=== PATIENT | female | born 1985 | race African-American/Black ===

== ENCOUNTER 2016-12-14 11:49 | Inpatient (IN) | payer MEDICAID ==
[2016-12-14] VITALS (9 sets, daily range): BP systolic 103–122; BP diastolic 55–72; PULSE 87–118; RESP 16–20; TEMP 98.7–102.8; O2SAT 99–100
[~2016-12-14] VITALS: Ht 167.6 cm; Wt 47.9 kg
[~2016-12-14 11:49] MED LIST: HYDR-3533 PO; PANT20 PO
[2016-12-14 13:01] LABS: AUTOMATED NEUTROPHIL # 8.3 TH/MM3 (1.8-7.7); BASOPHIL % 0.1 % (0.0-2.0); EOSINOPHIL % 0.1 % (0.0-4.0); HEMATOCRIT 32.5 % (35.0-46.0); LYMPH % 5.2 % (9.0-44.0); LYMPHOCYTE # 0.5 TH/MM3 (1.0-4.8); MEAN CELL VOLUME 105.2 FL (80.0-100.0); MEAN CORPUSCULAR HEMOGLOBIN 36.3 PG (27.0-34.0); MEAN CORPUSCULAR HGB CONC 34.5 % (32.0-36.0); MONO % 7.9 % (0.0-8.0); NEUT % 86.7 % (16.0-70.0); PLATELET COUNT 166 TH/MM3 (150-450); RED BLOOD COUNT 3.09 MIL/MM3 (4.00-5.30); RED CELL DISTRIBUTION WIDTH 22.7 % (11.6-17.2); WHITE BLOOD COUNT 9.6 TH/MM3 (4.0-11.0)
[2016-12-14 13:02] LABS: HEMO FLAGS AUTO DIFF
[2016-12-14 13:08] LABS: INTERNATIONAL NORMALIZED RATIO 1.1 RATIO; PROTHROMBIN TIME - PATIENT 12.4 SEC (9.8-11.6)
[2016-12-14 13:19] LABS: ALT (GPT) 14 U/L (10-53); ANION GAP 9 MEQ/L (5-15); AST (GOT) 15 U/L (15-37); BICARBONATE 27.3 MEQ/L (21.0-32.0); BLOOD UREA NITROGEN 7 MG/DL (7-18); CHLORIDE 105 MEQ/L (98-107); GLOMERULAR FILTRATION RATE 112 ML/MIN (>89); POTASSIUM 3.6 MEQ/L (3.5-5.1); SODIUM (NA) 141 MEQ/L (136-145)
[2016-12-14 13:21] LABS: ALKALINE PHOSPHATASE 91 U/L (45-117)
[2016-12-14 13:27] LABS: SCAN/DIFF AUTO DIFF CONFIRMED
[2016-12-14] MEDS ORDERED: SODIUM CHLOR 0.9% 1000 ML INJ 1,000 ML IV ONE (15:15)
[2016-12-14] MEDS ORDERED: ACETAMINOPHEN 500 MG CPLT PO ONE (15:30)
--- NOTE | 2016-12-14 15:32 | PD ---
HPI Chief Complaint: GI Complaint Time Seen by Provider: 14:54 Travel History International Travel<30 days: No Contact w/Intl Traveler<30days: No Traveled to known affect area: No History of Present Illness HPI This is a 31-year-old female who has a history of recurrent esophageal strictures and multiple abdominal surgeries in the past who presents to the emergency department with 2 days of lower abdominal pain, constant, cramping, moderate severity associated with blood and blood clots in her urine. She's also had a fever. She feels nauseous but has not vomited. She also reports that over the past week she has had increasing trouble both eating solids and drinking liquids. She has a history of recurrent esophageal strictures and is followed by advanced gastroenterology. [facility] Past Medical History Anemia: Yes Blood Disorders: No Cancer: No Cardiovascular Problems: No Diabetes: No Diminished Hearing: No Endocrine: No Gastrointestinal Disorders: Yes (DIFFICULTY SWALLOWING) GERD: Yes Genitourinary: No Hepatitis: No Hiatal Hernia: No Immune Disorder: No Musculoskeletal: No Neurologic: No Psychiatric: No Reproductive: No Respiratory: No Seizures: Yes Sickle Cell Disease: Yes (TRAIT) Thyroid Disease: No Tetanus Vaccination: > 5 Years ?: Not : 1 Para: 1 Miscarriage: 0 : 0 Past Surgical History Abdominal Surgery: No Body Medical Devices: NONE Section: Yes (2006) Genitourinary Surgery: Yes Gynecologic Surgery: Yes (C SECTION; TOTAL HYSTERECTOMY ) Hysterectomy: Yes Joint Replacement: No Pacemaker: No Other Surgery: Yes (HYSTERECTOMY) Social History Alcohol Use: No Tobacco Use: No Substance Use: No Allergies-Medications (Allergen,Severity, Reaction): Coded Allergies: Amoxicillin (Verified Allergy, Severe, Swelling, 12/14/16) Imitrex (Verified Allergy, Severe, DIZZY, 12/14/16) MIGRAINES Penicillin (Verified Allergy, Severe, HOT FLASHES, H/A, 12/14/16) ALL "CILLINS" Uncoded Allergies: ALL CILLINS (Allergy, Severe, 12/14/12) Reported Meds & Prescriptions Reported Meds & Active Scripts Active No Active Prescriptions or Reported Medications Review of Systems Except as stated in HPI: all other systems reviewed are Neg Physical Exam Narrative GENERAL: Cachectic, chronically ill-appearing SKIN: Focused skin assessment warm and dry. HEAD: Atraumatic. Normocephalic. EYES: Pupils equal and round. No injection or drainage. ENT: Moist mucous membranes NECK: Trachea midline. CARDIOVASCULAR: Regular rate and rhythm. No murmur appreciated. RESPIRATORY: Clear to auscultation. Breath sounds equal bilaterally. GASTROINTESTINAL: Abdomen soft, diffusely tender to palpation with no rebound or guarding. Urine is grossly bloody. Multiple old abdominal surgical scars MUSCULOSKELETAL: No obvious deformities. NEUROLOGICAL: Awake and alert. No obvious cranial nerve deficits. Moving all extremities. PSYCHIATRIC: Appropriate mood and affect; insight and judgment normal. Data Data Last Documented VS Vital Signs Date Time Temp Pulse Resp B/P Pulse Ox O2 Delivery O2 Flow Rate FiO2 12/14/16 16:28 98 17 115/60 99 Room Air 12/14/16 16:27 101.9 Orders Complete Blood Count With Diff (12/14/16 12:30) Comprehensive Metabolic Panel (12/14/16 12:30) Lipase (12/14/16 12:30) Prothrombin Time / Inr (Pt) (12/14/16 12:30) Act Partial Throm Time (Ptt) (12/14/16 12:30) Type And Screen (12/14/16 12:30) Lactic Acid Sepsis Protocol (12/14/16 12:30) Red Blood Cells (Rbc) (12/14/16 12:45) Urinalysis - C+S If Indicated (12/14/16 15:03) Barium Swallow (12/14/16 ) Sodium Chlor 0.9% 1000 Ml Inj (Ns 1000 M (12/14/16 15:15) Acetaminophen (Tylenol) (12/14/16 15:30) Urine Culture (12/14/16 15:14) Ciprofloxacin 400 Mg Premix (Cipro 400 M (12/14/16 16:30) Admit Order (Ed Use Only) (12/14/16 ) Labs Laboratory Tests Test 12/14/16 12/14/16 12:45 15:14 White Blood Count 9.6 TH/MM3 Red Blood Count 3.09 MIL/MM3 Hemoglobin 11.2 GM/DL Hematocrit 32.5 % Mean Corpuscular Volume 105.2 FL Mean Corpuscular Hemoglobin 36.3 PG Mean Corpuscular Hemoglobin 34.5 % Concent Red Cell Distribution Width 22.7 % Platelet Count 166 TH/MM3 Mean Platelet Volume 7.3 FL Neutrophils (%) (Auto) 86.7 % Lymphocytes (%) (Auto) 5.2 % Monocytes (%) (Auto) 7.9 % Eosinophils (%) (Auto) 0.1 % Basophils (%) (Auto) 0.1 % Neutrophils # (Auto) 8.3 TH/MM3 Lymphocytes # (Auto) 0.5 TH/MM3 Monocytes # (Auto) 0.8 TH/MM3 Eosinophils # (Auto) 0.0 TH/MM3 Basophils # (Auto) 0.0 TH/MM3 CBC Comment AUTO DIFF Differential Comment AUTO DIFF CONFIRMED Prothrombin Time 12.4 SEC Prothromb Time International 1.1 RATIO Ratio Activated Partial 28.0 SEC Thromboplast Time Sodium Level 141 MEQ/L Potassium Level 3.6 MEQ/L Chloride Level 105 MEQ/L Carbon Dioxide Level 27.3 MEQ/L Anion Gap 9 MEQ/L Blood Urea Nitrogen 7 MG/DL Creatinine 0.74 MG/DL Estimat Glomerular Filtration 112 ML/MIN Rate Random Glucose 120 MG/DL Lactic Acid Level 1.2 mmol/L Calcium Level 9.1 MG/DL Total Bilirubin 1.0 MG/DL Aspartate Amino Transf 15 U/L (AST/SGOT) Alanine Aminotransferase 14 U/L (ALT/SGPT) Alkaline Phosphatase 91 U/L Total Protein 7.4 GM/DL Albumin 3.5 GM/DL Lipase 89 U/L Blood Type B POSITIVE Antibody Screen POSITIVE Antibody Identification Non-Specific Agglutinin Crossmatch Leukocyte-Reduced Red Blood Cells Blood Bank Comment Urine Color DARK-RED Urine Turbidity CLOUDY Urine pH 6.0 Urine Specific [place] 1.013 Urine Protein 100 mg/dL Urine Glucose (UA) NEG mg/dL Urine Ketones 10 mg/dL Urine Occult Blood LARGE Urine Nitrite POS Urine Bilirubin NEG Urine Urobilinogen 2.0 MG/DL Urine Leukocyte Esterase MOD Urine RBC /hpf Urine WBC /hpf Urine Bacteria MANY /hpf Microscopic Urinalysis Comment CULTURE INDICATED MDM Medical Decision Making Medical Screen Exam Complete: Yes Emergency Medical Condition: Yes Medical Record Reviewed: Yes (patient has a history of recurrent esophageal strictures with dilation performed by GI, last in December 2015) Interpretation(s) Fever, tachycardia, normotensive Macrocytic anemia 86% neutrophils Electrolytes are reassuring Lactic acid is 1.2 Lipase is normal Urinalysis: Large amount of bacteria, blood, with positive nitrites and moderate leukocyte esterase consistent with infection Last 24 hours Impressions Barium Swallow X-Ray 12/14/16 0000 Signed Impressions: Service Date/Time: Wednesday, December 14, 2016 15:31 - CONCLUSION: There is diffuse narrowing of the hypopharynx extending down to the upper esophageal sphincter possibly due to submucosal edema in the exact etiology is not certain not present on the study from 2012. There is also mild narrowing of the upper esophagus at the level of the aortic arch without a definite stricture at this site. Luciano Choi MD Differential Diagnosis Cystitis, pyelonephritis, sepsis, esophageal stricture, dehydration Narrative Course This is a 31-year-old female who presents to the emergency department with fever , abdominal pain and hematuria. She was placed in a monitor and an IV was established. Labs are obtained which were reassuring. Urinalysis is consistent with an infection. I suspect the patient has pyelonephritis. She was given a dose of IV ciprofloxacin and IV hydration. She is also reporting dysphasia. She has a history of recurrent esophageal strictures. A barium swallow was performed which demonstrates narrowing of the hypopharynx above the upper esophageal stricture. I discussed this with Dr. Ann. She says they' re willing to see the patient while she is admitted however it would be reasonable to get ENT to evaluate the patient. The patient has no hoarseness, a normal-appearing posterior pharynx, and no signs of upper airway obstruction on exam. Physician Communication Physician Communication Discussed with Dr. Ann and Dr. Early Diagnosis Primary Impression: Pyelonephritis Additional Impression: Dysphagia Qualified Code: R13.10 - Dysphagia, unspecified type Admitting Information Admitting Physician Requests: Admit Scripts No Active Prescriptions or Reported Meds Estefania Mcleod MD Dec 14, 2016 15:32
[2016-12-14 15:42] LABS: BACTERIA, URINE MANY /hpf; BLOOD, URINE LARGE (NEG); COMMENT (UR) CULTURE INDICATED; CULTURE IF INDICATED CULTURE INDICATED; GLUCOSE,URINE NEG (NEG); KETONE, URINE 10 mg/dL (NEG)
[2016-12-14 15:43] LABS: NITRITE,URINE POS (NEG); URINE COLOR DARK-RED (YELLW/STRAW)
--- NOTE | 2016-12-14 16:02 | RADRPT ---
EXAM DATE/TIME: 12/14/2016 15:31 [facility] COMPARISON: BARIUM SWALLOW, April 10, 2013, 14:58. INDICATIONS : Dysphagia. FLUORO TIME: 0.5 minutes IMAGE COUNT: 40 CONTRAST: 1. Liquid E-Z Paque Barium Sulfate (60% w/v, 41% w.w) MEDICAL HISTORY : None. SURGICAL HISTORY : Hysterectomy. Esophageal dilation. ENCOUNTER: Initial ACUITY: 2 days PAIN SCORE: 10/10 LOCATION: Bilateral espophagus FINDINGS: Single contrast examination was performed. The patient has an anastomosis from distal esophagus to sm all bowel which appears patent and previously seen diverticulum is no longer seen. There appears to b e slight narrowing at the level of the aortic arch involving the upper esophagus by almost 50% not pr esent on the prior study from 2012 in addition to narrowing of the hypopharynx extending down to the level of the upper esophageal sphincter not present previously almost 50-60% diffusely. This could be due to submucosal edema and the exact etiology is not certain. CONCLUSION: There is diffuse narrowing of the hypopharynx extending down to the upper esophageal sphincter possib ly due to submucosal edema in the exact etiology is not certain not present on the study from 2012. T here is also mild narrowing of the upper esophagus at the level of the aortic arch without a definite stricture at this site. Luciano Choi MD on December 14, 2016 at 15:56 Board Certified Radiologist. This report was verified electronically.
[2016-12-14] MEDS ORDERED: CIPROFLOXACIN 400 MG PREMIX 200 ML IV ONE (16:30)
--- NOTE | 2016-12-14 17:23 | HHI.HP ---
[facility] Primary Care Physician No Primary Care Physician Admission Diagnosis pyelonephritis, dysphagia Diagnoses: Chief Complaint: lower abdominal pain Travel History International Travel<30 Days: No Contact w/Intl Traveler <30 Da: No Traveled to Known Affected Are: No Sepsis Criteria SIRS Criteria (2 or more): Temp > 100.9 or < 96.8, Heart rate over 90 Sepsis Criteria (SIRS+source): Infect source susp/known History of Present Illness 31 y/o female with a of esophageal strictures and multiple abdominal surgeries as a baby (unsure what kind). Over the last week she has had trouble swallowing food and liquids. Cold water she can tolerate cause it feels good. Two days ago she began to have abdominal pain across her lower abdomen. She describes it as throbbing and constant, 10/10. She did use a heating pad with some relief. Complains of frequent urination, hematuria,nausea but no vomiting. She does have a fever upon arrival, but unsure if she had one at home. She has tolerated food but nothing heavy the last 2 days. Denies any diarrhea or constipation. Review of Systems Constitutional: COMPLAINS OF: Fever, DENIES: Chills Respiratory: DENIES: Shortness of breath Cardiovascular: DENIES: Chest pain, Lower Extremity Edema Gastrointestinal: COMPLAINS OF: Abdominal pain, Nausea, DENIES: Constipation, Diarrhea, Vomiting Genitourinary: COMPLAINS OF: Urinary frequency, Hematuria Musculoskeletal: DENIES: Back pain, Neck pain Integumentary: DENIES: Rash Neurologic: DENIES: Headache Past Family Social History Past Medical History Esophageal strictures Past Surgical History C Section Hysterectomy esophageal dilation Reported Medications Reported Meds & Active Scripts Active No Active Prescriptions or Reported Medications Allergies: Coded Allergies: Amoxicillin (Verified Allergy, Severe, Swelling, 12/14/16) Imitrex (Verified Allergy, Severe, DIZZY, 12/14/16) MIGRAINES Penicillin (Verified Allergy, Severe, HOT FLASHES, H/A, 12/14/16) ALL "CILLINS" Uncoded Allergies: ALL CILLINS (Allergy, Severe, 12/14/12) Active Ordered Medications Current Medications Medications (Trade) Dose Ordered Sig/Cara Route Start Time Stop Time Status Last Admin (Cipro 400 Mg Premix) 200 ml @ 200 mls/hr ONCE ONCE IV 12/14/16 16:30 12/14/16 17:29 12/14/16 16:29 Family History Grandfather: DM Mom: DM, breast cancer Social History Tobacco use: Denies Alcohol use: Denies Illicit drug use: Marijuana daily in AM Physical Exam Vital Signs Vital Signs Date Time Temp Pulse Resp B/P Pulse Ox O2 Delivery O2 Flow Rate FiO2 12/14/16 16:28 98 17 115/60 99 Room Air 12/14/16 16:27 101.9 12/14/16 15:19 102.8 12/14/16 14:57 16 12/14/16 14:57 108 16 122/55 99 Room Air 12/14/16 11:51 100.9 118 20 109/64 99 Room Air Physical Exam GENERAL: This is a well-nourished, well-developed patient, in no apparent distress. SKIN: No rashes, ecchymoses or lesions. Cool and dry. HEAD: Atraumatic. Normocephalic. No temporal or scalp tenderness. EYES: Pupils equal round and reactive. No injection or drainage. ENT: Nose without bleeding, purulent drainage or septal hematoma. Throat without erythema, tonsillar hypertrophy or exudate. Uvula midline. Airway patent. NECK: Trachea midline. No JVD with mild lymphadenopathy. Supple, nontender, no meningeal signs. CARDIOVASCULAR: Regular rate and rhythm without murmurs, gallops, or rubs. RESPIRATORY: Clear to auscultation. Breath sounds equal bilaterally. No wheezes , rales, or rhonchi. GASTROINTESTINAL: Abdomen soft, Lower bilateral quadrant tenderness and bilateral flank pain, nondistended. Old mid abdominal scar noted. No guarding. MUSCULOSKELETAL: Extremities without clubbing, cyanosis, or edema. No joint tenderness, effusion, or edema noted. No calf tenderness. NEUROLOGICAL: Awake and alert. Motor and sensory grossly within normal limits. Five out of 5 muscle strength in all muscle groups. Normal speech. Laboratory Laboratory Tests Test 12/14/16 12/14/16 12:45 15:14 White Blood Count 9.6 Red Blood Count 3.09 Hemoglobin 11.2 Hematocrit 32.5 Mean Corpuscular Volume 105.2 Mean Corpuscular Hemoglobin 36.3 Mean Corpuscular Hemoglobin 34.5 Concent Red Cell Distribution Width 22.7 Platelet Count 166 Mean Platelet Volume 7.3 Neutrophils (%) (Auto) 86.7 Lymphocytes (%) (Auto) 5.2 Monocytes (%) (Auto) 7.9 Eosinophils (%) (Auto) 0.1 Basophils (%) (Auto) 0.1 Neutrophils # (Auto) 8.3 Lymphocytes # (Auto) 0.5 Monocytes # (Auto) 0.8 Eosinophils # (Auto) 0.0 Basophils # (Auto) 0.0 CBC Comment AUTO DIFF Differential Comment AUTO DIFF CONFIRMED Prothrombin Time 12.4 Prothromb Time International 1.1 Ratio Activated Partial 28.0 Thromboplast Time Sodium Level 141 Potassium Level 3.6 Chloride Level 105 Carbon Dioxide Level 27.3 Anion Gap 9 Blood Urea Nitrogen 7 Creatinine 0.74 Estimat Glomerular Filtration 112 Rate Random Glucose 120 Lactic Acid Level 1.2 Calcium Level 9.1 Total Bilirubin 1.0 Aspartate Amino Transf 15 (AST/SGOT) Alanine Aminotransferase 14 (ALT/SGPT) Alkaline Phosphatase 91 Total Protein 7.4 Albumin 3.5 Lipase 89 Blood Type B POSITIVE Antibody Screen POSITIVE Antibody Identification Non-Specific Agglutinin Crossmatch Leukocyte-Reduced Red Blood Cells Blood Bank Comment Urine Color DARK-RED Urine Turbidity CLOUDY Urine pH 6.0 Urine Specific [place] 1.013 Urine Protein 100 Urine Glucose (UA) NEG Urine Ketones 10 Urine Occult Blood LARGE Urine Nitrite POS Urine Bilirubin NEG Urine Urobilinogen 2.0 Urine Leukocyte Esterase MOD Urine RBC Urine WBC Urine Bacteria MANY Microscopic Urinalysis Comment CULTURE INDICATED Date/Time Procedure Status Source Growth 12/14/16 15:14 Urine Culture Received Urine Clean Catch Pending Result Diagram: 12/14/16 1245 12/14/16 1245 Imaging Last Impressions Barium Swallow X-Ray 12/14/16 0000 Signed Impressions: Service Date/Time: Wednesday, December 14, 2016 15:31 - CONCLUSION: There is diffuse narrowing of the hypopharynx extending down to the upper esophageal sphincter possibly due to submucosal edema in the exact etiology is not certain not present on the study from 2012. There is also mild narrowing of the upper esophagus at the level of the aortic arch without a definite stricture at this site. Luciano Choi MD Assessment and Plan Problem List: (1) Severe sepsis ICD Code: A41.9 Status: Acute (2) Pyelonephritis ICD Code: N12 Status: Acute (3) Dysphagia ICD Code: R13.10 Status: Acute Assessment and Plan 31 y/o female with a hx of esophageal strictures and multiple abdominal surgeries as a baby (unsure what kind). Over the last week she has had trouble swallowing food and liquids. Cold water she can tolerate cause it feels good. Two days ago she began to have abdominal pain across her lower abdomen. Sepsis: Temp 102.8, HR 108, related to UTI -UA shows Large occult blood, mod leukocyte esterase, culture pending -Cipro given in ED, will switch to Rocephin -CBC in AM. will obtained blood cultures. lactic acid WNL. -US abdomen ordered r/o other etiology -Supportive IVF Ns@125ml/hr -[place] for pain management Dysphagia, chronic, but worse the last week -Barium Swallow shows diffuse narrowing of the hypopharynx extending down to the upper esophageal sphincter possibly due to submucosal edema in the exact etiology is not certain not present on the study from 2012. There is also mild narrowing of the upper esophagus at the level of the aortic arch without a definite stricture at this site. -Consult GI and ENT for recommendations -Full liquid diet DVT prophylaxis: SCDs Discussed Condition With Patient, and nursing staff Physician Certification 2 Midnight Certification Type: Admission for Inpatient Services Order for Inpatient Services The services are ordered in accordance with Medicare regulations or non- Medicare payer requirements, as applicable. In the case of services not specified as inpatient-only, they are appropriately provided as inpatient services in accordance with the 2-midnight benchmark. Estimated LOS (days): 3 days is the estimated time the patient will need to remain in the hospital, assuming treatment plan goals are met and no additional complications. Post-Hospital Plan: Home Medical Decision Making Impression and Plan The exam, history, and the medical decision-making described in the above note were completed with the assistance of the mid-level provider. I reviewed and agree with the findings presented. I attest that I had a [id number] encounter with the patient on the same day, and personally performed and documented my assessment and findings in the medical record. patient c/o abdominal pain. No N/V or constipation or diarrhea. Denied any vaginal discharge. no new partners. Gen NAD Abd: soft TTP diffuse in lower abdomen and back. no peritoneal signs. A/P Sepsis due to UTI treat with rocephin pending cultures. will get abdominal us. Total Minutes: 45 Problem Qualifiers (1) Dysphagia: Qualified Code: R13.10 - Dysphagia, unspecified type Sully Sharma Dec 14, 2016 17:23 Kimberley Early MD Dec 14, 2016 17:59
[2016-12-14] MEDS ORDERED: SODIUM CHLORIDE 0.9% FLUSH 10 ML FLUSH IV FLUSH PRN (17:45)
[2016-12-14] MEDS ORDERED: NALOXONE HCL 0.4 MG/ML AMP IV PRN (17:45)
[2016-12-14] MEDS ORDERED: BISACODYL 10 MG SUPP RECTAL PRN (17:45)
[2016-12-14] MEDS ORDERED: ONDANSETRON HCL 4 MG/2 ML VIAL IVP PRN (17:45)
[2016-12-14] MEDS ORDERED: cefTRIAXone INJ 1,000 MG in SODIUM CHLORIDE 0.9% INJ 100 ML IV SCH (18:00)
[2016-12-14] MEDS: SODIUM CHLOR 0.9% 1000 ML INJ 1,000 ML IV SCH (18:18)
[2016-12-14] MEDS: MORPHINE SULFATE 4 MG/ML INJ IV PRN ×2 (19:04→22:49)
--- NOTE | 2016-12-14 19:50 | RADRPT ---
EXAM DATE/TIME: 12/14/2016 18:04 [facility] COMPARISON: No previous studies available for comparison. INDICATIONS : Abdominal pain. MEDICAL HISTORY : Gastroesophageal reflux disease. Seizures. . SURGICAL HISTORY : Hysterectomy. section. Sickle cell trait. Anemia. Blood transfusion. ENCOUNTER: Initial ACUITY: 1 day PAIN SCORE: 4/10 LOCATION: Abdomen. MEASUREMENTS: LIVER: 17.5 cm length COMMON DUCT: 3 mm RIGHT KIDNEY: 11.7 x 6.2 x 4.2 cm LEFT KIDNEY: 12.7 x 6.3 x 5.2 cm SPLEEN: 10.4 cm length AORTA: 2.2cm maximal FINDINGS: LIVER: Normal echotexture without focal lesion or ductal dilatation. Normal flow velocity and direction in t he main portal vein. COMMON DUCT: No intraluminal mass or stone visualized. GALLBLADDER: Contains no stones, demonstrates no wall thickening or pericholecystic fluid. PANCREAS: The visualized portions are within normal limits. RIGHT KIDNEY: No hydronephrosis, stone or mass. LEFT KIDNEY: No hydronephrosis, stone or solid mass.14 mm simple mid zone cyst. SPLEEN: No focal lesion. AORTA: Non aneurysmal. IVC: Within normal limits. CONCLUSION: No acute abnormality demonstrated. Simple, benign appearing cyst of the left kidney incidentally note sandy Campbell MD on December 14, 2016 at 19:47 Board Certified Radiologist. This report was verified electronically.
[2016-12-14] MEDS: SODIUM CHLORIDE 0.9% FLUSH 10 ML FLUSH IV FLUSH SCH (21:00)
[2016-12-14] MEDS: ACETAMINOPHEN 325 MG TAB PO PRN (21:13)
[2016-12-14] MEDS: ACETAMINOPHEN 325MG/HYDROcodone 7.5MG/15ML UDC PO PRN (21:29)
[2016-12-15] VITALS (7 sets, daily range): BP systolic 96–115; BP diastolic 54–73; PULSE 82–90; RESP 16–20; TEMP 96.8–101.4; O2SAT 97–100
[2016-12-15] MEDS: SODIUM CHLOR 0.9% 1000 ML INJ 1,000 ML IV SCH ×3 (01:09→21:30)
[2016-12-15] MEDS: ACETAMINOPHEN 325MG/HYDROcodone 7.5MG/15ML UDC PO PRN ×3 (03:46→21:28)
[2016-12-15 05:36] LABS: AUTOMATED NEUTROPHIL # 6.8 TH/MM3 (1.8-7.7); BASOPHIL % 0.2 % (0.0-2.0); EOSINOPHIL % 0.1 % (0.0-4.0); HEMATOCRIT 26.5 % (35.0-46.0); LYMPH % 13.4 % (9.0-44.0); LYMPHOCYTE # 1.2 TH/MM3 (1.0-4.8); MEAN CELL VOLUME 106.6 FL (80.0-100.0); MEAN CORPUSCULAR HEMOGLOBIN 35.7 PG (27.0-34.0); MEAN CORPUSCULAR HGB CONC 33.5 % (32.0-36.0); MONO % 9.2 % (0.0-8.0); NEUT % 77.1 % (16.0-70.0); PLATELET COUNT 123 TH/MM3 (150-450); RED BLOOD COUNT 2.48 MIL/MM3 (4.00-5.30); RED CELL DISTRIBUTION WIDTH 22.7 % (11.6-17.2); WHITE BLOOD COUNT 8.9 TH/MM3 (4.0-11.0)
[2016-12-15 05:42] LABS: HEMO FLAGS AUTO DIFF
[2016-12-15 05:48] LABS: BICARBONATE 26.3 MEQ/L (21.0-32.0); POTASSIUM 3.9 MEQ/L (3.5-5.1)
[2016-12-15] MEDS: MORPHINE SULFATE 4 MG/ML INJ IV PRN ×4 (06:08→15:44)
--- NOTE | 2016-12-15 06:52 | PD.CONS ---
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 Has a assisted history of dysphagia and esophageal stricture. has required GI endoscopy multiple times in the past. Admitted now with lower GI complaints. Had fever and white count on admission, but these are better now. Barium swallow shows upper esophageal stricure with slowing of barium to hypopharynx. No hoarseness, no throat pain. Review of Systems Ears, nose, mouth, throat: DENIES: Oral lesions, Hoarseness Past Family Social History Allergies: Coded Allergies: Amoxicillin (Verified Allergy, Severe, Swelling, 12/14/16) Imitrex (Verified Allergy, Severe, DIZZY, 12/14/16) MIGRAINES Penicillin (Verified Allergy, Severe, HOT FLASHES, H/A, 12/14/16) ALL "CILLINS" Uncoded Allergies: ALL CILLINS (Allergy, Severe, 12/14/12) Past Medical History Esophageal strictures Physical Exam Vital Signs Vital Signs Date Time Temp Pulse Resp B/P Pulse Ox O2 Delivery O2 Flow Rate FiO2 12/15/16 04:00 97.2 83 16 98/55 100 12/15/16 00:00 98.8 90 16 96/54 97 12/14/16 21:30 101.7 101 18 120/65 100 12/14/16 21:09 100.9 12/14/16 19:05 98.7 87 18 103/64 99 Room Air 12/14/16 18:16 99.7 92 17 115/72 100 Room Air 12/14/16 16:28 98 17 115/60 99 Room Air 12/14/16 16:27 101.9 12/14/16 15:19 102.8 12/14/16 14:57 16 12/14/16 14:57 108 16 122/55 99 Room Air 12/14/16 11:51 100.9 118 20 109/64 99 Room Air Physical Exam GENERAL: This is a well-nourished, well-developed patient, in no apparent distress. SKIN: No rashes, ecchymoses or lesions. Cool and dry. HEAD: Atraumatic. Normocephalic. No temporal or scalp tenderness. EYES: Pupils equal round and reactive. Extraocular motions intact. No scleral icterus. No injection or drainage. ENT: Nose without bleeding, purulent drainage or septal hematoma. Throat without erythema, tonsillar hypertrophy or exudate. Uvula midline. Airway patent. NECK: Trachea midline. No JVD or lymphadenopathy. Supple, nontender, no meningeal signs. Laboratory Laboratory Tests Test 12/14/16 12/14/16 12/15/16 12:45 15:14 03:46 White Blood Count 9.6 8.9 Red Blood Count 3.09 2.48 Hemoglobin 11.2 8.9 Hematocrit 32.5 26.5 Mean Corpuscular Volume 105.2 106.6 Mean Corpuscular Hemoglobin 36.3 35.7 Mean Corpuscular Hemoglobin 34.5 33.5 Concent Red Cell Distribution Width 22.7 22.7 Platelet Count 166 123 Mean Platelet Volume 7.3 7.9 Neutrophils (%) (Auto) 86.7 77.1 Lymphocytes (%) (Auto) 5.2 13.4 Monocytes (%) (Auto) 7.9 9.2 Eosinophils (%) (Auto) 0.1 0.1 Basophils (%) (Auto) 0.1 0.2 Neutrophils # (Auto) 8.3 6.8 Lymphocytes # (Auto) 0.5 1.2 Monocytes # (Auto) 0.8 0.8 Eosinophils # (Auto) 0.0 0.0 Basophils # (Auto) 0.0 0.0 CBC Comment AUTO DIFF AUTO DIFF Differential Comment AUTO DIFF CONFIRMED Prothrombin Time 12.4 Prothromb Time International 1.1 Ratio Activated Partial 28.0 Thromboplast Time Sodium Level 141 143 Potassium Level 3.6 3.9 Chloride Level 105 110 Carbon Dioxide Level 27.3 26.3 Anion Gap 9 7 Blood Urea Nitrogen 7 5 Creatinine 0.74 0.67 Estimat Glomerular Filtration 112 126 Rate Random Glucose 120 106 Lactic Acid Level 1.2 Calcium Level 9.1 8.1 Total Bilirubin 1.0 Aspartate Amino Transf 15 (AST/SGOT) Alanine Aminotransferase 14 (ALT/SGPT) Alkaline Phosphatase 91 Total Protein 7.4 Albumin 3.5 Lipase 89 Blood Type B POSITIVE Antibody Screen POSITIVE Antibody Identification Non-Specific Agglutinin Crossmatch Leukocyte-Reduced Red Blood Cells Blood Bank Comment Urine Color DARK-RED Urine Turbidity CLOUDY Urine pH 6.0 Urine Specific Laura 1.013 Urine Protein 100 Urine Glucose (UA) NEG Urine Ketones 10 Urine Occult Blood LARGE Urine Nitrite POS Urine Bilirubin NEG Urine Urobilinogen 2.0 Urine Leukocyte Esterase MOD Urine RBC Urine WBC Urine Bacteria MANY Microscopic Urinalysis Comment CULTURE INDICATED Date/Time Procedure Status Source Growth 12/14/16 19:10 Aerobic Blood Culture Received Blood Peripheral Pending 12/14/16 19:10 Anaerobic Blood Culture Received Blood Peripheral Pending 12/14/16 15:14 Urine Culture Received Urine Clean Catch Pending Result Diagram: 12/15/16 0346 12/15/16 0346 Assessment and Plan 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 No fever or elevated white count now. No hoarseness or ENT complaints. Well known to GI, defer to them. ENT prn. Michael Rivers MD Dec 15, 2016 06:52
[2016-12-15 09:00] LABS: BANDS 7 % (0-6); NEUTROPHIL # MANUAL DIFF 7.8 TH/MM3 (1.8-7.7); POLYS (SEG NEUTROPHILS) 81 % (16-70); SCAN/DIFF FINAL DIFF MANUAL; WBC DIFF SAMPLE 100
[2016-12-15] MEDS: SODIUM CHLORIDE 0.9% FLUSH 10 ML FLUSH IV FLUSH SCH ×2 (09:00→21:29)
[2016-12-15 09:01] LABS: PLATELET ESTIMATE SMEAR LOW (NORMAL); PLATELET MORPHOLOGY NORMAL (NORMAL)
[2016-12-15] MEDS: DOCUSATE SODIUM 100 MG CAP PO SCH ×2 (12:14→21:28)
--- NOTE | 2016-12-15 13:47 | PD.CONS ---
HPI History of Present Illness This is a 31 year old with a hx of gastric bypass surgery due to an injury to the stomach when she was little and known esophageal strictures who is currently hospitalized for pyelonephritis and dysphagia. She reports that the injury happened when she was an infant and that her mother does not like to talk about it so she is not really sure what happened, but that she required a couple of surgeries to correct this. She is known to our service and has had EGD with dilatations and foreign body removal related to her esophageal strictures in the past. Her last EGD with dilatation was (12/30/2015) with Dr. Pineda and this revealed a long stricture in the lower third of the esophagus, s/ p dilation using a 14 mm savary dilator over guidewire, slightly irregular Z line, s/p biopsy to r/o zavala's esophagus, S/P gastrectomy and esophago- jejunostomy with normal small bowel, retroflexed views revealed no abnormalities. It was recommended that she have a repeat EGD with balloon dilatation in 3 months. Pathology revealed squamocolumnar mucosa with intestinal metaplasia consistent with Zavala's esophagus and moderate chronic inflammation including numerous eosinophils consistent with reflux. Negative for dysplasia or malignancy. She was evaluated with Barium Swallow (12/14/16)---- > There is diffuse narrowing of the hypopharynx extending down to the upper esophageal sphincter possibly due to submucosal edema in the exact etiology is not certain not present on the study from 2012. There is also mild narrowing of the upper esophagus at the level of the aortic arch without a definite stricture at this site. GI and ENT was consulted. She was evaluated by Dr. Rivers with ENT and he has deferred further evaluation and treatment to the GI service, given her long history of known strictures and the fact that she is well established with our service. She reports for a while that she was getting dilatations about every 3-6 months. She had a lapse in her insurance and therefore she was not able to have this done as recommended. She reports that she just recently had back on insurance and was in the process of trying to schedule an appointment, when she started having more issues. She reports that she's been having problems swallowing for the past 2-3 days. She feels that solid foods are getting stuck in her upper esophagus and she has difficulty passing this down. She has associated odynophagia described as a pressure in her esophagus She is able to get liquids down without any difficulty. She reports she has GERD and does have daily symptoms with heartburn and reflux, but is not currently taking any medications at home for this. She denies any weight loss. She reports that she has had fevers, chills , flank pain, and hematuria for about 4 days now. (Argenis Brar) PFSH Past Medical History Esophageal strictures Zavala's Esophagus. Stomach injury requiring bypass surgery as child Hx foreign body in esophagus Hx Ileitis/Jejunitis Hx pancytopenia GERD Past Surgical History C Section Hysterectomy Multiple EGD's with dilatation Gastric bypass surgery secondary to stomach injury as child (Argenis Brar) Coded Allergies: Amoxicillin (Verified Allergy, Severe, Swelling, 12/14/16) Imitrex (Verified Allergy, Severe, DIZZY, 12/14/16) MIGRAINES Penicillin (Verified Allergy, Severe, HOT FLASHES, H/A, 12/14/16) ALL "CILLINS" Uncoded Allergies: ALL CILLINS (Allergy, Severe, 12/14/12) Medications Allergies Coded Allergies Type Severity Reaction Last Updated Verified Amoxicillin Allergy Severe Swelling 12/14/16 Yes Imitrex Allergy Severe DIZZY 12/14/16 Yes Penicillin Allergy Severe HOT FLASHES, H/A 12/14/16 Yes Uncoded Allergies Type Severity Reaction Last Updated Verified ALL CILLINS Allergy Severe 12/14/12 Active Scripts Medications Dose Route/Sig Days Date Category No Active Prescriptions or Reported Medications Rx Family History Grandfather had DM Mom with DM, breast cancer Social History Denies the use of tobacco/etoh. Does use Marijuana daily in am. (Argenis Brar) Review of Systems Constitutional: COMPLAINS OF: Fever, Chills, DENIES: Weight loss, Change in appetite Respiratory: DENIES: Cough Cardiovascular: DENIES: Chest pain Gastrointestinal: COMPLAINS OF: Abdominal pain, Difficulty Swallowing, Odynophagia, Heartburn, DENIES: Black stools, Bloody stools, Nausea, Vomiting Genitourinary: COMPLAINS OF: Hematuria Musculoskeletal: COMPLAINS OF: Back pain Hematologic/lymphatic: DENIES: Bruising Neurologic: DENIES: Headache Psychiatric: DENIES: Confusion (Argenis Brar) GI Exam Vitals I&O Vital Signs Date Time Temp Pulse Resp B/P Pulse Ox O2 Delivery O2 Flow Rate FiO2 12/15/16 12:00 97.1 85 18 98/54 99 12/15/16 08:00 98.4 86 18 106/68 99 12/15/16 04:00 97.2 83 16 98/55 100 12/15/16 00:00 98.8 90 16 96/54 97 12/14/16 21:30 101.7 101 18 120/65 100 12/14/16 21:09 100.9 12/14/16 19:05 98.7 87 18 103/64 99 Room Air 12/14/16 18:16 99.7 92 17 115/72 100 Room Air 12/14/16 16:28 98 17 115/60 99 Room Air 12/14/16 16:27 101.9 12/14/16 15:19 102.8 12/14/16 14:57 16 12/14/16 14:57 108 16 122/55 99 Room Air I/O 12/14/16 12/14/16 12/14/16 12/15/16 12/15/16 12/15/16 07:00 15:00 23:00 07:00 15:00 23:00 Intake Total 1470 ml Output Total 775 ml Balance 695 ml Intake Oral 120 ml IV Total 1350 ml Output Urine Total 775 ml # Voids 1 1 Imaging Last Impressions Barium Swallow X-Ray 12/14/16 0000 Signed Impressions: Service Date/Time: Wednesday, December 14, 2016 15:31 - CONCLUSION: There is diffuse narrowing of the hypopharynx extending down to the upper esophageal sphincter possibly due to submucosal edema in the exact etiology is not certain not present on the study from 2012. There is also mild narrowing of the upper esophagus at the level of the aortic arch without a definite stricture at this site. Luciano Choi MD Abdomen Ultrasound 12/14/16 0000 Signed Impressions: Service Date/Time: Wednesday, December 14, 2016 18:04 - CONCLUSION: No acute abnormality demonstrated. Simple, benign appearing cyst of the left kidney incidentally noted. Marck Campbell MD Laboratory Test 12/14/16 12/15/16 15:14 03:46 Urine Color DARK-RED Urine Turbidity CLOUDY Urine pH 6.0 Urine Specific Adin 1.013 Urine Protein 100 mg/dL Urine Glucose (UA) NEG mg/dL Urine Ketones 10 mg/dL Urine Occult Blood LARGE Urine Nitrite POS Urine Bilirubin NEG Urine Urobilinogen 2.0 MG/DL Urine Leukocyte Esterase MOD Urine RBC /hpf Urine WBC /hpf Urine Bacteria MANY /hpf Microscopic Urinalysis Comment CULTURE INDICATED White Blood Count 8.9 TH/MM3 Red Blood Count 2.48 MIL/MM3 Hemoglobin 8.9 GM/DL Hematocrit 26.5 % Mean Corpuscular Volume 106.6 FL Mean Corpuscular Hemoglobin 35.7 PG Mean Corpuscular Hemoglobin 33.5 % Concent Red Cell Distribution Width 22.7 % Platelet Count 123 TH/MM3 Mean Platelet Volume 7.9 FL Neutrophils (%) (Auto) 77.1 % Lymphocytes (%) (Auto) 13.4 % Monocytes (%) (Auto) 9.2 % Eosinophils (%) (Auto) 0.1 % Basophils (%) (Auto) 0.2 % Neutrophils # (Auto) 6.8 TH/MM3 Lymphocytes # (Auto) 1.2 TH/MM3 Monocytes # (Auto) 0.8 TH/MM3 Eosinophils # (Auto) 0.0 TH/MM3 Basophils # (Auto) 0.0 TH/MM3 CBC Comment AUTO DIFF Differential Total Cells 100 Counted Neutrophils % (Manual) 81 % Band Neutrophils % 7 % Lymphocytes % 9 % Monocytes % 3 % Neutrophils # (Manual) 7.8 TH/MM3 Differential Comment FINAL DIFF MANUAL Platelet Estimate LOW Platelet Morphology Comment NORMAL Sodium Level 143 MEQ/L Potassium Level 3.9 MEQ/L Chloride Level 110 MEQ/L Carbon Dioxide Level 26.3 MEQ/L Anion Gap 7 MEQ/L Blood Urea Nitrogen 5 MG/DL Creatinine 0.67 MG/DL Estimat Glomerular Filtration 126 ML/MIN Rate Random Glucose 106 MG/DL Calcium Level 8.1 MG/DL Date/Time Procedure Status Source Growth 12/14/16 19:10 Aerobic Blood Culture - Preliminary Resulted Blood Peripheral NO GROWTH IN 1 DAY 12/14/16 19:10 Anaerobic Blood Culture - Preliminary Resulted Blood Peripheral NO GROWTH IN 1 DAY 12/14/16 15:14 Urine Culture - Preliminary Resulted Urine Clean Catch Gram Negative [place] Physical Examination HEENT: Normocephalic; atraumatic; no jaundice. CHEST: CTA CARDIAC: RRR ABDOMEN: Soft, nondistended, mild diffuse tenderness; no hepatosplenomegaly; bowel sounds are present in all four quadrants. EXTREMITIES: No clubbing, cyanosis, or edema. SKIN: Normal; no rash; no jaundice. FINANCE OFFICER: No focal deficits; alert and oriented times three. (Argenis Brar) Assessment and Plan Plan ASSESSMENT: - Esophageal stricture, dysphagia. 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 She does not know the specifics to the injury she sustained as a baby, but reports she had multiple surgeries to correct this. She is well known to our service and has required multiple EGD with dilatations. Last EGD with dilatation was (12/30/2015) with Dr. Pineda and this revealed a long stricture in the lower third of the esophagus, s/p dilation using a 14 mm savary dilator over guidewire, slightly irregular Z line, s/p biopsy to r/o zavala' s esophagus, S/P gastrectomy and esophago-jejunostomy with normal small bowel, retroflexed views revealed no abnormalities. It was recommended that she have a repeat EGD with balloon dilatation in 3 months. Pathology revealed squamocolumnar mucosa with intestinal metaplasia consistent with Zavala's esophagus and moderate chronic inflammation including numerous eosinophils consistent with reflux. Negative for dysplasia or malignancy. She had a lapse in insurance and was not able to follow up. She came to the ER for a 2-3 day hx of dysphagia with solids getting caught in her upper esophagus, fever/chills/flank pain/hematuria and was admitted for pyelonephritis and dysphagia. S/P Barium Swallow (12/14/16)----> There is diffuse narrowing of the hypopharynx extending down to the upper esophageal sphincter possibly due to submucosal edema in the exact etiology is not certain not present on the study from 2012. There is also mild narrowing of the upper esophagus at the level of the aortic arch without a definite stricture at this site. GI and ENT was consulted. S/P evaluation by Dr. Rivers, who has deferred further evaluation and treatment to GI. Liquid diet. Will plan for egd with dilatation in am. PPI - GERD/Zavala's Esophagus. Pt reports daily symptoms, but states she has been off of PPIs and does not take any medications for this at home. - Pyelonephritis/UTI. Ceftriaxone. Per primary - Sepsis with Temp/Tachycardia. Ceftriaxone. - Anemia. 8.9/26.5. PLAN: - Plan for egd +/- dilatation - Obtain consents - NPO - Add Protonix - Monitor labs - Abx per primary - Supportive care - Further recommendations to follow based on results of above - Pt seen and examined by Dr. Yang and myself and this note is written on her behalf (Argenis Brar) Physician Comments seen, examined agree with above she will like to wait another day for egd/dil we will advance to soft diet (Eneida Yang MD) Argenis Brar Dec 15, 2016 13:47 Eneida Yang MD Dec 15, 2016 19:57
[2016-12-15 15:33] LABS: MEAN CELL VOLUME 106.4 FL (80.0-100.0); MEAN CORPUSCULAR HEMOGLOBIN 36.8 PG (27.0-34.0); MEAN CORPUSCULAR HGB CONC 34.5 % (32.0-36.0); PLATELET COUNT 110 TH/MM3 (150-450); RED BLOOD COUNT 2.35 MIL/MM3 (4.00-5.30); RED CELL DISTRIBUTION WIDTH 22.5 % (11.6-17.2); REVIEW FLAG FINAL
[2016-12-15] MEDS: PANTOPRAZOLE SODIUM 40 MG VIAL IV PUSH SCH ×2 (15:44→21:29)
[2016-12-15] MEDS: ACETAMINOPHEN 325 MG TAB PO PRN (15:44)
--- NOTE | 2016-12-15 16:30 | HHI.PR ---
Subjective Remarks Follow-up for abdominal pain Patient continues to complain abdominal pain. She feels like she really hasn't gotten better. Continues to have hematuria. Deny nausea vomiting. She stated that she continues to feel constipated. Patient also continues to have fevers. Objective Vitals Vital Signs Date Time Temp Pulse Resp B/P Pulse Ox O2 Delivery O2 Flow Rate FiO2 12/15/16 15:37 101.4 90 20 115/70 99 12/15/16 12:00 97.1 85 18 98/54 99 12/15/16 08:00 98.4 86 18 106/68 99 12/15/16 04:00 97.2 83 16 98/55 100 12/15/16 00:00 98.8 90 16 96/54 97 12/14/16 21:30 101.7 101 18 120/65 100 12/14/16 21:09 100.9 12/14/16 19:05 98.7 87 18 103/64 99 Room Air 12/14/16 18:16 99.7 92 17 115/72 100 Room Air 12/14/16 16:28 98 17 115/60 99 Room Air I/O 12/14/16 12/14/16 12/14/16 12/15/16 12/15/16 12/15/16 07:00 15:00 23:00 07:00 15:00 23:00 Intake Total 1470 ml 1021 ml Output Total 775 ml 600 ml Balance 695 ml 1021 ml -600 ml Intake Oral 120 ml IV Total 1350 ml 1021 ml Output Urine Total 775 ml 600 ml # Voids 1 1 Result Diagram: 12/15/16 1448 12/15/16 0346 Objective Remarks GENERAL: in NAD CARDIOVASCULAR: Regular rate and rhythm without murmurs, gallops, or rubs. RESPIRATORY: Breath sounds equal bilaterally. No accessory muscle use. GASTROINTESTINAL: Abdomen soft, non-tender, nondistended. MUSCULOSKELETAL: No cyanosis, or edema. BACK: Positive for lower abdominal pain and bilateral CVA tenderness. Medications and IVs Current Medications Sodium Chloride (NS 1000 ml Inj) 1,000 ml @ 999 mls/hr BOLUS ONCE IV Last administered on 12/14/16t 15:53; Start 12/14/16 at 15:15; Stop 12/14/16 at 16:15 ; Status DC Acetaminophen 1000 mg 1,000 mg ONCE ONCE PO Last administered on 12/14/16 15: 54; Start 12/14/16 at 15:30; Stop 12/14/16 at 15:31; Status DC Ciprofloxacin/ Dextrose 200 ml @ 200 mls/hr ONCE ONCE IV Last administered on 12/14/16 16:29; Start 12/14/16 at 16:30; Stop 12/14/16 at 17:29; Status DC Sodium Chloride (NS 1000 ml Inj) 1,000 ml @ 125 mls/hr Q8H IV Last administered on 12/15/16 09:12; Start 12/14/16 at 17:36 Sodium Chloride (NS Flush) 2 ml UNSCH PRN IV FLUSH FLUSH AFTER USING IV ACCESS ; Start 12/14/16 at 17:45 Sodium Chloride (NS Flush) 2 ml BID IV FLUSH ; Start 12/14/16 at 21:00 Ondansetron HCl (Zofran Inj) 4 mg Q6H PRN IVP NAUSEA OR VOMITING; Start at 17:45 Bisacodyl (Dulcolax Supp) 10 mg DAILY PRN RECTAL CONSTIPATION Last administered on 12/15/16 10:22; Start 12/14/16 at 17:45 Acetaminophen (Tylenol) 650 mg Q6H PRN PO headache/fever/pain1-2 Last administered on 12/15/16 15:44; Start 12/14/16 at 17:45 Morphine Sulfate (Morphine Inj) 2 mg Q3H PRN IV BREAKTHROUGH PAIN Last administered on 12/15/16 15:44; Start 12/14/16 at 17:45 Naloxone HCl 0.4 mg 0.4 mg UNSCH PRN IV SEE LABEL COMMENTS; Start 12/14/16 at 17:45 Ceftriaxone Sodium/Sodium Chloride (Rocephin Inj/NS Inj) 100 ml @ 200 mls/hr Q24H IV Last administered on 12/14/16 18:18; Start 12/14/16 at 18:00 Acetaminophen/ Hydrocodone Bitart (Hycet 325-7.5 Mg Liq) 15 ml Q6H PRN PO pain scale 3-10 Last administered on 12/15/16 10:22; Start 12/14/16 at 17:45 Docusate Sodium (Colace) 100 mg BID PO Last administered on 12/15/16 12:14; Start 12/15/16 at 09:45 Pantoprazole Sodium (Protonix Inj) 40 mg Q12HR IV PUSH Last administered on 15:44; Start 12/15/16 at 15:00 A/P Problem List: (1) Severe sepsis ICD Code: A41.9 Status: Acute (2) Pyelonephritis ICD Code: N12 Status: Acute (3) Dysphagia ICD Code: R13.10 Status: Acute Assessment and Plan 31 y/o female with a hx of esophageal strictures and multiple abdominal surgeries as a baby (unsure what kind). Over the last week she has had trouble swallowing food and liquids. Cold water she can tolerate cause it feels good. Two days ago she began to have abdominal pain across her lower abdomen. Sepsis: Temp 102.8, HR 108, related to UTI -UA shows Large occult blood, mod leukocyte esterase, culture pending -Blood cultures are negative so far. -Cipro given in ED, will switch to Rocephin -Continue with IVF Ns@125ml/hr Abdominal pain -May be secondary to UTI. -Ultrasound abdomen was negative. Will get a CT scan of her abdomen and pelvis since she continues to be symptomatic. Urinary tract infection -Patient does continue to have fevers questionable pyelonephrosis but patient has no white count. -Will increase Rocephin dosage to 2 g IV daily pending urine cultures. Macro hematuria -May be secondary to cystitis due to UTI. -We'll get a CT scan to rule out kidney stones. Anemia -Most likely secondary to hematuria. -Will monitor hemoglobin closely. -Transfuse if patient becomes symptomatically or if hemoglobin is less than 7. Dysphagia, chronic, but worse the last week -Barium Swallow shows diffuse narrowing of the hypopharynx extending down to the upper esophageal sphincter possibly due to submucosal edema in the exact etiology is not certain not present on the study from 2012. There is also mild narrowing of the upper esophagus at the level of the aortic arch without a definite stricture at this site. -ENT signed off. -GI schedule EGD for tomorrow. DVT prophylaxis: SCDs Problem Qualifiers (1) Dysphagia: Qualified Code: R13.10 - Dysphagia, unspecified type Kimberley Early MD Dec 15, 2016 16:30
[2016-12-15] MEDS ORDERED: SODIUM CHLOR 0.9% 1000 ML INJ 1,000 ML IV ONE (16:45)
[2016-12-15] MEDS ORDERED: IOHEXOL 350 MG/ML 10 ML VIAL (for RAD DIAG) IV ONE (18:25)
[2016-12-15] MEDS: cefTRIAXone INJ 2,000 MG in SODIUM CHLORIDE 0.9% INJ 100 ML IV SCH (18:34)
--- NOTE | 2016-12-15 18:38 | RADRPT ---
EXAM DATE/TIME: 12/15/2016 18:01 [facility] COMPARISON: CT ABDOMEN & PELVIS W/O CONTRAST, March 14, 2011, 11:17. INDICATIONS : Abdomen pain with hematuria for two days. IV CONTRAST: 70 cc Omnipaque 350 (iohexol) IV ORAL CONTRAST: No oral contrast ingested. RADIATION DOSE: 9.96 CTDIvol (mGy) MEDICAL HISTORY : Seizures. SURGICAL HISTORY : Hysterectomy. ENCOUNTER: Initial ACUITY: 2 days PAIN SCALE: 8/10 LOCATION: Abdomen TECHNIQUE: Volumetric scanning of the abdomen and pelvis was performed. Using automated exposure control and ad justment of the mA and/or kV according to patient size, radiation dose was kept as low as reasonably achievable to obtain optimal diagnostic quality images. FINDINGS: Lung bases are clear. The oral contrast administered is entirely within the colon presumably due to a longer than usual delay in scanning. No significant abnormality in the liver, spleen, adrenals, right kidney or pancreas. Small left renal cysts present. There is mild left-sided hydronephrosis and mild dilatation of the left ureter. There is a calcification in both the left and right hemipelvis characteristic of phleboliths. Patient is status post hysterectomy by history. Complex areas are noted in both adnexal regions, prob ably a combination of small bowel loops and some ovarian cysts. Trace free fluid. CONCLUSION: 1. Mild left hydronephrosis and ureteral dilatation most characteristic of a mild obstructive uropath y possibly related to recent stone passage.. Calcification in left hemipelvis is characteristic of ph lebolith, unchanged from 2010. Calcification measures about 3 mm in diameter. 2. Bilateral small ovarian cysts. Ovaries are not easily from adjacent small bowel loops. Michael Umana MD on December 15, 2016 18:26 Board Certified Radiologist. This report was verified electronically.
[2016-12-16] VITALS (10 sets, daily range): BP systolic 100–112; BP diastolic 56–78; PULSE 66–82; RESP 16–20; TEMP 96.1–101.4; O2SAT 98–100
[2016-12-16] MEDS: SODIUM CHLOR 0.9% 1000 ML INJ 1,000 ML IV SCH ×2 (01:36→09:36)
[2016-12-16] MEDS: MORPHINE SULFATE 4 MG/ML INJ IV PRN ×3 (02:09→20:52)
[2016-12-16] MEDS: ACETAMINOPHEN 325 MG TAB PO PRN ×2 (02:10→17:35)
[2016-12-16] MEDS: ACETAMINOPHEN 325MG/HYDROcodone 7.5MG/15ML UDC PO PRN ×3 (05:37→17:36)
[2016-12-16 07:22] LABS: MEAN CELL VOLUME 106.1 FL (80.0-100.0); MEAN CORPUSCULAR HEMOGLOBIN 36.7 PG (27.0-34.0); MEAN CORPUSCULAR HGB CONC 34.6 % (32.0-36.0); PLATELET COUNT 93 TH/MM3 (150-450); RED BLOOD COUNT 1.98 MIL/MM3 (4.00-5.30); RED CELL DISTRIBUTION WIDTH 22.2 % (11.6-17.2); WHITE BLOOD COUNT 4.6 TH/MM3 (4.0-11.0)
[2016-12-16 07:25] LABS: REVIEW FLAG FINAL
[2016-12-16 07:44] LABS: BICARBONATE 24.3 MEQ/L (21.0-32.0); POTASSIUM 3.2 MEQ/L (3.5-5.1)
[2016-12-16] MEDS: PANTOPRAZOLE SODIUM 40 MG VIAL IV PUSH SCH ×2 (09:31→20:44)
[2016-12-16] MEDS: DOCUSATE SODIUM 100 MG CAP PO SCH ×2 (09:31→20:43)
[2016-12-16] MEDS: SODIUM CHLORIDE 0.9% FLUSH 10 ML FLUSH IV FLUSH SCH ×2 (09:32→20:44)
--- NOTE | 2016-12-16 11:11 | HHI.GIFU ---
Subjective Remarks Resting in bed. Still with odynophagia and dysphagia- was able to tolerate the scrambled eggs. States that she had a fever overnight. Epigastric pain today. (Argenis Brar) Objective Vitals I&O Vital Signs Date Time Temp Pulse Resp B/P Pulse Ox O2 Delivery O2 Flow Rate FiO2 12/16/16 07:50 96.1 81 20 111/78 99 12/16/16 05:37 99.2 81 16 107/69 100 12/16/16 02:20 17 12/16/16 02:00 101.4 12/16/16 01:30 100.7 76 16 100/56 98 12/15/16 21:49 101.0 82 16 108/73 100 12/15/16 18:34 96.8 12/15/16 15:37 101.4 90 20 115/70 99 12/15/16 12:00 97.1 85 18 98/54 99 I/O 12/15/16 12/15/16 12/15/16 12/16/16 12/16/16 12/16/16 07:00 15:00 23:00 07:00 15:00 23:00 Intake Total 1470 ml 2341 ml 1360 ml 1280 ml Output Total 775 ml 600 ml 1000 ml Balance 695 ml 2341 ml 760 ml 280 ml Intake Oral 120 ml 1320 ml 460 ml 480 ml IV Total 1350 ml 1021 ml 900 ml 800 ml Output Urine Total 775 ml 600 ml 1000 ml # Voids 5 1 # Bowel Movements 0 0 Laboratory Laboratory Tests Test 12/15/16 12/16/16 14:48 05:55 White Blood Count 7.0 4.6 Red Blood Count 2.35 1.98 Hemoglobin 8.6 7.3 Hematocrit 25.0 21.0 Mean Corpuscular Volume 106.4 106.1 Mean Corpuscular Hemoglobin 36.8 36.7 Mean Corpuscular Hemoglobin 34.5 34.6 Concent Red Cell Distribution Width 22.5 22.2 Platelet Count 110 93 Mean Platelet Volume 7.4 7.2 Sodium Level 143 Potassium Level 3.2 Chloride Level 111 Carbon Dioxide Level 24.3 Anion Gap 8 Blood Urea Nitrogen 2 Creatinine 0.82 Estimat Glomerular Filtration 100 Rate Random Glucose 134 Calcium Level 7.9 Date/Time Procedure Status Source Growth 12/14/16 19:10 Aerobic Blood Culture - Preliminary Resulted Blood Peripheral NO GROWTH IN 1 DAY 12/14/16 19:10 Anaerobic Blood Culture - Preliminary Resulted Blood Peripheral NO GROWTH IN 1 DAY 12/14/16 15:14 Urine Culture - Final Complete Urine Clean Catch Escherichia Coli Imaging Last Impressions Abdomen/Pelvis CT 12/15/16 0000 Signed Impressions: Service Date/Time: Thursday, December 15, 2016 18:01 - CONCLUSION: 1. Mild left hydronephrosis and ureteral dilatation most characteristic of a mild obstructive uropathy possibly related to recent stone passage.. Calcification in left hemipelvis is characteristic of phlebolith, unchanged from 2010. Calcification measures about 3 mm in diameter. 2. Bilateral small ovarian cysts. Ovaries are not easily from adjacent small bowel loops. Michael Umana MD Barium Swallow X-Ray 12/14/16 0000 Signed Impressions: Service Date/Time: Wednesday, December 14, 2016 15:31 - CONCLUSION: There is diffuse narrowing of the hypopharynx extending down to the upper esophageal sphincter possibly due to submucosal edema in the exact etiology is not certain not present on the study from 2012. There is also mild narrowing of the upper esophagus at the level of the aortic arch without a definite stricture at this site. Luciano Choi MD Abdomen Ultrasound 12/14/16 0000 Signed Impressions: Service Date/Time: Wednesday, December 14, 2016 18:04 - CONCLUSION: No acute abnormality demonstrated. Simple, benign appearing cyst of the left kidney incidentally noted. Marck Campbell MD Physical Exam HEENT: Normocephalic; atraumatic; no jaundice. CHEST: CTA CARDIAC: RRR ABDOMEN: Soft, nondistended, nontender; no hepatosplenomegaly; bowel sounds are present in all four quadrants. EXTREMITIES: No clubbing, cyanosis, or edema. SKIN: Normal; no rash; no jaundice. DIRECTOR SOCIAL SERVICE: No focal deficits; alert and oriented times three. (Argenis Brar [facility]) Assessment and Plan Plan ASSESSMENT: - Esophageal stricture, dysphagia. 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 She does not know the specifics to the injury she sustained as a baby, but reports she had multiple surgeries to correct this. She is well known to our service and has required multiple EGD with dilatations. Last EGD with dilatation was (12/30/2015) with Dr. Pineda and this revealed a long stricture in the lower third of the esophagus, s/p dilation using a 14 mm savary dilator over guidewire, slightly irregular Z line, s/p biopsy to r/o zavala' s esophagus, S/P gastrectomy and esophago-jejunostomy with normal small bowel, retroflexed views revealed no abnormalities. It was recommended that she have a repeat EGD with balloon dilatation in 3 months. Pathology revealed squamocolumnar mucosa with intestinal metaplasia consistent with Zavala's esophagus and moderate chronic inflammation including numerous eosinophils consistent with reflux. Negative for dysplasia or malignancy. She had a lapse in insurance and was not able to follow up. She came to the ER for a 2-3 day hx of dysphagia with solids getting caught in her upper esophagus, fever/chills/flank pain/hematuria and was admitted for pyelonephritis and dysphagia. S/P Barium Swallow (12/14/16)----> There is diffuse narrowing of the hypopharynx extending down to the upper esophageal sphincter possibly due to submucosal edema in the exact etiology is not certain not present on the study from 2012. There is also mild narrowing of the upper esophagus at the level of the aortic arch without a definite stricture at this site. GI and ENT was consulted. S/P evaluation by Dr. Rivers, who has deferred further evaluation and treatment to GI. Plan was for egd with dilatation today, but patient was painful and febrile and wanting to wait another day before proceeding. She is tolerating soft diet, although still with odynophagia/abdominal pain. PPI. EGD +/- Dilatation in am. - GERD/Zavala's Esophagus. Pt reports daily symptoms, but states she has been off of PPIs and does not take any medications for this at home. - Abdominal pain. Abdomen/Pelvis CT (12/15/16)----> 1. Mild left hydronephrosis and ureteral dilatation most characteristic of a mild obstructive uropathy possibly related to recent stone passage.. Calcification in left hemipelvis is characteristic of phlebolith, unchanged from 2010. Calcification measures about 3 mm in diameter. 2. Bilateral small ovarian cysts. Ovaries are not easily from adjacent small bowel loops. - Constipation. No BM since Wednesday. - Pyelonephritis/UTI. Ceftriaxone. Per primary - Sepsis with Temp/Tachycardia. Ceftriaxone. - Anemia. 7.3/21.0. PLAN: - Plan for egd +/- dilatation in am - Obtain consents - Soft diet - NPO after MN - Protonix - Add Miralax - Monitor labs - Abx per primary - Supportive care - Further recommendations to follow based on results of above - Pt seen and examined by Dr. Yang and myself and this note is written on her behalf (Argenis Brar) Argenis Brar Dec 16, 2016 11:11 Eneida Yang MD Dec 16, 2016 18:20
[2016-12-16] MEDS ORDERED: POTASSIUM CHLORIDE 10 MEQ CONTROLLED RELEASE TAB PO ONE (12:00)
[2016-12-16] MEDS: POLYETHYLENE GLYCOL 17 GM PKG PO SCH (12:11)
--- NOTE | 2016-12-16 13:46 | HHI.PR ---
Subjective Remarks Follow-up for abdominal pain, CVA tenderness, fevers and hematuria. Patient continued to spike fevers. She states she continues to have abdominal pain and left flank pain. Patient also continues her hematuria described as dark red. She stated there is no clots. Denied any nausea vomiting. Objective Vitals Vital Signs Date Time Temp Pulse Resp B/P Pulse Ox O2 Delivery O2 Flow Rate FiO2 12/16/16 11:50 97.9 74 20 111/67 100 12/16/16 07:50 96.1 81 20 111/78 99 12/16/16 05:37 99.2 81 16 107/69 100 12/16/16 02:20 17 12/16/16 02:00 101.4 12/16/16 01:30 100.7 76 16 100/56 98 12/15/16 21:49 101.0 82 16 108/73 100 12/15/16 18:34 96.8 12/15/16 15:37 101.4 90 20 115/70 99 I/O 12/15/16 12/15/16 12/15/16 12/16/16 12/16/16 12/16/16 07:00 15:00 23:00 07:00 15:00 23:00 Intake Total 1470 ml 2341 ml 1360 ml 1280 ml Output Total 775 ml 600 ml 1000 ml Balance 695 ml 2341 ml 760 ml 280 ml Intake Oral 120 ml 1320 ml 460 ml 480 ml IV Total 1350 ml 1021 ml 900 ml 800 ml Output Urine Total 775 ml 600 ml 1000 ml # Voids 5 1 # Bowel Movements 0 0 Result Diagram: 12/16/16 0555 12/16/16 0555 Objective Remarks GENERAL: in NAD who was drenched in sweat CARDIOVASCULAR: Regular rate and rhythm without murmurs, gallops, or rubs. RESPIRATORY: Breath sounds equal bilaterally. No accessory muscle use. GASTROINTESTINAL: Abdomen soft, tenderness to palpation in the lower abdominal area and left CVA tenderness. Negative for any peritoneal signs. Normoactive bowel sounds. MUSCULOSKELETAL: No cyanosis, or edema. Medications and IVs Current Medications Sodium Chloride (NS 1000 ml Inj) 1,000 ml @ 999 mls/hr BOLUS ONCE IV Last administered on 12/14/16t 15:53; Start 12/14/16 at 15:15; Stop 12/14/16 at 16:15 ; Status DC Acetaminophen 1000 mg 1,000 mg ONCE ONCE PO Last administered on 12/14/16 15: 54; Start 12/14/16 at 15:30; Stop 12/14/16 at 15:31; Status DC Ciprofloxacin/ Dextrose 200 ml @ 200 mls/hr ONCE ONCE IV Last administered on 12/14/16 16:29; Start 12/14/16 at 16:30; Stop 12/14/16 at 17:29; Status DC Sodium Chloride (NS 1000 ml Inj) 1,000 ml @ 125 mls/hr Q8H IV Last administered on 12/16/16 09:36; Start 12/14/16 at 17:36 Sodium Chloride (NS Flush) 2 ml UNSCH PRN IV FLUSH FLUSH AFTER USING IV ACCESS ; Start 12/14/16 at 17:45 Sodium Chloride (NS Flush) 2 ml BID IV FLUSH Last administered on 12/16/16 09: 32; Start 12/14/16 at 21:00 Ondansetron HCl (Zofran Inj) 4 mg Q6H PRN IVP NAUSEA OR VOMITING; Start at 17:45 Bisacodyl (Dulcolax Supp) 10 mg DAILY PRN RECTAL CONSTIPATION Last administered on 12/15/16 10:22; Start 12/14/16 at 17:45 Acetaminophen (Tylenol) 650 mg Q6H PRN PO headache/fever/pain1-2 Last administered on 12/16/16 02:10; Start 12/14/16 at 17:45 Morphine Sulfate (Morphine Inj) 2 mg Q3H PRN IV BREAKTHROUGH PAIN Last administered on 12/16/16 09:35; Start 12/14/16 at 17:45 Naloxone HCl 0.4 mg 0.4 mg UNSCH PRN IV SEE LABEL COMMENTS; Start 12/14/16 at 17:45 Ceftriaxone Sodium/Sodium Chloride (Rocephin Inj/NS Inj) 100 ml @ 200 mls/hr Q24H IV Last administered on 12/14/16 18:18; Start 12/14/16 at 18:00; Stop at 16:28; Status DC Acetaminophen/ Hydrocodone Bitart (Hycet 325-7.5 Mg Liq) 15 ml Q6H PRN PO pain scale 3-10 Last administered on 12/16/16 12:11; Start 12/14/16 at 17:45 Docusate Sodium (Colace) 100 mg BID PO Last administered on 12/16/16 09:31; Start 12/15/16 at 09:45 Pantoprazole Sodium 40 mg 40 mg Q12HR IV PUSH Last administered on 12/16/16 09 :31; Start 12/15/16 at 15:00 Ceftriaxone Sodium 2000 mg/ Sodium Chloride 100 ml @ 200 mls/hr Q24H IV Last administered on 12/15/16 18:34; Start 12/15/16 at 18:00 Sodium Chloride (NS 1000 ml Inj) 1,000 ml @ 999 mls/hr BOLUS ONCE IV ; Start 12/15/16 at 16:45; Stop 12/15/16 at 17:45; Status DC Iohexol (Omnipaque 350 Inj) 70 ml STK-MED ONCE IV Last administered on 18:25; Start 12/15/16 at 18:25; Stop 12/15/16 at 18:26; Status DC Polyethylene Glycol (Miralax) 17 gm DAILY PO Last administered on 12/16/16 12: 11; Start 12/16/16 at 11:15 Potassium Chloride (KCl) 30 meq ONCE ONCE PO Last administered on 12/16/16 12 :11; Start 12/16/16 at 12:00; Stop 12/16/16 at 12:01; Status DC A/P Problem List: (1) Severe sepsis ICD Code: A41.9 Status: Acute (2) Pyelonephritis ICD Code: N12 Status: Acute (3) Dysphagia ICD Code: R13.10 Status: Acute Assessment and Plan 31 y/o female with a hx of esophageal strictures and multiple abdominal surgeries as a baby (unsure what kind). Over the last week she has had trouble swallowing food and liquids. Cold water she can tolerate cause it feels good. Two days ago she began to have abdominal pain across her lower abdomen. Sepsis: Temp 102.8, HR 108, related to UTI -UA shows Large occult blood, mod leukocyte esterase. Urine culture shows Escherichia coli sensitive to Rocephin. -Blood cultures are negative so far X2 days. -Cipro given in ED, but was switched to Rocephin. -Continue with IVF Ns@125ml/hr. -Patient continues to have fever. So CT scan of the abdomen/pelvis was done which showed mild left hydronephrosis with urethral dilatation with mild obstructive uropathy. -Concerns that the obstructive uropathy due to a possible stone is causing patient to have persistent fevers and pain so will consult Urologist. Abdominal pain/Left flank pain. -Ultrasound abdomen was negative. CT of abdomen and pelvis showed mild left hydronephrosis with urethral dilatation with mild obstructive uropathy. -See treatment as above. Urinary tract infection, E Coli -Patient does continue to have fevers questionable pyelonephrosis. -continue Rocephin 2 g IV. Sensitivity showed that Escherichia coli is sensitive to Rocephin. Macrohematuria -Most likely secondary to kidney stones. -Patient continues to have hematuria. See treatment as above. Urologist consulted. Anemia -Most likely secondary to hematuria. -Hemoglobin continues to decrease in right now is at 7.3. -Since patient continues to have active hematuria with decrease in hemoglobin will transfuse with packed red blood cells. We will get a post transfusion hemoglobin. Dysphagia, chronic, but worse the last week -Barium Swallow shows diffuse narrowing of the hypopharynx extending down to the upper esophageal sphincter possibly due to submucosal edema in the exact etiology is not certain not present on the study from 2012. There is also mild narrowing of the upper esophagus at the level of the aortic arch without a definite stricture at this site. -ENT signed off. -GI schedule EGD +/- for tomorrow. Will hold off on procedure until patient clinically does better. DVT prophylaxis: SCDs Discharge Planning Patient continues to spike fevers and have pain. She will continue to require hospitalization until fever resolves and pain improves. Problem Qualifiers (1) Dysphagia: Qualified Code: R13.10 - Dysphagia, unspecified type Kimberley Early MD Dec 16, 2016 13:46
--- NOTE | 2016-12-16 19:17 | PD.CONS ---
HPI Service Urology Consult Requested By Reason for Consult Ab pain, UTI, Hematuria Primary Care Physician No Primary Care Physician Diagnosis: (1) Severe sepsis ICD Code: A41.9 (2) Pyelonephritis ICD Code: N12 (3) Dysphagia ICD Code: R13.10 History of Present Illness 31yo female admitted for concern for pyelonephritis and abdominal pain seen in consultation for the persistent UTI with hematuria and abdominal/left flank pain. Patient reports her pain began several days ago, severe and located in the left abdomen radiating to the right upper quadrant, with fevers, no N/V. She also reports blood in her urine. She has never had blood in her urine previously. No history of kidney stones. No issues voiding, no lower urinary tract symptoms. Of note she has had multiple abdominal surgeries in the past. Review of Systems ROS Limitations: Clinical Condition Constitutional: COMPLAINS OF: Fever Endocrine: DENIES: Polyuria Eyes: DENIES: Diplopia Ears, nose, mouth, throat: DENIES: Hearing loss Respiratory: DENIES: Cough Cardiovascular: DENIES: Chest pain Gastrointestinal: COMPLAINS OF: Abdominal pain, DENIES: Nausea, Vomiting Genitourinary: COMPLAINS OF: Hematuria Musculoskeletal: COMPLAINS OF: Back pain Integumentary: DENIES: Rash Hematologic/lymphatic: DENIES: Bruising Immunologic/allergic: DENIES: Eczema Neurologic: DENIES: Abnormal gait, Headache Psychiatric: DENIES: Anxiety Except as stated in HPI: all other systems reviewed are Neg Past Family Social History Past Medical History Esophageal strictures Oneal's Esophagus. Stomach injury requiring bypass surgery as child Hx foreign body in esophagus Hx Ileitis/Jejunitis Hx pancytopenia GERD Past Surgical History C Section Hysterectomy Multiple EGD's with dilatation Gastric bypass surgery secondary to stomach injury as child Reported Medications Reported Meds & Active Scripts Active No Active Prescriptions or Reported Medications Allergies: Coded Allergies: Amoxicillin (Verified Allergy, Severe, Swelling, 12/14/16) Imitrex (Verified Allergy, Severe, DIZZY, 12/14/16) MIGRAINES Penicillin (Verified Allergy, Severe, HOT FLASHES, H/A, 12/14/16) ALL "CILLINS" Uncoded Allergies: ALL CILLINS (Allergy, Severe, 12/14/12) Active Ordered Medications Current Medications Medications (Trade) Dose Ordered Sig/Cara Route Start Time Stop Time Status Last Admin (NS 1000 ml Inj) 1,000 ml @ 125 mls/hr Q8H IV 12/14/16 17:36 12/16/16 09:36 (NS Flush) 2 ml UNSCH PRN IV FLUSH 12/14/16 17:45 (NS Flush) 2 ml BID IV FLUSH 12/14/16 21:00 12/16/16 09:32 (Zofran Inj) 4 mg Q6H PRN IVP 12/14/16 17:45 (Dulcolax Supp) 10 mg DAILY PRN RECTAL 12/14/16 17:45 12/15/16 10:22 (Tylenol) 650 mg Q6H PRN PO 12/14/16 17:45 12/16/16 17:35 (Morphine Inj) 2 mg Q3H PRN IV 12/14/16 17:45 12/16/16 09:35 (Narcan Inj) 0.4 mg UNSCH PRN IV 12/14/16 17:45 (Hycet 325-7.5 Mg Liq) 15 ml Q6H PRN PO 12/14/16 17:45 12/16/16 17:36 (Colace) 100 mg BID PO 12/15/16 09:45 12/16/16 09:31 Pantoprazole Sodium 40 mg 40 mg Q12HR IV PUSH 12/15/16 15:00 12/16/16 09:31 (Rocephin Inj/NS Inj) 100 ml @ 200 mls/hr Q24H IV 12/15/16 18:00 12/15/16 18:34 (Miralax) 17 gm DAILY PO 12/16/16 11:15 12/16/16 12:11 Family History Family history reviewed and noncontributory to present illness Social History Tobacco use: Denies Alcohol use: Denies Marijuana daily in AM Physical Exam Vital Signs Date Time Temp Pulse Resp B/P Pulse Ox O2 Delivery O2 Flow Rate FiO2 12/16/16 17:10 99.5 67 20 102/64 100 12/16/16 15:50 98.3 82 20 111/69 100 12/16/16 11:50 97.9 74 20 111/67 100 12/16/16 07:50 96.1 81 20 111/78 99 12/16/16 05:37 99.2 81 16 107/69 100 12/16/16 02:20 17 12/16/16 02:00 101.4 12/16/16 01:30 100.7 76 16 100/56 98 12/15/16 21:49 101.0 82 16 108/73 100 Physical Exam GENERAL: This is a well-nourished, well-developed patient, in no apparent distress. SKIN: No rashes, ecchymoses or lesions. Cool and dry. HEAD: Atraumatic. Normocephalic. EYES: Extraocular motions intact. No scleral icterus. No injection or drainage. ENT: Nose without bleeding, purulent drainage. Airway patent. NECK: Trachea midline. No JVD or lymphadenopathy. CARDIOVASCULAR: Normal pulses RESPIRATORY: nonlabored, equal chest rise GASTROINTESTINAL: Abdomen soft, nondistended. Left abdominal tenderness upper and lower quadrant MUSCULOSKELETAL: Extremities without clubbing, cyanosis, or edema. No joint tenderness, effusion, or edema noted. NEUROLOGICAL: Awake and alertt. Motor and sensory grossly within normal limits. Normal speech. Lab results reviewed: Yes Laboratory Tests Test 12/16/16 12/16/16 05:55 14:44 White Blood Count 4.6 Red Blood Count 1.98 Hemoglobin 7.3 Hematocrit 21.0 Mean Corpuscular Volume 106.1 Mean Corpuscular Hemoglobin 36.7 Mean Corpuscular Hemoglobin 34.6 Concent Red Cell Distribution Width 22.2 Platelet Count 93 Mean Platelet Volume 7.2 Sodium Level 143 Potassium Level 3.2 Chloride Level 111 Carbon Dioxide Level 24.3 Anion Gap 8 Blood Urea Nitrogen 2 Creatinine 0.82 Estimat Glomerular Filtration 100 Rate Random Glucose 134 Calcium Level 7.9 Blood Type B POSITIVE Crossmatch Leukocyte-Reduced Red Blood Cells Blood Bank Comment Date/Time Procedure Status Source Growth 12/14/16 19:10 Aerobic Blood Culture - Preliminary Resulted Blood Peripheral NO GROWTH IN 2 DAYS 12/14/16 19:10 Anaerobic Blood Culture - Preliminary Resulted Blood Peripheral NO GROWTH IN 2 DAYS 12/14/16 15:14 Urine Culture - Final Complete Urine Clean Catch Escherichia Coli Result Diagram: 12/16/16 0555 12/16/16 0555 Personally reviewed images: Yes Imaging Last Impressions Abdomen/Pelvis CT 12/15/16 0000 Signed Impressions: Service Date/Time: Thursday, December 15, 2016 18:01 - CONCLUSION: 1. Mild left hydronephrosis and ureteral dilatation most characteristic of a mild obstructive uropathy possibly related to recent stone passage.. Calcification in left hemipelvis is characteristic of phlebolith, unchanged from 2011. Calcification measures about 3 mm in diameter. 2. Bilateral small ovarian cysts. Ovaries are not easily from adjacent small bowel loops. Michael Umana MD Barium Swallow X-Ray 12/14/16 0000 Signed Impressions: Service Date/Time: Wednesday, December 14, 2016 15:31 - CONCLUSION: There is diffuse narrowing of the hypopharynx extending down to the upper esophageal sphincter possibly due to submucosal edema in the exact etiology is not certain not present on the study from 2012. There is also mild narrowing of the upper esophagus at the level of the aortic arch without a definite stricture at this site. Luciano Choi MD Abdomen Ultrasound 12/14/16 0000 Signed Impressions: Service Date/Time: Wednesday, December 14, 2016 18:04 - CONCLUSION: No acute abnormality demonstrated. Simple, benign appearing cyst of the left kidney incidentally noted. Marck Campbell MD Assessment and Plan Problem List: (1) Pyelonephritis ICD Code: N12 Status: Acute Assessment and Plan -CT scan images reviewed, no evidence of stones noted on current CT scan. Mild left sided hydronephrosis but no obvious obstructive process evident. -Cr within normal limits. Normal WBC -Recommend Nuclear medicine renal scan to identify/rule out any evidence of obstruction in the left collecting system -Hematuria may be secondary to her infection, no obvious abnormalities or tumors noted on prior CT scan. -Continue IV abx for Ecoli in her urine with suspected pyelonephritis -Will follow-up renal scan results. Problem Qualifiers (1) Dysphagia: Qualified Code: R13.10 - Dysphagia, unspecified type Florentin Blount MD Dec 16, 2016 19:16
[2016-12-17] VITALS (7 sets, daily range): BP systolic 102–120; BP diastolic 61–72; PULSE 51–77; RESP 16–20; TEMP 98.4–100.2; O2SAT 96–100
[2016-12-17] MEDS: ACETAMINOPHEN 325MG/HYDROcodone 7.5MG/15ML UDC PO PRN ×3 (02:25→21:48)
[2016-12-17] MEDS: cefTRIAXone INJ 2,000 MG in SODIUM CHLORIDE 0.9% INJ 100 ML IV SCH ×2 (02:45→17:10)
[2016-12-17] MEDS: SODIUM CHLOR 0.9% 1000 ML INJ 1,000 ML IV SCH ×3 (02:50→09:36)
[2016-12-17] MEDS: PANTOPRAZOLE SODIUM 40 MG VIAL IV PUSH SCH ×2 (07:43→21:38)
[2016-12-17] MEDS: MORPHINE SULFATE 4 MG/ML INJ IV PRN ×2 (07:43→16:15)
[2016-12-17] MEDS: SODIUM CHLORIDE 0.9% FLUSH 10 ML FLUSH IV FLUSH SCH ×2 (07:49→21:38)
[2016-12-17 08:55] LABS: HEMATOCRIT 29.8 % (35.0-46.0); MEAN CELL VOLUME 97.6 FL (80.0-100.0); MEAN CORPUSCULAR HEMOGLOBIN 33.9 PG (27.0-34.0); MEAN CORPUSCULAR HGB CONC 34.7 % (32.0-36.0); PLATELET COUNT 102 TH/MM3 (150-450); RED BLOOD COUNT 3.06 MIL/MM3 (4.00-5.30); RED CELL DISTRIBUTION WIDTH 26.4 % (11.6-17.2); WHITE BLOOD COUNT 4.9 TH/MM3 (4.0-11.0)
[2016-12-17 09:00] LABS: REVIEW FLAG FINAL
--- NOTE | 2016-12-17 09:01 | GIPROC ---
[facility] [address] [facility]. [facility], [id number] EGD WITH DILATION PROCEDURE REPORT EXAM DATE: 12/17/2016 PATIENT NAME: Octavia Muir MR#: [id number] BIRTHDATE: 1985 ATTENDING: Enedia Yang MD ORDER #: [id number] MANUFACTURER REPRESENTATIVE: Mónica Easley and Sara Izquierdo STATUS: inpatient INDICATIONS: The patient is a 31 yr old female here for an EGD with dilation due to dysphagia history of esophageal stricture s/p gastrectomy -jejunal esophageal anastomosis PROCEDURE PERFORMED: EGD w/ biopsy EGD w/ dilation of esophagus via guidewire MEDICATIONS: None and Per Anesthesia. TOPICAL ANESTHETIC: none CONSENT: The patient understands the risks and benefits of the procedure and understands that these risks include, but are not limited to: sedation, allergic reaction, infection, perforation and/or bleeding. Alternative means of evaluation and treatment include, among others: physical exam, x-rays, and/or surgical intervention. The patient elects to proceed with this endoscopic procedure. medical equipment was checked for proper function. Hand hygiene and appropriate measures for infection prevention was taken. After the risks, benefits and alternatives of the procedure were thoroughly explained, Informed consent was verified, confirmed and timeout was successfully executed by the treatment team. The patient was anesthetized with topical anesthesia and the Pentax [id number] endoscope was introduced through the mouth and advanced to the proximal jejunum. The instrument was slowly withdrawn as the mucosa was fully examined. Esophagitis distal esophagus-biopsy s/p total gastrectomy stricture distal esophagus jejuno/esophageal anastomosis. Dilation was performed at distal esophagus. DILATOR: SIZE(S): RESISTANCE: HEME: APPEARANCE: Dilator: Savary over guidewire Size(s): 16 COMMENT: Retroflexion was not performed ADVERSE EVENTS: There were no complications. IMPRESSIONS: 1. Esophagitis distal esophagus-biopsy s/p total gastrectomy stricture distal esophagus jejuno/esophageal anastomosis 2. Retroflexion was not performed RECOMMENDATIONS: 1. Await biopsy results. Biopsy results will not be ready for 7-10 days. If you don't hear from us in two weeks, call our office for biopsy results. 2. Anti-reflux regimen 3. Continue PPI 4. Dilatations PRN 5. Gi will sign off call us as neariaed fu office if still issues REPEAT EXAM: EGD pending biopsy results Eneida Yang MD eSigned: Eneida Yang MD 12/17/2016 9:01 AM cc: PATIENT NAME: Octavia Muir Priti MR#: [id number]
[2016-12-17 09:16] LABS: BICARBONATE 25.1 MEQ/L (21.0-32.0); POTASSIUM 3.5 MEQ/L (3.5-5.1)
[2016-12-17] MEDS ORDERED: FUROSEMIDE 40 MG/4 ML VIAL ONE (09:42)
[2016-12-17] MEDS ORDERED: PROPOFOL 200 MG/20 ML AMP IV ONE (09:48)
--- NOTE | 2016-12-17 10:27 | RADRPT ---
EXAM DATE/TIME: 12/17/2016 08:25 [place] COMPARISON: CT ABDOMEN & PELVIS W CONTRAST, December 15, 2016, 18:01. INDICATIONS : Left flank pain and hematuria. DOSE: 21.3 mCi Tc99m DTPA IV MEDICATION: 40 mg Lasix IV MEDICAL HISTORY : Oneal's esophagus. SURGICAL HISTORY : section. Gastric bypass. Hysterectomy. ENCOUNTER: Initial ACUITY: 1 day PAIN SCALE: 3/10 LOCATION: Left flank TECHNIQUE: Dynamic images were performed in the posterior projection for a total of 28 minutes. FINDINGS: FLOW: There is symmetric arrival of bolus to both kidneys. There is homogeneous perfusion to both kidneys. EXCRETION: There is normal renal cortical transit time and normal rate of washout from the parenchyma of the rig ht kidney with approximate 75% emptying occurring post Lasix. The left kidney demonstrates sluggish d rainage prior to administration of Lasix, however post-Lasix approximately 60 to 70% emptying occurs. CONCLUSION: The right kidney is intact and there is sluggish drainage on the left without any significant obstruc tion. Luciano Choi MD on December 17, 2016 at 10:22 Board Certified Radiologist. This report was verified electronically.
[2016-12-17] MEDS: DOCUSATE SODIUM 100 MG CAP PO SCH ×2 (11:23→21:37)
[2016-12-17] MEDS ORDERED: LACTULOSE SYRUP 20 GM/30 ML CUP PO ONE (13:30)
--- NOTE | 2016-12-17 13:45 | HHI.PR ---
Subjective Remarks Patient is status post EGD with esophageal dilation. Patient reports left lower quadrant abdominal discomfort. She is very concerned about not having a bowel movement yet. She reports that nothing has worked so far. She denies any nausea or vomiting. Objective Vitals Vital Signs Date Time Temp Pulse Resp B/P Pulse Ox O2 Delivery O2 Flow Rate FiO2 12/17/16 11:50 99.3 52 20 120/66 100 12/17/16 09:08 54 18 114/66 100 12/17/16 09:04 53 18 109/67 99 12/17/16 08:56 98.3 50 18 106/59 99 12/17/16 08:25 98.4 77 16 113/71 97 12/17/16 07:50 98.5 57 20 108/68 100 12/17/16 05:01 98.4 57 16 106/70 98 12/17/16 02:20 100.2 57 17 118/68 99 12/16/16 23:30 99.9 66 17 112/63 100 12/16/16 23:12 99.2 77 16 108/58 99 12/16/16 20:14 99.8 80 16 106/66 100 12/16/16 17:10 99.5 67 20 102/64 100 12/16/16 15:50 98.3 82 20 111/69 100 I/O 12/16/16 12/16/16 12/16/16 12/17/16 12/17/16 12/17/16 07:00 15:00 23:00 07:00 15:00 23:00 Intake Total 1280 ml 3154 ml 500 ml 900 ml 100 ml Output Total 1000 ml 1900 ml 1000 ml 450 ml Balance 280 ml 1254 ml -500 ml 450 ml 100 ml Intake Oral 480 ml 780 ml 500 ml 0 ml IV Total 800 ml 2374 ml 600 ml 100 ml Packed Cells 300 ml Output Urine Total 1000 ml 1900 ml 1000 ml 450 ml # Bowel Movements 0 0 0 Result Diagram: 12/17/1670412/17/16704 Imaging Last Impressions Renal Scan w/Medication NM 12/17/16 0000 Signed Impressions: Service Date/Time: November 08:25 - CONCLUSION: The right kidney is intact and there is sluggish drainage on the left without any significant obstruction. Luciano Choi MD Abdomen/Pelvis CT 12/15/16 0000 Signed Impressions: Service Date/Time: Thursday, December 15, 2016 18:01 - CONCLUSION: 1. Mild left hydronephrosis and ureteral dilatation most characteristic of a mild obstructive uropathy possibly related to recent stone passage.. Calcification in left hemipelvis is characteristic of phlebolith, unchanged from 2011. Calcification measures about 3 mm in diameter. 2. Bilateral small ovarian cysts. Ovaries are not easily from adjacent small bowel loops. Michael Umana MD Barium Swallow X-Ray 12/14/16 0000 Signed Impressions: Service Date/Time: Wednesday, December 14, 2016 15:31 - CONCLUSION: There is diffuse narrowing of the hypopharynx extending down to the upper esophageal sphincter possibly due to submucosal edema in the exact etiology is not certain not present on the study from 2012. There is also mild narrowing of the upper esophagus at the level of the aortic arch without a definite stricture at this site. Luciano Choi MD Abdomen Ultrasound 12/14/16 0000 Signed Impressions: Service Date/Time: Wednesday, December 14, 2016 18:04 - CONCLUSION: No acute abnormality demonstrated. Simple, benign appearing cyst of the left kidney incidentally noted. Marck Campbell MD Objective Remarks GENERAL: Patient is in no acute distress. CARDIOVASCULAR: Normal rate and regular rhythm without murmurs, gallops, or rubs. RESPIRATORY: Good respiratory efforts. Breath sounds equal and clear to auscultation bilaterally. GASTROINTESTINAL: Abdomen soft, non-distended. She is tender to palpation mostly on the left lower quadrant. No palpable mass. Normal active bowel sounds MUSCULOSKELETAL: Extremities without cyanosis, or edema. NEURO: Alert & Oriented x4 to person, place, time, situation. Moves all ext x4 PSYCH: Appropriate mood and affect. A/P Problem List: (1) Severe sepsis ICD Code: A41.9 Status: Acute (2) Pyelonephritis ICD Code: N12 Status: Acute (3) Dysphagia ICD Code: R13.10 Status: Acute Assessment and Plan 31 y/o female with: Sepsis: Temp 102.8, HR 108, related to UTI. Sepsis resolving. -UA shows Large occult blood, mod leukocyte esterase. Urine culture shows Escherichia coli sensitive to Rocephin. -Blood cultures are negative x3 days. -Cipro given in ED, but was switched to Rocephin. -Discontinue IV fluid Abdominal pain/Left flank pain. -Ultrasound abdomen was negative. CT of abdomen and pelvis showed mild left hydronephrosis with urethral dilatation with mild obstructive uropathy. -See treatment as above. Urinary tract infection, E Coli -continue Rocephin 2 g IV. Sensitivity showed that Escherichia coli is sensitive to Rocephin. - Can transition to oral antibiotics on discharge tomorrow per the sensitivity profile. Macrohematuria -Most likely secondary to kidney stones versus UTI. Resolving. -Urology was consulted, a renal scan shows sluggish drainage on the left but no obstruction. Anemia -Most likely secondary to hematuria. -Status post transfusion. H&H stable. Continue to monitor Dysphagia, chronic, but worse the last week -Barium Swallow shows diffuse narrowing of the hypopharynx extending down to the upper esophageal sphincter possibly due to submucosal edema in the exact etiology is not certain not present on the study from 2012. There is also mild narrowing of the upper esophagus at the level of the aortic arch without a definite stricture at this site. -ENT signed off. -Patient underwent EGD and esophageal dilation by GI who advised continuing PPI. GI signed off. Constipation: We will try lactulose. She refused Miralax today. Continue Colace DVT prophylaxis: SCDs Discharge Planning If patient remains afebrile tomorrow and stable tomorrow, she can be discharged home. Problem Qualifiers (1) Dysphagia: Qualified Code: R13.10 - Dysphagia, unspecified type Cr Lucas MD Dec 17, 2016 13:45
[2016-12-17] MEDS: POLYETHYLENE GLYCOL 17 GM PKG PO SCH (17:19)
--- NOTE | 2016-12-17 17:43 | HHI.PR ---
Subjective Patient symptoms today Renal scan with no evidence of obstruction. No indication for ureteral stent or decompression of the left collecting system. Mild hydro may be physiologic or related to recent infection. No intervention indicated at this time Objective Vital Signs Vital Signs Date Time Temp Pulse Resp B/P Pulse Ox O2 Delivery O2 Flow Rate FiO2 12/17/16 11:50 99.3 52 20 120/66 100 12/17/16 09:08 54 18 114/66 100 12/17/16 09:04 53 18 109/67 99 12/17/16 08:56 98.3 50 18 106/59 99 12/17/16 08:25 98.4 77 16 113/71 97 12/17/16 07:50 98.5 57 20 108/68 100 12/17/16 05:01 98.4 57 16 106/70 98 12/17/16 02:20 100.2 57 17 118/68 99 12/16/16 23:30 99.9 66 17 112/63 100 12/16/16 23:12 99.2 77 16 108/58 99 12/16/16 20:14 99.8 80 16 106/66 100 Intake & Output 12/17/16 12/17/16 07:00 19:00 Intake Total 1400 ml 100 ml Output Total 1450 ml Balance -50 ml 100 ml Intake Oral 500 ml IV Total 600 ml 100 ml Packed Cells 300 ml Output Urine Total 1450 ml # Bowel Movements 0 Result Diagram: 12/17/16 0705 12/17/16 0705 Imaging Last 24 hours Impressions Renal Scan w/Medication NM 12/17/16 0000 Signed Impressions: Service Date/Time: November 08:25 - CONCLUSION: The right kidney is intact and there is sluggish drainage on the left without any significant obstruction. Luciano Choi MD Medications and IVs Current Medications Medications (Trade) Dose Ordered Sig/Cara Route Start Time Stop Time Status Last Admin (NS Flush) 2 ml UNSCH PRN IV FLUSH 12/14/16 17:45 (NS Flush) 2 ml BID IV FLUSH 12/14/16 21:00 12/16/16 20:44 (Zofran Inj) 4 mg Q6H PRN IVP 12/14/16 17:45 (Dulcolax Supp) 10 mg DAILY PRN RECTAL 12/14/16 17:45 12/15/16 10:22 (Tylenol) 650 mg Q6H PRN PO 12/14/16 17:45 12/16/16 17:35 (Morphine Inj) 2 mg Q3H PRN IV 12/14/16 17:45 12/17/16 16:15 (Narcan Inj) 0.4 mg UNSCH PRN IV 12/14/16 17:45 (Hycet 325-7.5 Mg Liq) 15 ml Q6H PRN PO 12/14/16 17:45 12/17/16 11:20 (Colace) 100 mg BID PO 12/15/16 09:45 12/17/16 11:23 Pantoprazole Sodium 40 mg 40 mg Q12HR IV PUSH 12/15/16 15:00 12/17/16 07:43 (Rocephin Inj/NS Inj) 100 ml @ 200 mls/hr Q24H IV 12/15/16 18:00 12/17/16 17:10 (Miralax) 17 gm DAILY PO 12/16/16 11:15 12/17/16 17:19 Assessment and Plan Problem List: (1) Pyelonephritis ICD Code: N12 Status: Acute Assessment and Plan -No intervention indicated at this time -Patient may follow-up with [facility] after discharge as needed Florentin Blount MD Dec 17, 2016 17:43
[2016-12-18 00:27] VITALS: BP 121/69; PULSE 51; RESP 16; TEMP 97.5; O2SAT 100
[2016-12-18] MEDS: ACETAMINOPHEN 325MG/HYDROcodone 7.5MG/15ML UDC PO PRN ×2 (05:28→12:55)
[2016-12-18 06:08] VITALS: BP 105/63; PULSE 54; RESP 16; TEMP 97.9; O2SAT 100
[2016-12-18 07:50] LABS: HEMATOCRIT 28.2 % (35.0-46.0); MEAN CORPUSCULAR HEMOGLOBIN 33.3 PG (27.0-34.0); MEAN CORPUSCULAR HGB CONC 34.3 % (32.0-36.0); PLATELET COUNT 140 TH/MM3 (150-450); RED BLOOD COUNT 2.91 MIL/MM3 (4.00-5.30); RED CELL DISTRIBUTION WIDTH 25.8 % (11.6-17.2); WHITE BLOOD COUNT 4.9 TH/MM3 (4.0-11.0)
[2016-12-18 07:56] LABS: REVIEW FLAG FINAL
[2016-12-18 08:09] LABS: BICARBONATE 27.6 MEQ/L (21.0-32.0)
[2016-12-18 09:00] VITALS: BP 107/62; PULSE 66; RESP 16; TEMP 97.6; O2SAT 100
--- NOTE | 2016-12-18 09:41 | HHI.GIFU ---
Subjective Remarks Resting in bed. Swallowing has improved, but she reports that she still has to eat slowly and chew carefully. She c/o that she is still having hematuria and is hesitant to go home while she is still having this. Objective Vitals I&O Vital Signs Date Time Temp Pulse Resp B/P Pulse Ox O2 Delivery O2 Flow Rate FiO2 12/18/16 09:00 97.6 66 16 107/62 100 12/18/16 06:08 97.9 54 16 105/63 100 12/18/16 00:27 97.5 51 16 121/69 100 12/17/16 21:52 99.2 74 16 109/72 96 12/17/16 15:50 99.6 51 20 102/61 100 12/17/16 11:50 99.3 52 20 120/66 100 I/O 12/17/16 12/17/16 12/17/16 12/18/16 12/18/16 12/18/16 07:00 15:00 23:00 07:00 15:00 23:00 Intake Total 900 ml 100 ml 360 ml 450 ml Output Total 450 ml 1100 ml 500 ml 600 ml Balance 450 ml -1000 ml -140 ml -150 ml Intake Oral 0 ml 0 ml 360 ml 450 ml IV Total 600 ml 100 ml Packed Cells 300 ml Output Urine Total 450 ml 1100 ml 500 ml 600 ml # Bowel Movements 0 0 0 Laboratory Laboratory Tests Test 12/18/16 06:10 White Blood Count 4.9 Red Blood Count 2.91 Hemoglobin 9.7 Hematocrit 28.2 Mean Corpuscular Volume 97.0 Mean Corpuscular Hemoglobin 33.3 Mean Corpuscular Hemoglobin 34.3 Concent Red Cell Distribution Width 25.8 Platelet Count 140 Mean Platelet Volume 7.9 Sodium Level 144 Potassium Level 3.0 Chloride Level 109 Carbon Dioxide Level 27.6 Anion Gap 7 Blood Urea Nitrogen 4 Creatinine 0.78 Estimat Glomerular Filtration 106 Rate Random Glucose 105 Calcium Level 8.5 Date/Time Procedure Status Source Growth 12/14/16 19:10 Aerobic Blood Culture - Preliminary Resulted Blood Peripheral NO GROWTH IN 3 DAYS 12/14/16 19:10 Anaerobic Blood Culture - Preliminary Resulted Blood Peripheral NO GROWTH IN 3 DAYS 12/14/16 15:14 Urine Culture - Final Complete Urine Clean Catch Escherichia Coli Imaging Last Impressions Renal Scan w/Medication NM 12/17/16 0000 Signed Impressions: Service Date/Time: November 08:25 - CONCLUSION: The right kidney is intact and there is sluggish drainage on the left without any significant obstruction. Luciano Choi MD Abdomen/Pelvis CT 12/15/16 0000 Signed Impressions: Service Date/Time: Thursday, December 15, 2016 18:01 - CONCLUSION: 1. Mild left hydronephrosis and ureteral dilatation most characteristic of a mild obstructive uropathy possibly related to recent stone passage.. Calcification in left hemipelvis is characteristic of phlebolith, unchanged from 2010. Calcification measures about 3 mm in diameter. 2. Bilateral small ovarian cysts. Ovaries are not easily from adjacent small bowel loops. Michael Umana MD Barium Swallow X-Ray 12/14/16 0000 Signed Impressions: Service Date/Time: Wednesday, December 14, 2016 15:31 - CONCLUSION: There is diffuse narrowing of the hypopharynx extending down to the upper esophageal sphincter possibly due to submucosal edema in the exact etiology is not certain not present on the study from 2012. There is also mild narrowing of the upper esophagus at the level of the aortic arch without a definite stricture at this site. Luciano Choi MD Abdomen Ultrasound 12/14/16 0000 Signed Impressions: Service Date/Time: Wednesday, December 14, 2016 18:04 - CONCLUSION: No acute abnormality demonstrated. Simple, benign appearing cyst of the left kidney incidentally noted. Marck Campbell MD Physical Exam HEENT: Normocephalic; atraumatic; no jaundice. CHEST: CTA CARDIAC: RRR ABDOMEN: Soft, nondistended, nontender; no hepatosplenomegaly; bowel sounds are present in all four quadrants. EXTREMITIES: No clubbing, cyanosis, or edema. SKIN: Normal; no rash; no jaundice. [employer]: No focal deficits; alert and oriented times three. Assessment and Plan Plan ASSESSMENT: - Esophageal stricture, dysphagia. 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 She does not know the specifics to the injury she sustained as a baby, but reports she had multiple surgeries to correct this. She is well known to our service and has required multiple EGD with dilatations. Last EGD with dilatation was (12/30/2015) with Dr. Pineda and this revealed a long stricture in the lower third of the esophagus, s/p dilation using a 14 mm savary dilator over guidewire, slightly irregular Z line, s/p biopsy to r/o zavala' s esophagus, S/P gastrectomy and esophago-jejunostomy with normal small bowel, retroflexed views revealed no abnormalities. It was recommended that she have a repeat EGD with balloon dilatation in 3 months. Pathology revealed squamocolumnar mucosa with intestinal metaplasia consistent with Zavala's esophagus and moderate chronic inflammation including numerous eosinophils consistent with reflux. Negative for dysplasia or malignancy. She had a lapse in insurance and was not able to follow up. She came to the ER for a 2-3 day hx of dysphagia with solids getting caught in her upper esophagus, fever/chills/flank pain/hematuria and was admitted for pyelonephritis and dysphagia. S/P Barium Swallow (12/14/16)----> There is diffuse narrowing of the hypopharynx extending down to the upper esophageal sphincter possibly due to submucosal edema in the exact etiology is not certain not present on the study from 2012. There is also mild narrowing of the upper esophagus at the level of the aortic arch without a definite stricture at this site. GI and ENT was consulted. S/P evaluation by Dr. Rivers, who has deferred further evaluation and treatment to GI. S/P EGD with dilatation (12/17/16)---> 1. Esophagitis distal esophagus-biopsy, s/p total gastrectomy, stricture distal esophagus, jejuno/esophageal anastomosis 2. Retroflexion was not performed. Swallowing has improved. Still has to be careful, but is able to tolerate diet. - GERD/Zavala's Esophagus. Pt reports daily symptoms, but states she has been off of PPIs and does not take any medications for this at home. - Abdominal pain. Abdomen/Pelvis CT (12/15/16)----> 1. Mild left hydronephrosis and ureteral dilatation most characteristic of a mild obstructive uropathy possibly related to recent stone passage.. Calcification in left hemipelvis is characteristic of phlebolith, unchanged from 2011. Calcification measures about 3 mm in diameter. 2. Bilateral small ovarian cysts. Ovaries are not easily from adjacent small bowel loops. - Constipation. Miralax + BM - Pyelonephritis/UTI. Ceftriaxone. Per primary - Sepsis with Temp/Tachycardia. Ceftriaxone. - Anemia. S/P 2 units PRBC. 9.7/28.2. PLAN: - Soft diet - Await pathology - Cont. PPI - Cont. Miralax - Okay to d/c home from GI standpoint - FU LYUDMILA 2 weeks - - Pt seen and examined by Dr. Yang and myself and this note is written on her behalf Argenis Brar Dec 18, 2016 09:41
[2016-12-18] MEDS: PANTOPRAZOLE SODIUM 40 MG VIAL IV PUSH SCH (10:00)
[2016-12-18] MEDS: DOCUSATE SODIUM 100 MG CAP PO SCH (10:00)
[2016-12-18] MEDS: SODIUM CHLORIDE 0.9% FLUSH 10 ML FLUSH IV FLUSH SCH (10:02)
[2016-12-18] MEDS: POLYETHYLENE GLYCOL 17 GM PKG PO SCH (10:08)
--- NOTE | 2016-12-18 11:15 | HHI.PR ---
Objective Vitals Vital Signs Date Time Temp Pulse Resp B/P Pulse Ox O2 Delivery O2 Flow Rate FiO2 12/18/16 09:00 97.6 66 16 107/62 100 12/18/16 06:08 97.9 54 16 105/63 100 12/18/16 00:27 97.5 51 16 121/69 100 12/17/16 21:52 99.2 74 16 109/72 96 12/17/16 15:50 99.6 51 20 102/61 100 12/17/16 11:50 99.3 52 20 120/66 100 I/O 12/17/16 12/17/16 12/17/16 12/18/16 12/18/16 12/18/16 07:00 15:00 23:00 07:00 15:00 23:00 Intake Total 900 ml 100 ml 360 ml 450 ml Output Total 450 ml 1100 ml 500 ml 600 ml Balance 450 ml -1000 ml -140 ml -150 ml Intake Oral 0 ml 0 ml 360 ml 450 ml IV Total 600 ml 100 ml Packed Cells 300 ml Output Urine Total 450 ml 1100 ml 500 ml 600 ml # Bowel Movements 0 0 0 Result Diagram: 12/18/16 0610 12/18/16 0610 Guy Hameed MD Dec 18, 2016 11:15 (1) Severe sepsis ICD Code: A41.9 Status: Acute (2) Pyelonephritis ICD Code: N12 Status: Acute (3) Dysphagia ICD Code: R13.10 Status: Acute Assessment and Plan 31 y/o female with: Sepsis: Temp 102.8, HR 108, related to UTI. Sepsis resolving. -UA shows Large occult blood, mod leukocyte esterase. Urine culture shows Escherichia coli sensitive to Rocephin. -Blood cultures are negative x3 days. -Cipro given in ED, but was switched to Rocephin. -Discontinue IV fluid Abdominal pain/Left flank pain. -Ultrasound abdomen was negative. CT of abdomen and pelvis showed mild left hydronephrosis with urethral dilatation with mild obstructive uropathy. -See treatment as above. Urinary tract infection, E Coli -continue Rocephin 2 g IV. Sensitivity showed that Escherichia coli is sensitive to Rocephin. - Can transition to oral antibiotics on discharge tomorrow per the sensitivity profile. Macrohematuria -Most likely secondary to kidney stones versus UTI. Resolving. -Urology was consulted, a renal scan shows sluggish drainage on the left but no obstruction. Anemia -Most likely secondary to hematuria. -Status post transfusion. H&H stable. Continue to monitor Dysphagia, chronic, but worse the last week -Barium Swallow shows diffuse narrowing of the hypopharynx extending down to the upper esophageal sphincter possibly due to submucosal edema in the exact etiology is not certain not present on the study from 2012. There is also mild narrowing of the upper esophagus at the level of the aortic arch without a definite stricture at this site. -ENT signed off. -Patient underwent EGD and esophageal dilation by GI who advised continuing PPI. GI signed off. Constipation: We will try lactulose. She refused Miralax today. Continue Colace DVT prophylaxis: SCDs Problem Qualifiers (1) Dysphagia: Qualified Code: R13.10 - Dysphagia, unspecified type Guy Hameed MD Dec 18, 2016 11:15
--- NOTE | 2016-12-18 11:45 | HHI.PR ---
Objective Vitals Vital Signs Date Time Temp Pulse Resp B/P Pulse Ox O2 Delivery O2 Flow Rate FiO2 12/18/16 09:00 97.6 66 16 107/62 100 12/18/16 06:08 97.9 54 16 105/63 100 12/18/16 00:27 97.5 51 16 121/69 100 12/17/16 21:52 99.2 74 16 109/72 96 12/17/16 15:50 99.6 51 20 102/61 100 12/17/16 11:50 99.3 52 20 120/66 100 I/O 12/17/16 12/17/16 12/17/16 12/18/16 12/18/16 12/18/16 07:00 15:00 23:00 07:00 15:00 23:00 Intake Total 900 ml 100 ml 360 ml 450 ml Output Total 450 ml 1100 ml 500 ml 600 ml Balance 450 ml -1000 ml -140 ml -150 ml Intake Oral 0 ml 0 ml 360 ml 450 ml IV Total 600 ml 100 ml Packed Cells 300 ml Output Urine Total 450 ml 1100 ml 500 ml 600 ml # Bowel Movements 0 0 0 Result Diagram: 12/18/16 0610 12/18/16 0610 Imaging Guy Hameed MD Dec 18, 2016 11:44 Last Impressions Renal Scan w/Medication NM 12/17/16 0000 Signed Impressions: Service Date/Time: November 08:25 - CONCLUSION: The right kidney is intact and there is sluggish drainage on the left without any significant obstruction. Luciano Choi MD Abdomen/Pelvis CT 12/15/16 0000 Signed Impressions: Service Date/Time: Thursday, December 15, 2016 18:01 - CONCLUSION: 1. Mild left hydronephrosis and ureteral dilatation most characteristic of a mild obstructive uropathy possibly related to recent stone passage.. Calcification in left hemipelvis is characteristic of phlebolith, unchanged from 2010. Calcification measures about 3 mm in diameter. 2. Bilateral small ovarian cysts. Ovaries are not easily from adjacent small bowel loops. Michael Umana MD Barium Swallow X-Ray 12/14/16 0000 Signed Impressions: Service Date/Time: Wednesday, December 14, 2016 15:31 - CONCLUSION: There is diffuse narrowing of the hypopharynx extending down to the upper esophageal sphincter possibly due to submucosal edema in the exact etiology is not certain not present on the study from 2012. There is also mild narrowing of the upper esophagus at the level of the aortic arch without a definite stricture at this site. Luciano Choi MD Abdomen Ultrasound 12/14/16 0000 Signed Impressions: Service Date/Time: Wednesday, December 14, 2016 18:04 - CONCLUSION: No acute abnormality demonstrated. Simple, benign appearing cyst of the left kidney incidentally noted. Marck Campbell MD Objective Remarks anicteric lungs clear regular rhtyhm right mild CVA tenderness extremities no edema A/P Problem List: (1) Severe sepsis ICD Code: A41.9 Status: Acute (2) Pyelonephritis ICD Code: N12 Status: Acute (3) Dysphagia ICD Code: R13.10 Status: Acute Assessment and Plan 31 y/o female with: Sepsis: Temp 102.8, HR 108, related to UTI. Sepsis resolving. -UA shows Large occult blood, mod leukocyte esterase. Urine culture shows Escherichia coli sensitive to Rocephin. Urinary tract infection, E Coli -continue Rocephin 2 g IV. Sensitivity showed that Escherichia coli is sensitive to Rocephin. - Can transition to oral antibiotics on discharge tomorrow per the sensitivity profile. -Blood cultures are negative x3 days. -Cipro given in ED, but was switched to Rocephin. -Discontinue IV fluid Abdominal pain/Left flank pain. Persistent hematuria -Ultrasound abdomen was negative. CT of abdomen and pelvis showed mild left hydronephrosis with urethral dilatation with mild obstructive uropathy. -See treatment as above. REconsult Urology- ? need for cystoscopy check H and H now Acute Anemia -Most likely secondary to hematuria. -Status post transfusion. H&H drop. recheck now Dysphagia, chronic, but worse the last week -Barium Swallow shows diffuse narrowing of the hypopharynx extending down to the upper esophageal sphincter possibly due to submucosal edema in the exact etiology is not certain not present on the study from 2012. There is also mild narrowing of the upper esophagus at the level of the aortic arch without a definite stricture at this site. -ENT signed off. -Patient underwent EGD and esophageal dilation - advise on patient to up and ambulate and eat upright Constipation: on Lactulose -colace 100 mg bid DVT prophylaxis: SCDs- encourage to up and ambulate Problem Qualifiers (1) Dysphagia: Qualified Code: R13.10 - Dysphagia, unspecified type Guy Hameed MD Dec 18, 2016 11:44
[2016-12-18 12:00] VITALS: BP 112/79; PULSE 53; RESP 20; TEMP 98.6; O2SAT 100
[2016-12-18] MEDS ORDERED: BISACODYL EC 5 MG TABEC PO ONE (12:00)
[2016-12-18] MEDS ORDERED: MORPHINE SULFATE 4 MG/ML INJ IV PRN (12:00)
[2016-12-18 13:26] LABS: HEMATOCRIT 29.2 % (35.0-46.0)
[2016-12-18] MEDS ORDERED: POTASSIUM CHLORIDE 10 MEQ CONTROLLED RELEASE TAB PO ONE (15:30)
[2016-12-18] MEDS ORDERED: CIPR500T2 PO (15:49)
[2016-12-18] MEDS ORDERED: PANT40TA3 PO (15:50)
[2016-12-18] MEDS ORDERED: POTA1TAB4 PO (15:52)
[2016-12-18] MEDS ORDERED: OXYC1TAB63 PO (15:56)
[2016-12-18] MEDS ORDERED: POLY17S PO (15:58)
--- NOTE | 2016-12-18 15:59 | HHI.DS ---
Discharge Summary Admission Date Dec 14, 2016 at 17:07 Discharge Date: Dec 18, 2016 Admitting Diagnosis pyelonephritis, dysphagia (1) Severe sepsis ICD Code: A41.9 Diagnosis: Principal (2) Pyelonephritis ICD Code: N12 Diagnosis: Principal (3) Dysphagia ICD Code: R13.10 Diagnosis: Secondary Procedures 12/17- EGD with esophageal dilatation Brief History - From Admission 31 y/o female with a of esophageal strictures and multiple abdominal surgeries as a baby (unsure what kind). Over the last week she has had trouble swallowing food and liquids. Cold water she can tolerate cause it feels good. Two days ago she began to have abdominal pain across her lower abdomen. She describes it as throbbing and constant, 10/10. She did use a heating pad with some relief. Complains of frequent urination, hematuria,nausea but no vomiting. She does have a fever upon arrival, but unsure if she had one at home. She has tolerated food but nothing heavy the last 2 days. Denies any diarrhea or constipation. CBC/BMP: 12/18/16 1259 12/18/16 0610 Significant Findings Laboratory Tests Test 12/16/16 12/17/16 12/18/16 12/18/16 05:55 07:05 06:10 12:59 Red Blood Count 1.98 MIL/MM3 3.06 MIL/MM3 2.91 MIL/MM3 (4.00-5.30) (4.00-5.30) (4.00-5.30) Hemoglobin 7.3 GM/DL 10.3 GM/DL 9.7 GM/DL 10.4 GM/DL (11.6-15.3) (11.6-15.3) (11.6-15.3) (11.6-15.3) Hematocrit 21.0 % 29.8 % 28.2 % 29.2 % (35.0-46.0) (35.0-46.0) (35.0-46.0) (35.0-46.0) Mean Corpuscular Volume 106.1 FL (80.0-100.0) Mean Corpuscular Hemoglobin 36.7 PG (27.0-34.0) Red Cell Distribution Width 22.2 % 26.4 % 25.8 % (11.6-17.2) (11.6-17.2) (11.6-17.2) Platelet Count 93 TH/MM3 102 TH/MM3 140 TH/MM3 (150-450) (150-450) (150-450) Potassium Level 3.2 MEQ/L 3.0 MEQ/L (3.5-5.1) (3.5-5.1) Chloride Level 111 MEQ/L 111 MEQ/L 109 MEQ/L (98-107) (98-107) (98-107) Blood Urea Nitrogen 2 MG/DL (7-18) 4 MG/DL (7-18) 4 MG/DL (7-18) Random Glucose 134 MG/DL (74-106) Calcium Level 7.9 MG/DL 8.3 MG/DL (8.5-10.1) (8.5-10.1) Imaging Last Impressions Renal Scan w/Medication NM 12/17/16 0000 Signed Impressions: Service Date/Time: November 08:25 - CONCLUSION: The right kidney is intact and there is sluggish drainage on the left without any significant obstruction. Luciano Choi MD Abdomen/Pelvis CT 12/15/16 0000 Signed Impressions: Service Date/Time: Thursday, December 15, 2016 18:01 - CONCLUSION: 1. Mild left hydronephrosis and ureteral dilatation most characteristic of a mild obstructive uropathy possibly related to recent stone passage.. Calcification in left hemipelvis is characteristic of phlebolith, unchanged from 2010. Calcification measures about 3 mm in diameter. 2. Bilateral small ovarian cysts. Ovaries are not easily from adjacent small bowel loops. Michael Umana MD Barium Swallow X-Ray 12/14/16 0000 Signed Impressions: Service Date/Time: Wednesday, December 14, 2016 15:31 - CONCLUSION: There is diffuse narrowing of the hypopharynx extending down to the upper esophageal sphincter possibly due to submucosal edema in the exact etiology is not certain not present on the study from 2012. There is also mild narrowing of the upper esophagus at the level of the aortic arch without a definite stricture at this site. Luciano Choi MD Abdomen Ultrasound 12/14/16 0000 Signed Impressions: Service Date/Time: Wednesday, December 14, 2016 18:04 - CONCLUSION: No acute abnormality demonstrated. Simple, benign appearing cyst of the left kidney incidentally noted. Marck Campbell MD Transfer Summary 31 y/o female with: Sepsis: Temp 102.8, HR 108, related to UTI. Sepsis resolving. -UA shows Large occult blood, mod leukocyte esterase. Urine culture shows Escherichia coli sensitive to Rocephin. -Blood cultures are negative x3 days. -Cipro given in ED, but was switched to Rocephin. -Discontinue IV fluid Abdominal pain/Left flank pain. -Ultrasound abdomen was negative. CT of abdomen and pelvis showed mild left hydronephrosis with urethral dilatation with mild obstructive uropathy. -See treatment as above. Urinary tract infection, E Coli -continue Rocephin 2 g IV. Sensitivity showed that Escherichia coli is sensitive to Rocephin. - Can transition to oral antibiotics on discharge tomorrow per the sensitivity profile. Macrohematuria -Most likely secondary to kidney stones versus UTI. Resolving. -Urology was consulted, a renal scan shows sluggish drainage on the left but no obstruction. Anemia -Most likely secondary to hematuria. -Status post transfusion. H&H stable. Continue to monitor Dysphagia, chronic,improved -Barium Swallow shows diffuse narrowing of the hypopharynx extending down to the upper esophageal sphincter possibly due to submucosal edema in the exact etiology is not certain not present on the study from 2012. There is also mild narrowing of the upper esophagus at the level of the aortic arch without a definite stricture at this site. -ENT signed off. -Patient underwent EGD and esophageal dilation by GI who advised continuing PPI. GI signed off. Constipation: states + BM . Advise on high fibre diet DVT prophylaxis: SCDs Pt update on day of discharge afebrile, lt yellow colored clear urination, no dysuria, swallowing improved no pain complains advise on staying upright while eating Hospital Course 31 y/o female with: Sepsis: Temp 102.8, HR 108, related to UTI. Sepsis resolving. -UA shows Large occult blood, mod leukocyte esterase. Urine culture shows Escherichia coli sensitive to Rocephin. -Blood cultures are negative x3 days. -Cipro given in ED, but was switched to Rocephin. -Discontinue IV fluid Abdominal pain/Left flank pain. -Ultrasound abdomen was negative. CT of abdomen and pelvis showed mild left hydronephrosis with urethral dilatation with mild obstructive uropathy. -See treatment as above. Urinary tract infection, E Coli -continue Rocephin 2 g IV. Sensitivity showed that Escherichia coli is sensitive to Rocephin. - change to po on- quinolone on DC Macrohematuria -Most likely secondary to kidney stones versus UTI. Resolving. -Urology was consulted, a renal scan shows sluggish drainage on the left but no obstruction. Anemia -Most likely secondary to hematuria. -Status post transfusion. H&H stable. Continue to monitor Dysphagia, chronic, but worse the last week -Barium Swallow shows diffuse narrowing of the hypopharynx extending down to the upper esophageal sphincter possibly due to submucosal edema in the exact etiology is not certain not present on the study from 2012. There is also mild narrowing of the upper esophagus at the level of the aortic arch without a definite stricture at this site. -ENT signed off. -Patient underwent EGD and esophageal dilation by GI who advised continuing PPI. OP ff up Constipation: advise on high fibre diet. KRANTHI thomas today- OP ff up with Urology and GI Pt Condition on Discharge: Stable Discharge Disposition: Discharge Home Discharge Time: <= 30 minutes Discharge Instructions DIET: Follow Instructions for: As Tolerated, No Restrictions Speech Therapy-Diet Recommends: Regular Activities you can perform: Weight Bearing as Harpal Follow up Referrals: Gastroenterology - 2 Weeks @ [facility] - 12/21/16 with Phuong New Orders: BASIC METABOLIC PROF - 12/23/16 New Medications: Ciprofloxacin (Ciprofloxacin) 500 Mg Tab 500 MG PO BID Infection Days 10 Ref 0 TAB Oxycodone-Acetaminophen (Oxycodone-Acetaminophen) 5-325 mg Tab 1 TAB PO Q8HR PRN PAIN #20 Ref 0 TAB Potassium Chloride ER (K-Tab) 20 Meq Tab 20 MEQ PO BID Electrolyte Replacement #10 Ref 0 TAB Pantoprazole (Pantoprazole) 40 Mg Tab 40 MG PO DAILY GI Days 30 Ref 2 TAB Polyethylene Glycol 3350 Powder (Polyethylene Glycol 3350 Powder) 17 Gm Pow 17 GM PO DAILY BM Days 14 BOTTLE Guy Hameed MD Dec 18, 2016 15:59
[2016-12-18] MEDS: cefTRIAXone INJ 2,000 MG in SODIUM CHLORIDE 0.9% INJ 100 ML IV SCH (17:31)
[2016-12-19] MEDS ORDERED: PANTOPRAZOLE SOD 40 MG DELAYED RELEASE TAB PO SCH (09:00)
== END 2016-12-18 19:09 | disposition home or self-care (01) | DRG 872 ==
LOC: NEPE 11:49 → NEDA 17:07 → HOCA 21:23
PROVIDERS: ADMIT Family Medicine; ATTEND Family Medicine
PROC: 30233N1 Transfusion of Nonautologous Red Blood Cells into Peripheral Vein, Percutaneous Approach (ICD-10-PCS; 2016-12-16)
PROC: 0D738ZZ Dilation of Lower Esophagus, Via Natural or Artificial Opening Endoscopic (ICD-10-PCS; 2016-12-17)
PROC: 0DB38ZX Excision of Lower Esophagus, Via Natural or Artificial Opening Endoscopic, Diagnostic (ICD-10-PCS; principal; 2016-12-17 08:30)
DX: A41.9 Sepsis, unspecified organism (principal); D57.1 Sickle-cell disease without crisis; N13.6 Pyonephrosis; R65.20 Severe sepsis without septic shock; K22.2 Esophageal obstruction; K22.70 Barrett's esophagus without dysplasia; K21.0 Gastro-esophageal reflux disease with esophagitis; K59.00 Constipation, unspecified; B96.20 Unspecified Escherichia coli [E. coli] as the cause of diseases classified elsewhere; Z90.3 Acquired absence of stomach [part of]
CPT/HCPCS: 36430; 74177; 74230; 76700; 78708; 80048; 80053; 81001; 83605; 83690; 85007; 85014; 85018; 85025; 85027; 85610; 85730; 86077; 86850; 86870; 86900; 86901; 86920; 86922; 87040; 87077; 87086; 87186; 88305; 96361; 96365; A9539; C1769; C9113; J0696; J0744; J1940; J2270; J7030; P9016; Q9967

== ENCOUNTER 2017-03-19 02:29 | Emergency (ER) | payer MEDICAID ==
[~2017-03-19] VITALS: Ht 167.6 cm; Wt 46.0 kg
[~2017-03-19 02:29] MED LIST changes: +CIPR500T2 PO; -HYDR-3533 PO; +OXYC1TAB63 PO; -PANT20 PO; +PANT40TA3 PO; +POLY17S PO; +POTA1TAB4 PO
[2017-03-19 02:31] VITALS: BP 116/73; PULSE 68; RESP 16; TEMP 98.5; O2SAT 100
[2017-03-19] MEDS ORDERED: SODIUM CHLOR 0.9% 1000 ML INJ 1,000 ML IV SCH (05:27)
[2017-03-19] MEDS ORDERED: GLUCAGON 1 MG/ML VIAL IV PUSH ONE ×2 (05:30→06:30)
[2017-03-19] MEDS ORDERED: METOCLOPRAMIDE HCL 10 MG/2 ML VIAL IV PUSH ONE (05:30)
[2017-03-19] MEDS ORDERED: SODIUM CHLORIDE 0.9% FLUSH 10 ML FLUSH IV FLUSH PRN (05:30)
[2017-03-19] MEDS ORDERED: PANTOPRAZOLE SODIUM 40 MG VIAL IVP ONE (05:30)
[2017-03-19 05:34] VITALS: O2SAT 96
--- NOTE | 2017-03-19 05:38 | PD ---
HPI Chief Complaint: ENT Complaint Time Seen by Provider: 05:23 Travel History International Travel<30 days: No Contact w/Intl Traveler<30days: No Traveled to known affect area: No History of Present Illness HPI Patient is a 31-year-old female with history of esophageal strictures and multiple abdominal surgeries as a baby, presents to ER with c/o of possible food bolus. Patient reports that around 6 PM, she was eating chicken and reports that she feels as if it is stuck in her throat. Patient is unsure if she has a chicken bone or a piece of chicken stuck in her throat. Reports that she has tried all night to drink and eat foods to help pass the food bolus, reports that nothing has helped. Patient does follow up with Dr. Yang with GI, reports that she had an esophageal dilation in November 2016. She does take protonix daily. PFSH Past Medical History Anemia: Yes Blood Disorders: No Cancer: No Cardiovascular Problems: No Diabetes: No Diminished Hearing: No Endocrine: No Gastrointestinal Disorders: Yes (DIFFICULTY SWALLOWING) GERD: Yes Genitourinary: No Hepatitis: No Hiatal Hernia: No Immune Disorder: No Musculoskeletal: No Neurologic: No Psychiatric: No Reproductive: No Respiratory: No Migraines: Yes Seizures: Yes (last one 2006) Sickle Cell Disease: Yes (TRAIT) Thyroid Disease: No ?: Not : 1 Para: 1 Miscarriage: 0 : 0 Past Surgical History Abdominal Surgery: No Body Medical Devices: NONE Section: Yes (2006) Genitourinary Surgery: Yes Gynecologic Surgery: Yes (C SECTION; TOTAL HYSTERECTOMY ) Hysterectomy: Yes Joint Replacement: No Pacemaker: No Other Surgery: Yes (HYSTERECTOMY) Social History Alcohol Use: No Tobacco Use: No Substance Use: Yes (marijauna daily ) Allergies-Medications (Allergen,Severity, Reaction): Coded Allergies: Amoxicillin (Verified Allergy, Severe, Swelling, 03/19/17) Imitrex (Verified Allergy, Severe, DIZZY, 03/19/17) MIGRAINES Penicillin (Verified Allergy, Severe, HOT FLASHES, H/A, 03/19/17) ALL "CILLINS" Uncoded Allergies: ALL CILLINS (Allergy, Severe, 12/14/12) Reported Meds & Prescriptions Reported Meds & Active Scripts Active Pantoprazole (Pantoprazole Sodium) 40 Mg Tab 40 Mg PO DAILY 30 Days Review of Systems General / Constitutional: No: Fever Eyes: No: Visual changes HENT: Positive: Other (esophageal food bolus), No: Headaches Cardiovascular: No: Chest Pain or Discomfort Respiratory: No: Shortness of Breath Gastrointestinal: No: Abdominal Pain Genitourinary: No: Dysuria Musculoskeletal: No: Pain Skin: No Rash Neurologic: No: Weakness Psychiatric: No: Depression Endocrine: No: Polydipsia Hematologic/Lymphatic: No: Easy Bruising Physical Exam Narrative GENERAL: NAD, nontoxic SKIN: Focused skin assessment warm/dry. HEAD: Atraumatic. Normocephalic. EYES: Pupils equal and round. No scleral icterus. No injection or drainage. ENT: No nasal bleeding or discharge. Mucous membranes pink and moist. Patient tolerating her own secretions, patient not drooling, no obvious FB in posterior pharynx NECK: Trachea midline. No JVD. CARDIOVASCULAR: Regular rate and rhythm. No murmur appreciated. RESPIRATORY: No accessory muscle use. Clear to auscultation. Breath sounds equal bilaterally. GASTROINTESTINAL: Abdomen soft, non-tender, nondistended. Hepatic and splenic margins not palpable. MUSCULOSKELETAL: No obvious deformities. No clubbing. No cyanosis. No edema. NEUROLOGICAL: Awake and alert. No obvious cranial nerve deficits. Motor grossly within normal limits. Normal speech. PSYCHIATRIC: Appropriate mood and affect; insight and judgment normal. Data Data Last Documented VS Vital Signs Date Time Temp Pulse Resp B/P Pulse Ox O2 Delivery O2 Flow Rate FiO2 03/19/17 05:34 96 Room Air 03/19/17 02:31 98.5 68 16 116/73 Orders Basic Metabolic Panel (Bmp) (03/19/17 05:27) Complete Blood Count With Diff (03/19/17 05:27) Prothrombin Time / Inr (Pt) (03/19/17 05:27) Act Partial Throm Time (Ptt) (03/19/17 05:27) Iv Access Insert/Monitor (03/19/17 05:27) Ecg Monitoring (03/19/17 05:27) Oximetry (03/19/17 05:27) NPO (03/19/17 05:27) Pantoprazole Inj (Protonix Inj) (03/19/17 05:30) Sodium Chlor 0.9% 1000 Ml Inj (Ns 1000 M (03/19/17 05:27) Sodium Chloride 0.9% Flush (Ns Flush) (03/19/17 05:30) Ed Urine Pregnancytest Poc (03/19/17 05:27) Glucagon Inj (Glucagon Inj) (03/19/17 05:30) Metoclopramide Inj (Reglan Inj) (03/19/17 05:30) Soft Tissue Neck (03/19/17 ) Glucagon Inj (Glucagon Inj) (03/19/17 06:30) Consult Gastroenterology (03/19/17 ) Diet Npo (03/19/17 Breakfast) Consent (03/19/17 06:37) Labs Laboratory Tests Test 03/19/17 05:40 White Blood Count 3.7 TH/MM3 Red Blood Count 2.84 MIL/MM3 Hemoglobin 11.4 GM/DL Hematocrit 32.5 % Mean Corpuscular Volume 114.3 FL Mean Corpuscular Hemoglobin 40.0 PG Mean Corpuscular Hemoglobin 35.0 % Concent Red Cell Distribution Width 21.7 % Platelet Count 177 TH/MM3 Mean Platelet Volume 7.2 FL Neutrophils (%) (Auto) 31.7 % Lymphocytes (%) (Auto) 53.9 % Monocytes (%) (Auto) 9.9 % Eosinophils (%) (Auto) 3.9 % Basophils (%) (Auto) 0.6 % Neutrophils # (Auto) 1.2 TH/MM3 Lymphocytes # (Auto) 2.0 TH/MM3 Monocytes # (Auto) 0.4 TH/MM3 Eosinophils # (Auto) 0.1 TH/MM3 Basophils # (Auto) 0.0 TH/MM3 CBC Comment AUTO DIFF Prothrombin Time 12.2 SEC Prothromb Time International 1.1 RATIO Ratio Activated Partial 26.0 SEC Thromboplast Time MDM Medical Decision Making Medical Screen Exam Complete: Yes Emergency Medical Condition: Yes Interpretation(s) Vital Signs Date Time Temp Pulse Resp B/P Pulse Ox O2 Delivery O2 Flow Rate FiO2 03/19/17 02:31 98.5 68 16 116/73 100 Room Air Differential Diagnosis Differential includes esophageal food bolus, esophagitis Narrative Course 31-year-old female with history of esophageal strictures presents the emergency room for evaluation of possible food bolus. Patient has been stable in the ER, has been tolerating her own secretions. Glucagon ordered to help with passage of food bolus. Soft tissue of neck xray ordered to evaluate for possible chicken bone. Patient does follow up with Dr. Yang - if food bolus does not pass on it's own , patient will require EGD for removal of FB Vital Signs Date Time Temp Pulse Resp B/P Pulse Ox O2 Delivery O2 Flow Rate FiO2 03/19/17 05:34 96 Room Air 03/19/17 02:31 98.5 68 16 116/73 100 Room Air Laboratory Tests Test 03/19/17 05:40 White Blood Count 3.7 TH/MM3 (4.0-11.0) Red Blood Count 2.84 MIL/MM3 (4.00-5.30) Hemoglobin 11.4 GM/DL (11.6-15.3) Hematocrit 32.5 % (35.0-46.0) Mean Corpuscular Volume 114.3 FL (80.0-100.0) Mean Corpuscular Hemoglobin 40.0 PG (27.0-34.0) Mean Corpuscular Hemoglobin 35.0 % Concent (32.0-36.0) Red Cell Distribution Width 21.7 % (11.6-17.2) Platelet Count 177 TH/MM3 (150-450) Mean Platelet Volume 7.2 FL (7.0-11.0) Neutrophils (%) (Auto) 31.7 % (16.0-70.0) Lymphocytes (%) (Auto) 53.9 % (9.0-44.0) Monocytes (%) (Auto) 9.9 % (0.0-8.0) Eosinophils (%) (Auto) 3.9 % (0.0-4.0) Basophils (%) (Auto) 0.6 % (0.0-2.0) Neutrophils # (Auto) 1.2 TH/MM3 (1.8-7.7) Lymphocytes # (Auto) 2.0 TH/MM3 (1.0-4.8) Monocytes # (Auto) 0.4 TH/MM3 (0-0.9) Eosinophils # (Auto) 0.1 TH/MM3 (0-0.4) Basophils # (Auto) 0.0 TH/MM3 (0-0.2) CBC Comment AUTO DIFF Prothrombin Time 12.2 SEC (9.8-11.6) Prothromb Time International 1.1 RATIO Ratio Activated Partial 26.0 SEC Thromboplast Time (24.3-30.1) Patient was given glucagon, Reglan, prontonix, reports that she is still unable to pass FB. 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 Yang , will perform EGD patient does have someone to drive her home after procedure and does not require admission to hospital Diagnosis Primary Impression: Esophageal foreign body Qualified Code: T18.108A - Esophageal foreign body, initial encounter Additional Impression: Anemia Qualified Code: D64.9 - Anemia, unspecified type Patient Instructions: General Instructions Additional Instructions: Please follow up with Dr. Yang in office Return to ER as needed Please take your protonix as prescribed Cookie Chen DO Mar 19, 2017 05:38
[2017-03-19 06:00] LABS: AUTOMATED NEUTROPHIL # 1.2 TH/MM3 (1.8-7.7); BASOPHIL % 0.6 % (0.0-2.0); EOSINOPHIL # 0.1 TH/MM3 (0-0.4); EOSINOPHIL % 3.9 % (0.0-4.0); HEMATOCRIT 32.5 % (35.0-46.0); LYMPH % 53.9 % (9.0-44.0); MEAN CELL VOLUME 114.3 FL (80.0-100.0); MONO % 9.9 % (0.0-8.0); NEUT % 31.7 % (16.0-70.0); PLATELET COUNT 177 TH/MM3 (150-450); RED BLOOD COUNT 2.84 MIL/MM3 (4.00-5.30); RED CELL DISTRIBUTION WIDTH 21.7 % (11.6-17.2); WHITE BLOOD COUNT 3.7 TH/MM3 (4.0-11.0)
[2017-03-19 06:08] LABS: HEMO FLAGS AUTO DIFF; INTERNATIONAL NORMALIZED RATIO 1.1 RATIO; PROTHROMBIN TIME - PATIENT 12.2 SEC (9.8-11.6)
--- NOTE | 2017-03-19 06:34 | RADRPT ---
EXAM DATE/TIME: 03/19/2017 06:18 [facility] COMPARISON: SOFT TISSUE NECK, April 08, 2013, 23:10. INDICATIONS : Pt feels as if swallowed a chicken bone and it is lodged in her throat. MEDICAL HISTORY : Sickle Cell disease. Gastroesophageal reflux disease. Seizures SURGICAL HISTORY : Hysterectomy. section. ENCOUNTER: Initial ACUITY: 1 day PAIN SCORE: 6/10 LOCATION: Bilateral neck FINDINGS: Two view examination of the soft tissues of the neck demonstrates the hypopharyngeal airway to have a grossly normal configuration. The trachea is midline. No radiopaque foreign bodies are seen. CONCLUSION: Unremarkable soft tissue examination of the neck. Kodi Grey MD on March 19, 2017 at 6:31 Board Certified Radiologist. This report was verified electronically.
[2017-03-19 06:50] LABS: BICARBONATE 27.7 MEQ/L (21.0-32.0); POTASSIUM 3.5 MEQ/L (3.5-5.1); SCAN/DIFF AUTO DIFF CONFIRMED
[2017-03-19 07:56] VITALS: BP 92/62; PULSE 73; RESP 16; O2SAT 100
--- NOTE | 2017-03-19 08:09 | PD.CONS ---
HPI History of Present Illness This is a 31 year old female patient with a history of a stomach injury requiring total gastrectomy as a child, esophageal strictures, GERD, Oneal's Esophagus, and multiple foreign bodies in the esophagus. She reports that she had an injury as an , requiring multiple surgeries and ultimately a total gastrectomy, but does not really know the details and states her mother does not like to discuss this. She was hospitalized in November for dysphagia and was evaluated with a barium swallow (12/14/16)----> There is diffuse narrowing of the hypopharynx extending down to the upper esophageal sphincter possibly due to submucosal edema in the exact etiology is not certain not present on the study from 2012. There is also mild narrowing of the upper esophagus at the level of the aortic arch without a definite stricture at this site. She underwent further evaluation with EGD with dilatation (12/17/16)---> 1. Esophagitis distal esophagus-biopsy, s/p total gastrectomy, stricture distal esophagus, jejuno/esophageal anastomosis 2. Retroflexion was not performed. Pathology revealed squamocolumnar mucosa with intestinal metaplasia and mildly active chronic inflammation, negative for glandular dysplasia. She reports that she was doing well at home, taking Protonix 40mg po daily and denies any difficulties with dysphagia or odynophagia until last night. Around 6pm last night, she was eating chicken and had a piece of meat get lodged in her upper esophagus. She tried to drink fluids to get the meat to go down, but she reports that she was unable to pass the meat or the fluids. She is able to clear her secretions, but she complains of a pressure like pain in her esophagus and chest when she tries to swallow. No nausea, vomiting, abdominal pain, melena, or hematochezia. Her GERD has been well controlled with the protonix. (Argenis Brar) PFSH Past Medical History Esophageal strictures Oneal's Esophagus. Stomach injury requiring bypass surgery as child Hx foreign body in esophagus Hx Ileitis/Jejunitis Past Surgical History Hx pancytopenia GERD C Section Hysterectomy Multiple EGD's with dilatation Gastric bypass surgery secondary to stomach injury as child (Argenis Brar) Coded Allergies: Amoxicillin (Verified Allergy, Severe, Swelling, 03/19/17) Imitrex (Verified Allergy, Severe, DIZZY, 03/19/17) MIGRAINES Penicillin (Verified Allergy, Severe, HOT FLASHES, H/A, 03/19/17) ALL "CILLINS" Uncoded Allergies: ALL CILLINS (Allergy, Severe, 12/14/12) Medications Allergies Coded Allergies Type Severity Reaction Last Updated Verified Amoxicillin Allergy Severe Swelling 03/19/17 Yes Imitrex Allergy Severe DIZZY 03/19/17 Yes Penicillin Allergy Severe HOT FLASHES, H/A 03/19/17 Yes Uncoded Allergies Type Severity Reaction Last Updated Verified ALL CILLINS Allergy Severe 12/14/12 Active Scripts Medications Dose Route/Sig Days Date Category Pantoprazole (Pantoprazole Sodium) 40 Mg Tab 40 Mg PO DAILY 30 12/18/16 Rx Family History Grandfather had DM Mom with DM, breast cancer Social History Denies the use of tobacco/etoh. Denies illicit drug use (Argenis Brar) Review of Systems Constitutional: DENIES: Fever, Weight loss, Chills Endocrine: DENIES: Polydipsia Respiratory: DENIES: Cough, Shortness of breath Cardiovascular: COMPLAINS OF: Chest pain Gastrointestinal: COMPLAINS OF: Difficulty Swallowing, Odynophagia, Heartburn, DENIES: Abdominal pain, Black stools, Bloody stools, Constipation, Diarrhea, Nausea, Vomiting, Hematemesis Musculoskeletal: DENIES: Joint pain, Back pain Hematologic/lymphatic: DENIES: Bruising Neurologic: DENIES: Headache Psychiatric: DENIES: Confusion (Argenis Brar) GI Exam Vitals I&O Vital Signs Date Time Temp Pulse Resp B/P Pulse Ox O2 Delivery O2 Flow Rate FiO2 03/19/17 07:56 73 16 92/62 100 Room Air 03/19/17 05:34 96 Room Air 03/19/17 02:31 98.5 68 16 116/73 100 Room Air Imaging Last Impressions Soft Tissue Neck X-Ray 03/19/17 0000 Signed Impressions: Service Date/Time: Sunday, March 19, 2017 06:18 - CONCLUSION: Unremarkable soft tissue examination of the neck. Kodi Grey MD Laboratory Test 03/19/17 05:40 White Blood Count 3.7 TH/MM3 Red Blood Count 2.84 MIL/MM3 Hemoglobin 11.4 GM/DL Hematocrit 32.5 % Mean Corpuscular Volume 114.3 FL Mean Corpuscular Hemoglobin 40.0 PG Mean Corpuscular Hemoglobin 35.0 % Concent Red Cell Distribution Width 21.7 % Platelet Count 177 TH/MM3 Mean Platelet Volume 7.2 FL Neutrophils (%) (Auto) 31.7 % Lymphocytes (%) (Auto) 53.9 % Monocytes (%) (Auto) 9.9 % Eosinophils (%) (Auto) 3.9 % Basophils (%) (Auto) 0.6 % Neutrophils # (Auto) 1.2 TH/MM3 Lymphocytes # (Auto) 2.0 TH/MM3 Monocytes # (Auto) 0.4 TH/MM3 Eosinophils # (Auto) 0.1 TH/MM3 Basophils # (Auto) 0.0 TH/MM3 CBC Comment AUTO DIFF Differential Comment AUTO DIFF CONFIRMED Prothrombin Time 12.2 SEC Prothromb Time International 1.1 RATIO Ratio Activated Partial 26.0 SEC Thromboplast Time Sodium Level 138 MEQ/L Potassium Level 3.5 MEQ/L Chloride Level 103 MEQ/L Carbon Dioxide Level 27.7 MEQ/L Anion Gap 7 MEQ/L Blood Urea Nitrogen 6 MG/DL Creatinine 0.78 MG/DL Estimat Glomerular Filtration 106 ML/MIN Rate Random Glucose 93 MG/DL Calcium Level 9.0 MG/DL Physical Examination HEENT: Normocephalic; atraumatic; no jaundice. CHEST: CTA CARDIAC: RRR ABDOMEN: Soft, nondistended, nontender; no hepatosplenomegaly; bowel sounds are present in all four quadrants. EXTREMITIES: No clubbing, cyanosis, or edema. SKIN: Normal; no rash; no jaundice. BOX TENDER: No focal deficits; alert and oriented times three. (Argenis Brar) Assessment and Plan Plan ASSESSMENT: - Foreign body in the esophagus. Pt with known history of esophageal strictures requiring dilatations. EGD with dilatation (12/17/16)---> 1. Esophagitis distal esophagus-biopsy, s/p total gastrectomy, stricture distal esophagus, jejuno/esophageal anastomosis 2. Retroflexion was not performed. Pathology revealed squamocolumnar mucosa with intestinal metaplasia and mildly active chronic inflammation, negative for glandular dysplasia. She reports that she was doing well at home, taking Protonix 40mg po daily and denies any difficulties with dysphagia or odynophagia until last night. Around 6pm last night, she was eating chicken and had a piece of meat get lodged in her upper esophagus- tried to drink to push it down, but the fluids would not go down either. She is able to swallow her secretions. S/P glucagon without any success. Will plan for EGD with foreign body removal this am. - Esophageal strictures, Last dilatation in November 2016 - GERD. On Protonix 40mg po daily. States her reflux is well controlled with this. - S/P Total gastrectomy. States she had an injury as an , requiring multiple surgeries and ultimately a total gastrectomy- does not know the details. - Anemia. 11.432.5 No active bleeding. PLAN: - Plan for egd with foreign body removal - Obtain consents - NPO - S/P Glucagon - S/P Protonix - Further recommendations to follow after results of above - Pt seen and examined by Dr. Yang and myself and this note is written on her behalf (Argenis Brar) Physician Comments seen, examined agree with above (Eneida Yang MD) Argenis Brar Mar 19, 2017 08:09 Eneida Yang MD Mar 19, 2017 20:52
[2017-03-19] MEDS ORDERED: PROPOFOL 200 MG/20 ML AMP IV PUSH ONE (09:18)
--- NOTE | 2017-03-19 09:18 | GIPROC ---
[facility] [address] [facility]. [facility], [address] EGD WITH DILATION PROCEDURE REPORT EXAM DATE: 03/19/2017 PATIENT NAME: Octavia Muir MR#: [id number] BIRTHDATE: 1985 ATTENDING: Eneida Yang MD ORDER #: [id number] BILINGUAL LEGAL ASSISTANT: Lexii Hewitt RN and Nurys Trotter RN STATUS: outpatient INDICATIONS: The patient is a 31 yr old female here for an EGD with dilation due to foreign body in esophagus history of esophageal stricture PROCEDURE PERFORMED: EGD w/ biopsy EGD w/ dilation of esophagus via guidewire MEDICATIONS: Per Anesthesia and None. TOPICAL ANESTHETIC: none CONSENT: The patient understands the risks and benefits of the procedure and understands that these risks include, but are not limited to: sedation, allergic reaction, infection, perforation and/or bleeding. Alternative means of evaluation and treatment include, among others: physical exam, x-rays, and/or surgical intervention. The patient elects to proceed with this endoscopic procedure. medical equipment was checked for proper function. Hand hygiene and appropriate measures for infection prevention was taken. After the risks, benefits and alternatives of the procedure were thoroughly explained, Informed consent was verified, confirmed and timeout was successfully executed by the treatment team. The patient was anesthetized with topical anesthesia and the endoscope was introduced through the mouth and advanced to the proximal jejunum. The instrument was slowly withdrawn as the mucosa was fully examined. Food bolus in esophgaus-removed using a net stricture distal esophagus. S/p total gastrectomy. Dilation was performed at gastroesophageal junction. DILATOR: SIZE(S): RESISTANCE: HEME: APPEARANCE: Dilator: Savary over guidewire Size(s): 16 COMMENT: Retroflexion was not performed ADVERSE EVENTS: There were no complications. IMPRESSIONS: 1. Food bolus in esophgaus-removed using a net stricture distal esophagus 2. Retroflexion was not performed RECOMMENDATIONS: 1. Anti-reflux regimen 2. Continue PPI 3. Dilatations PRN 4. Ok to [place] home when criteria met egd/dilatation 3 month REPEAT EXAM: Return 3 months EGD with dilatation Eneida Yang MD eSigned: Eneida Yang MD 03/19/2017 9:17 AM cc: PATIENT NAME: Octavia Muir MR#: [id number]
[2017-03-19] MEDS ORDERED: DO NOT ADM ANY ANTICOAGULANT DRUGS PRN (09:28)
[2017-03-19 10:39] VITALS: BP 96/66; PULSE 77; RESP 20; TEMP 97.9; O2SAT 100
== END 2017-03-19 10:39 | disposition home or self-care (01) ==
LOC: NEPC 02:29
DX: T18.128A Food in esophagus causing other injury, initial encounter (principal); D64.9 Anemia, unspecified; K21.9 Gastro-esophageal reflux disease without esophagitis; K22.2 Esophageal obstruction; Z98.84 Bariatric surgery status; Z88.0 Allergy status to penicillin
CPT/HCPCS: 00740; 43247; 43248; 70360; 80048; 85025; 85610; 85730; 96374; 96375; 96376; 99284; C1769; C9113; J1610; J2765; J7030

== ENCOUNTER 2018-03-03 16:40 | Inpatient (IN) ==
[2018-03-03] MEDS ORDERED: Sod Chloride 0.9% Inj 1,000 ML IV.SIG ONE (20:49)
[2018-03-03] MEDS ORDERED: Morphine Inj 4 MG/ML Vial IV.PUSH ONE (20:49)
[2018-03-03] MEDS ORDERED: Diatrizoate Meglum/Diatrizoate Sod Liq 9 ML UDC ONE (22:00)
[2018-03-03 22:04] LABS: Amorphous Sediment,Urine Rare /hpf; Bacteria,Urine Many /hpf; Bilirubin,Urine Negative (Negative); Clarity,Urine Cloudy (Clear); Color,Urine Amber (Yellw/Straw); Glucose,Urine (UA) Negative (Negative); Leukocyte Esterase,Urine Large (Negative); Mucus,Urine Few /lpf (Occasional); Nitrite,Urine Positive (Negative); Specific Gravity,Urine 1.014 (1.002-1.035); Squamous Epithelial Cell,Urine 7 /hpf (0-5); Urobilinogen,Urine 4 or Greater mg/dL (Less than 2)
[2018-03-03 22:15] LABS: Alanine Aminotransferase 43 U/L (10-53)
[2018-03-03 22:17] LABS: Alkaline Phosphatase 61 U/L (45-117); Total Protein 7.4 g/dL (6.4-8.2)
[2018-03-03 22:26] LABS: Albumin 3.8 g/dL (3.4-5.0); Anion Gap 11 meq/L (5-15); Aspartate Aminotransferase 117 U/L (15-37); Blood Urea Nitrogen 9 mg/dL (7-18); Calcium 9.1 mg/dL (8.5-10.1); Carbon Dioxide 24.4 meq/L (21.0-32.0); Chloride 104 meq/L (98-107); Glomerular Filtration Rate Greater Than 89 mL/min (>89); Glucose,Random 85 mg/dL (74-106); Lipase 166 U/L (73-393); Sodium 139 meq/L (136-145)
[2018-03-03 22:30] LABS: Potassium 3.4 meq/L (3.5-5.1)
--- NOTE | 2018-03-03 22:41 | ED ---
HPI General Chief Complaint: Abdominal Pain Stated Complaint: GI Complaint Time Seen by Provider: 03/03/18 20:38 Source: patient and old records reviewed History of Present Illness HPI narrative: This is a 32-year-old woman who presents to the emergency department complaining of abdominal pain. She has a history of severe injuries as a very small child to the stomach requiring gastrectomy with esophageal jejunal anastomosis complicated by Oneal's esophagus, esophageal stricture and stenosis, recurrent esophageal foreign body, need for multiple procedures. She also has had hysterectomy and . She came in today because she has been having this worsening abdominal pain. Over the past 3-4 days she has had worsening trouble swallowing. She has been able to tolerate any solid foods. This is similar when she has had trouble with her esophagus in the past. However over the past day or 2 she has had worsening significant abdominal discomfort with tenderness and guarding. She has not had this before. She has also had a little bit of bright red blood per rectum. She has had this in times in the past. She follows with Dr. Taylor 2. Related Data Home Medications Medication Instructions Recorded Confirmed No Known Home Medications 03/03/18 03/03/18 Allergies Allergy/AdvReac Type Severity Reaction Status Date / Time amoxicillin Allergy Severe Swelling Unverified 04/13/17 12:57 penicillin G Allergy Severe HOT Unverified 04/13/17 12:57 FLASHES, H/A sumatriptan Allergy Severe DIZZY Unverified 04/13/17 12:57 ALL CILLINS Allergy Severe Uncoded 12/14/12 08:25 Review of Systems ROS Unobtainable All other systems reviewed negative except as stated in HPI [facility] Medical History Medical History Barretts esophagus (Acute) Anemia (Chronic) delivery delivered (Chronic) Esophageal stricture (Chronic) History of hysterectomy (Chronic) Surgical History Surgical History H/O abdominal surgery (Chronic) Status post gastrectomy (Chronic) Social History Social History Substance History: Active Abuse Second Hand Smoke Exposure: No Smoking Status: Never smoker How Often Do You Have a Drink Containing Alcohol: Never Recent Travel in [facility] within the Last 8 Weeks: No Recent Out of Country Travel within the Last 8 Weeks: No Substance Abuse Detail Marijuana: Last Used: last week Immunization History Tetanus Immunization: >5 Years Hx Influenza Vaccine This Season: No Exam Narrative Exam Narrative: GENERAL: Is a 32-year-old woman, thin, appears older than stated age. Significant muscle wasting. SKIN: Focused skin assessment warm/dry. Slightly decreased skin turgor. HEAD: Atraumatic. Normocephalic. EYES: Pupils equal and round. No scleral icterus. No injection or drainage. ENT: No nasal bleeding or discharge. Mucous membranes pink and moist. Temporal wasting. NECK: Trachea midline. No JVD. CARDIOVASCULAR: Regular rate and rhythm. No murmur appreciated. RESPIRATORY: No accessory muscle use. Clear to auscultation. Breath sounds equal bilaterally. GASTROINTESTINAL: Abdomen scaphoid and flat. Multiple well-healed surgical scars. Moderate diffuse tenderness with voluntary guarding. MUSCULOSKELETAL: No obvious deformities. No clubbing. No cyanosis. No edema. NEUROLOGICAL: Awake and alert. No obvious cranial nerve deficits. Motor grossly within normal limits. Normal speech. PSYCHIATRIC: Appropriate mood and affect; insight and judgment normal. Course Initial Documented Vital Signs Temperature 99.3 F 03/03/18 17:06 Pulse Rate 106 H 03/03/18 17:06 Respiratory Rate 28 H 03/03/18 17:06 Blood Pressure 88/52 L 03/03/18 17:06 Pulse Oximetry 99 03/03/18 17:06 Last Documented Vital Signs Temperature 99.3 F 03/03/18 17:06 Pulse Rate 80 03/03/18 21:10 Respiratory Rate 16 03/03/18 21:10 Blood Pressure 117/68 03/03/18 21:10 Pulse Oximetry 100 03/03/18 21:10 Medical Decision Making MDM Narrative Medical decision making narrative: This 32-year-old woman presents to the emergency department complaining of abdominal pain. She is a little tachycardic and hypotensive on initial arrival. She is a history of urinary tract infections and does have significant pyuria on exam and she also has a history of this esophageal strictures Oneal's esophagus status post gastrectomy and extensive surgical history. She has been losing significant amount of weight recently. Concern for gastric malignancy. She has significant muscle wasting. Will check labs, CT of the abdomen pelvis with IV contrast, reassess. Likely admission for treatment for UTI, and esophagoscopy. POC Test Results POC Urine Results: Negative Lab Data Lab results reviewed: Yes I reviewed the patient's lab results. Result diagrams: 03/03/18 21:19 03/03/18 21:19 Lab Results 03/03/18 03/03/18 03/03/18 Range/Units 21:19 21:19 21:19 Sodium 139 (136-145) meq/L Potassium 3.4 L (3.5-5.1) meq/L Chloride 104 (98-107) meq/L Carbon Dioxide 24.4 (21.0-32.0) meq/L Anion Gap 11 (5-15) meq/L BUN 9 (7-18) mg/dL Creatinine 0.78 (0.50-1.00) mg/dL Estimated GFR Greater than 89 (>89) mL/min Random Glucose 85 (74-106) mg/dL Lactic Acid 0.8 (0.4-2.0) mmol/L Calcium 9.1 (8.5-10.1) mg/dL Total Bilirubin 1.2 H (0.2-1.0) mg/dL AST 117 H (15-37) U/L ALT 43 (10-53) U/L Alkaline Phosphatase 61 (45-117) U/L Total Protein 7.4 (6.4-8.2) g/dL Albumin 3.8 (3.4-5.0) g/dL Lipase 166 (73-393) U/L Urine Color Shira (Yellw/Straw) Urine Clarity Cloudy H (Clear) Urine pH 6.0 (5.0-8.5) Ur Specific [place] 1.014 (1.002-1.035) Urine Protein 100 H (Neg-Trace) mg/dL Urine Glucose (UA) Negative (Negative) mg/dL Urine Ketones Negative (Negative) mg/dL Urine Occult Blood Large H (Negative) Urine Nitrate Positive H (Negative) Urine Bilirubin Negative (Negative) Urine Urobilinogen 4 or greater (Less than 2) mg/dL Ur Leukocyte Esterase Large H (Negative) Urine RBC 22 H (0-3) /hpf Urine WBC (0-5) /hpf Urine WBC Clumps Many H (None) Ur Squamous Epith Cells 7 (0-5) /hpf Amorphous Sediment Rare H (None) /hpf Urine Bacteria Many H (None) /hpf Urine Mucus Few H (Occasional) /lpf Micro UA Comment Culture indicated Urine Culture Comments Culture indicated Discharge Plan Discharge Disposition Patient Disposition: 32 Still Patient Physicians Team ED Provider: James Ramos Primary Care Provider: Primary Care Camille Ko Rxs /Orders / Referrals /Forms Prescriptions: No Action No Known Home Medications RF: 0 Discharge Interventions Interventions: Vital Signs Last Done: 03/03/18 21:10 Status ED Status: Pending Admission
[2018-03-03 22:42] LABS: Baso % (Auto) 0.3 % (0.0-2.0); Eos % (Auto) 0.3 % (0.0-4.0); Hemoglobin 7.2 gm/dL (11.6-15.3); Lymph # (Auto) 1.7 th/mm3 (1.0-4.8); Lymph % (Auto) 60.6 % (9.0-44.0); Mean Corpuscular HGB Conc 34.8 % (32.0-36.0); Mean Corpuscular Hemoglobin 39.2 pg (27.0-34.0); Mean Corpuscular Volume 112.5 fL (80.0-100.0); Mean Platelet Volume 8.2 fL (7.0-11.0); Mono # (Auto) 0.2 th/mm3 (0.0-0.9); Mono % (Auto) 7.9 % (0.0-8.0); Neut # (Auto) 0.9 th/mm3 (1.8-7.7); Neut % (Auto) 30.9 % (16.0-70.0); Platelet Count 79 th/mm3 (150-450); Red Blood Count 1.85 mil/mm3 (4.00-5.30); Red Cell Distribution Width 23.1 % (11.6-17.2); White Blood Count 2.8 th/mm3 (4.0-11.0)
[2018-03-03 22:44] LABS: Hematocrit 20.8 % (35.0-46.0)
[2018-03-03 23:24] LABS: Metamyelocytes 1 % (0-1); Monocytes 6 % (0-8); Myelocytes 2 % (0-0); Tallied Nucleated RBC 1 (0-0)
[2018-03-03 23:25] LABS: Lymphocytes 56 % (9-44)
[2018-03-03 23:27] LABS: Ovalocytes 1+; Platelet Morphology Normal (Normal)
[2018-03-03 23:36] LABS: Acanthocytes Occ
[2018-03-04] MEDS ORDERED: Iohexol 300 MG/ML 100 ML Vial (for Rad CT) IVCONTRAST ONE (00:49)
--- NOTE | 2018-03-04 01:11 | CT ---
EXAM DATE: 03/04/2018 12:51 AM EDT AGE/SEX: 32 years / Female INDICATIONS: Rule out mass. CLINICAL DATA: This is the patient's initial encounter. Patient reports that signs and symptoms have been present for 1 day and indicates a pain score of 0/10. MEDICAL/SURGICAL HISTORY: Anemia. Oneal's esophagus. Hysterectomy. Gastrectomy. ORAL CONTRAST: Partial prescribed oral contrast ingested. RADIATION DOSE: 6.64 CTDI (mGy) [place] [facility] [place]. [facility] [place] CONTRA ST[place] 12/15/[place]. . TECHNIQUE: Multiple contiguous axial images were obtained through the abdomen and pelvis following b olus infusion of 70 ml Omnipaque 350 (iohexol) nonionic water-soluble contrast as a single exam dos e. Partial prescribed oral contrast ingested. Using automated exposure control and adjustment of the mA and/or kV according to patient size, radiation dose was kept as low as reasonably achievable to o btain optimal diagnostic quality images. DICOM format image data is available electronically for rev iew and comparison. FINDINGS: The liver measures 19.4 cm craniocaudal. The pancreas, adrenal glands and right kidney are all within normal limits. Benign 2 cm cyst of the left kidney. Upper limits of normal size spleen with distende d splenic vein and portal vein again noted, not significantly changed. Surgical changes of the stomach again noted. A small hiatal hernia is present. I don't convincingly s ee a gastric remnant mass. No obstruction or acute inflammatory changes are seen of the gastrointesti nal tract. There is a 3.6 cm left ovarian cyst. Reported previous hysterectomy. There is a 4.5 cm cystic and georgina id mass of the uterine remnant and/or vaginal cuff that is long-term stable and probably a fibroid. R ight adnexal region within normal limits. No pelvic free fluid. No acute bony abnormality. Visualized lung bases are clear. CONCLUSION: 1. Surgical changes of the stomach without a perceptible abdominal mass. Small hiatal hernia again n oted. 2. Mild hepatomegaly and splenomegaly unchanged. Nonspecific distention of the portal and splenic ve ins, potentially on the basis of portal hypertension. This is also unchanged. 3. 3.6 cm cyst of the left ovary. Suggest follow-up ultrasound in 8-12 weeks to confirm resolution. 4. Unchanged pelvic mass that is most likely a fibroid of the uterine remnant. Electronically signed by: Marck Campbell MD 03/04/2018 1:10 AM EDT
[2018-03-04] MEDS ORDERED: Bisacodyl 10 MG Supp RECTAL PRN (02:04)
[2018-03-04] MEDS ORDERED: Naloxone Inj 0.4 MG/ML Vial IV.PUSH PRN ×2 (04:33→12:02)
[2018-03-04] MEDS: KCL 20 mEq/D5W/NaCl 0.45% Inj 1,000 ML IV.CONT SCH ×2 (04:44→15:03)
[2018-03-04] MEDS: Morphine Inj 4 MG/ML Vial IV.PUSH PRN ×5 (04:45→21:31)
--- NOTE | 2018-03-04 09:54 | P.CONGI ---
History of Present Illness Consult date: 03/04/18 Consult reason: Abdominal pain, generalized Chief complaint: Abdominal Pain History of Present Illness: This is a slim borderline frail 32-year-old female who presents to the emergency room with generalized abdominal pain and abdominal guarding and nausea. Onset approximately 2 days before admission and also states that she is only been able to tolerate liquids for the past week. Patient has history of Oneal's esophagus and anemia, esophageal strictures and has been a known patient of Dr. Adamson in the past. Patient states last EGD within the past year and no history of colonoscopy or family history of colon cancer. Patient has history of gastrectomy with esophageal jejunal anastomosis, nail complicated by Oneal's esophagus. Patient also notes acute on chronic signs of dysphasia which comes and goes but has seemed worse in the past few months. Patient also notes 15-20 pound weight loss in 2 months due to being unable to eat and decreased appetite. On 03/03/2018 patient's hemoglobin was 7.2, WBC count 2.8, and platelet count 79. Patient states history of iron given to her IV and p.o. Patient denies any bowel movements over the past 2-3 days but denies any usual diarrhea or constipation. CT scan on admission shows surgical changes without abdominal mass small hiatal hernia. Mild hepatomegaly and splenomegaly unchanged nonspecific distention of the portal and splenic veins potentially on the basis of portal hypertension unchanged. 3.6 cm cyst left ovary unchanged pelvic mass which is likely a fibroid or uterine remnant. Review of Systems All other systems reviewed negative except as stated in HPI PMF[facility] - History History Provided By: Patient - Medical History Medical History: Medical History (Last Reviewed 03/04/18 @ 08:50 by Peter Gaviria) Barretts esophagus Anemia delivery delivered Esophageal stricture History of hysterectomy - Surgical History Surgical History: Surgical History (Last Reviewed 03/04/18 @ 08:22 by Shania Oliva) H/O abdominal surgery Status post gastrectomy - Tobacco History Second Hand Smoke Exposure: No Tobacco Use In Past 30 Days: No Smoking Status: Never smoker - Alcohol History How Often Do You Have a Drink Containing Alcohol: Never - Substance Use History Substance History: Active Abuse - Substance Use Type Marijuana Last Used: last week - Travel History Recent Travel in the [place] Within the Last 8 Weeks: No Recent Travel Out of the Country Within the Last 8 Weeks: No - Immunization History Tetanus Immunization: >5 Years Hx Influenza Vaccine This Season: No Medications and Allergies Active Medications: Active Medications Al Hydroxide/Mg Hydroxide (Milk Of Magnesia Liq) 30 ml PO Q12H PRN PRN Reason: Mild Constipation Bisacodyl (Dulcolax Supp) 10 mg RECTAL DAILY PRN PRN Reason: SEVERE CONSITIPATION Ceftriaxone Sodium 1,000 mg/ (Sodium Chloride) 100 mls @ 200 mls/hr IV.SIG Q24H JOSE DANIEL Potassium Chloride/Dextrose/Sod Cl (D5w/1/2ns + Kcl 20 Meq Inj) 1,000 mls @ 100 mls/hr IV.CONT .Q10H JOSE DANIEL Last Admin: 03/04/18 04:44 Dose: 100 mls/hr Lactulose (Lactulose Liq) 30 ml PO DAILY PRN PRN Reason: SEVERE CONSITIPATION Morphine Sulfate (Morphine Inj) 2 mg IV.PUSH Q3H PRN PRN Reason: PAIN 3-5; IF UABLE TO TAKE PO Last Admin: 03/04/18 08:30 Dose: 2 mg Morphine Sulfate (Morphine Inj) 4 mg IV.PUSH Q3H PRN PRN Reason: PAIN 6-10;IF UNABLE TO TAKE PO Last Admin: 03/04/18 04:45 Dose: 4 mg Naloxone HCl (Narcan Inj) 0.4 mg IV.PUSH UNSCH PRN PRN Reason: SEE LABEL COMMENTS Sennosides (Senokot) 17.2 mg PO Q12H PRN PRN Reason: Moderate Constipation Sodium Chloride (Ns Flush) 2 ml IV.FLUSH PRN PRN PRN Reason: FLUSH AFTER USING IV ACCESS Last Admin: 03/03/18 21:55 Dose: 2 ml Temazepam (Restoril) 15 mg PO HS PRN PRN Reason: INSOMNIA Allergies Allergy/AdvReac Type Severity Reaction Status Date / Time amoxicillin Allergy Severe Swelling Verified 03/04/18 02:22 penicillin G Allergy Severe HOT Verified 03/04/18 02:22 FLASHES, H/A sumatriptan Allergy Severe DIZZY Verified 03/04/18 02:22 ALL CILLINS Allergy Severe Abdominal Uncoded 03/04/18 02:22 Pain Home Medications Medication Instructions Recorded Confirmed Type No Known Home Medications 03/03/18 03/03/18 History Exam Vital signs: Vital Signs 03/03/18 17:06 03/03/18 21:10 03/04/18 01:00 Temperature 99.3 F Pulse Rate 106 H 80 84 Respiratory Rate 28 H 16 16 Blood Pressure 88/52 L 117/68 106/64 Pulse Oximetry 99 100 100 03/04/18 04:13 03/04/18 05:10 03/04/18 08:00 Temperature 98.4 F 98.1 F Pulse Rate 80 85 Respiratory Rate 16 16 18 Blood Pressure 99/57 L 105/62 Pulse Oximetry 97 100 Intake & Output 03/03/18 03/04/18 03/04/18 18:59 06:59 18:59 Intake Total 0 / 0 Balance 0 / 0 Weight 45.359 kg 45.359 kg Intake: Oral 0 / 0 Other: Date of Last Bowel Movement 03/01/18 03/02/18 Weight On Admission 45.359 kg - Constitutional mild distress - Routine HEENT Exam Head: Present: normocephalic, atraumatic Eye: Present: EOMI, PERRL ENT: Present: mucous membranes dry, oropharynx clear - Routine Neck Exam Present: supple (Thin) - Routine Respiratory Exam Present: CTA bilaterally - Routine Cardiovascular Exam Present: RRR - Routine Abdominal Exam Present: tenderness, guarding - Routine Extremities Exam Present: full ROM (Thin) - Routine Skin Exam Present: intact (Tattoos noted) - Routine Neurological Exam Present: alert (Fair to good historian), normal speech Results - Labs CBC & Chem 7: 03/03/18 21:19 03/03/18 21:19 Labs: Laboratory Results - last 24 hr 03/03/18 03/03/18 03/03/18 21:19 21:19 21:19 WBC 2.8 L RBC 1.85 L Hgb 7.2 L Hct 20.8 L* MCV 112.5 H MCH 39.2 H MCHC 34.8 RDW 23.1 H Plt Count 79 L MPV 8.2 Prelim Diff (Auto) Slide review pending Neut % (Auto) 30.9 Lymph % (Auto) 60.6 H Placer % (Auto) 7.9 Eos % (Auto) 0.3 Baso % (Auto) 0.3 Neut # (Auto) 0.9 L Lymph # (Auto) 1.7 Placer # (Auto) 0.2 Eos # (Auto) 0.0 Baso # (Auto) 0.0 WBC Differential Manual diff final Seg Neuts % (Manual) 34 Band Neuts % (Manual) 1 Lymphocytes % (Manual) 56 H Monocytes % (Manual) 6 Metamyelocytes % (Man) 1 Myelocytes % (Man) 2 H Abs Neuts (Manual) 1.1 L Nucleated RBCs/100 WBC 1 H Differential Comment . Platelet Estimate Low L Platelet Morphology Normal Basophilic Stippling Faint H Ovalocytes 1+ H Acanthocytes (Spur) Occ H Keratocytes 1+ H Sodium 139 Potassium 3.4 L Chloride 104 Carbon Dioxide 24.4 Anion Gap 11 BUN 9 Creatinine 0.78 Estimated GFR Greater than 89 Random Glucose 85 Lactic Acid 0.8 Calcium 9.1 Total Bilirubin 1.2 H AST 117 H ALT 43 Alkaline Phosphatase 61 Total Protein 7.4 Albumin 3.8 Lipase 166 Urine Color Urine Clarity Urine pH Ur Specific [place] Urine Protein Urine Glucose (UA) Urine Ketones Urine Occult Blood Urine Nitrate Urine Bilirubin Urine Urobilinogen Ur Leukocyte Esterase Urine RBC Urine WBC Urine WBC Clumps Ur Squamous Epith Cells Amorphous Sediment Urine Bacteria Urine Mucus Micro UA Comment Urine Culture Comments 03/03/18 21:19 WBC RBC Hgb Hct MCV MCH MCHC RDW Plt Count MPV Prelim Diff (Auto) Neut % (Auto) Lymph % (Auto) Placer % (Auto) Eos % (Auto) Baso % (Auto) Neut # (Auto) Lymph # (Auto) Placer # (Auto) Eos # (Auto) Baso # (Auto) WBC Differential Seg Neuts % (Manual) Band Neuts % (Manual) Lymphocytes % (Manual) Monocytes % (Manual) Metamyelocytes % (Man) Myelocytes % (Man) Abs Neuts (Manual) Nucleated RBCs/100 WBC Differential Comment Platelet Estimate Platelet Morphology Basophilic Stippling Ovalocytes Acanthocytes (Spur) Keratocytes Sodium Potassium Chloride Carbon Dioxide Anion Gap BUN Creatinine Estimated GFR Random Glucose Lactic Acid Calcium Total Bilirubin AST ALT Alkaline Phosphatase Total Protein Albumin Lipase Urine Color Shira Urine Clarity Cloudy H Urine pH 6.0 Ur Specific [place] 1.014 Urine Protein 100 H Urine Glucose (UA) Negative Urine Ketones Negative Urine Occult Blood Large H Urine Nitrate Positive H Urine Bilirubin Negative Urine Urobilinogen 4 or greater Ur Leukocyte Esterase Large H Urine RBC 22 H Urine WBC Urine WBC Clumps Many H Ur Squamous Epith Cells 7 Amorphous Sediment Rare H Urine Bacteria Many H Urine Mucus Few H Micro UA Comment Culture indicated Urine Culture Comments Culture indicated - Imaging Impressions Abdomen/Pelvis CT 03/04/18 00:00 CONCLUSION: 1. Surgical changes of the stomach without a perceptible abdominal mass. Small hiatal hernia again noted. 2. Mild hepatomegaly and splenomegaly unchanged. Nonspecific distention of the portal and splenic veins, potentially on the basis of portal hypertension. This is also unchanged. 3. 3.6 cm cyst of the left ovary. Suggest follow-up ultrasound in 8-12 weeks to confirm resolution. 4. Unchanged pelvic mass that is most likely a fibroid of the uterine remnant. Assessment and Plan (1) Abdominal pain Status: Acute Code(s): R10.9 - Unspecified abdominal pain - Plan Nausea but no vomiting. Patient states 15-20 pound weight loss in the past 2 months which has continued to make patient a frail individual. She is not tolerating any solid foods and is drinking liquids at least for the past week maybe longer. Dysphasia seems to come and go but also notes a significant history in the past with dilations and esophageal strictures been done last EGD was 1 year ago no previous colonoscopy and no family history of colon cancer. Anorexia, acute on chronic?, Patient is frail and notes 15-20 pounds weight loss in the past 2 months. Consider Megace? Abdominal pain worsened over the past 2-3 days with tenderness and some guarding. CT scan showed some mild splenomegaly and hepatomegaly unchanged nonspecific distention of the portal and splenic veins. Small hiatal hernia 3.6 cm cyst on the left ovary. Abdominal pain questionable GI related. Discussed with patient the possibility for EGD colonoscopy with possible dilation. Patient is okay for EGD but is questioning whether she wants to have colonoscopy or not labs show symptomatic anemia 7.2 on admission, platelet count 79 history of anemia and IV and p.o. iron infusions Oneal's esophagus seen on EGD which was approximately 1 year ago. Patient does note positive for marijuana use but no alcohol or tobacco. Patient denies any obvious bleeding. Plan N.p.o. Anti-emetics Bowel regimen Discussed EGD colonoscopy, patient currently agrees to EGD with dilatation, TBA Further recommendations to follow Patient was seen per myself and Dr. Yang, this note was written on her behalf
[2018-03-04] MEDS ORDERED: Lidocaine PF 1% Inj 5 ML Syringe INFILTRATN ONE (12:00)
--- NOTE | 2018-03-04 12:00 | P.HPIM ---
History of Present Illness Primary Care Physician: No Primary Care Physician Chief Complaint: Abdominal pain History of Present Illness: 32-year-old female with a history of Oneal's esophagitis, esophageal stricture presents to emergency room with 1 week history of worsening generalized abdominal pain along with pain with swallowing. She states that she has not had a bowel movement for the past 3 days and has been constipated. She has seen some blood with her urination. She denies any symptoms of dysuria or urinary frequency or urgency. She has not had any unusual vaginal discharges she denies any associated fever with the symptoms. She has not had any unusual food intake. She states she has been swallowing only clear liquids and swallowing solids causes significant pain has not been eating well. She has a history of gastrectomy and jejunal anastomosis. Inpatient Certification: I certify that the inpatient services were ordered in accordance with Medicare regulations governing the order. This includes certification that hospital inpatient services are reasonable and necessary and in the case of services not specified as inpatient-only under 42 CFR 419.22(n), that they are appropriately provided as inpatient services in accordance to with the 2-midnight benchmark under 43 CFR 412.3(e) Estimated Total Length of Stay (Days): 2 Plans for Post Hospital Care: Home Review of Systems All other systems reviewed negative except as stated in HPI PMFSH - History History Provided By: Patient - Medical History Medical History: Medical History (Last Updated 03/04/18 @ 11:55 by Nicki Kaminski MD) Barretts esophagus History of hysterectomy Anemia Esophageal stricture - Surgical History Surgical History: Surgical History (Last Updated 03/04/18 @ 11:55 by Nicki Kaminski MD) History of Status post gastrectomy - Family History Family History: Family History (Last Updated 03/04/18 @ 11:56 by Nicki Kaminski MD) Mother Family history of breast cancer - Tobacco History Second Hand Smoke Exposure: No Tobacco Use In Past 30 Days: No Smoking Status: Never smoker - Alcohol History How Often Do You Have a Drink Containing Alcohol: Never - Substance Use History Substance History: Active Abuse - Substance Use Type Marijuana Last Used: last week - Travel History Recent Travel in the [place] Within the Last 8 Weeks: No Recent Travel Out of the Country Within the Last 8 Weeks: No - Immunization History Tetanus Immunization: >5 Years Hx Influenza Vaccine This Season: No Medications and Allergies Active Medications: Active Medications Al Hydroxide/Mg Hydroxide (Milk Of Magnesia Liq) 30 ml PO Q12H PRN PRN Reason: Mild Constipation Bisacodyl (Dulcolax Supp) 10 mg RECTAL DAILY PRN PRN Reason: SEVERE CONSITIPATION Ceftriaxone Sodium 1,000 mg/ (Sodium Chloride) 100 mls @ 200 mls/hr IV.SIG Q24H JOSE DANIEL Potassium Chloride/Dextrose/Sod Cl (D5w/1/2ns + Kcl 20 Meq Inj) 1,000 mls @ 100 mls/hr IV.CONT .Q10H JOSE DANIEL Last Admin: 03/04/18 04:44 Dose: 100 mls/hr Lactulose (Lactulose Liq) 30 ml PO DAILY PRN PRN Reason: SEVERE CONSITIPATION Morphine Sulfate (Morphine Inj) 2 mg IV.PUSH Q3H PRN PRN Reason: PAIN 3-5; IF UABLE TO TAKE PO Last Admin: 03/04/18 08:30 Dose: 2 mg Morphine Sulfate (Morphine Inj) 4 mg IV.PUSH Q3H PRN PRN Reason: PAIN 6-10;IF UNABLE TO TAKE PO Last Admin: 03/04/18 04:45 Dose: 4 mg Naloxone HCl (Narcan Inj) 0.4 mg IV.PUSH UNSCH PRN PRN Reason: SEE LABEL COMMENTS Sennosides (Senokot) 17.2 mg PO Q12H PRN PRN Reason: Moderate Constipation Sodium Chloride (Ns Flush) 2 ml IV.FLUSH PRN PRN PRN Reason: FLUSH AFTER USING IV ACCESS Last Admin: 03/03/18 21:55 Dose: 2 ml Temazepam (Restoril) 15 mg PO HS PRN PRN Reason: INSOMNIA Allergies Allergy/AdvReac Type Severity Reaction Status Date / Time amoxicillin Allergy Severe Swelling Verified 03/04/18 02:22 penicillin G Allergy Severe HOT Verified 03/04/18 02:22 FLASHES, H/A sumatriptan Allergy Severe DIZZY Verified 03/04/18 02:22 ALL CILLINS Allergy Severe Abdominal Uncoded 03/04/18 02:22 Pain Home Medications Medication Instructions Recorded Confirmed Type No Known Home Medications 03/03/18 03/03/18 History Exam Vital signs: Vital Signs 03/03/18 17:06 03/03/18 21:10 03/04/18 01:00 Temperature 99.3 F Pulse Rate 106 H 80 84 Respiratory Rate 28 H 16 16 Blood Pressure 88/52 L 117/68 106/64 Pulse Oximetry 99 100 100 03/04/18 04:13 03/04/18 05:10 03/04/18 08:00 Temperature 98.4 F 98.1 F Pulse Rate 80 85 Respiratory Rate 16 16 18 Blood Pressure 99/57 L 105/62 Pulse Oximetry 97 100 Intake & Output 03/03/18 03/04/18 03/04/18 18:59 06:59 18:59 Intake Total 0 / 0 Balance 0 / 0 Weight 45.359 kg 45.359 kg Intake: Oral 0 / 0 Other: Date of Last Bowel Movement 03/01/18 03/02/18 Weight On Admission 45.359 kg Narrative: GENERAL: Thin -[place] female in no acute distress SKIN: Warm and dry. HEAD: Atraumatic. Normocephalic. EYES: Pupils equal and round. No scleral icterus. No injection or drainage. ENT: No nasal bleeding or discharge. Mucous membranes pink and moist. NECK: Trachea midline. No JVD. CARDIOVASCULAR: Regular rate and rhythm. RESPIRATORY: No accessory muscle use. Clear to auscultation. Breath sounds equal bilaterally. GASTROINTESTINAL: Abdomen soft, non-tender, nondistended. Hepatic and splenic margins not palpable. Midline surgical scar with few bowel sounds MUSCULOSKELETAL: Extremities without clubbing, cyanosis, or edema. No obvious deformities. NEUROLOGICAL: Awake and alert to person place time and situation. No obvious cranial nerve deficits. Motor grossly within normal limits. Five out of 5 muscle strength in the arms and legs. Normal speech. PSYCHIATRIC: Appropriate mood and affect; insight and judgment normal. Results - Labs CBC & Chem 7: 03/03/18 21:19 03/03/18 21:19 Labs: Short CBC 03/03/18 Range/Units 21:19 WBC 2.8 L (4.0-11.0) th/mm3 Hgb 7.2 L (11.6-15.3) gm/dL Hct 20.8 L* (35.0-46.0) % Plt Count 79 L (150-450) th/mm3 BMP 03/03/18 21:19 Sodium 139 Potassium 3.4 L Chloride 104 Carbon Dioxide 24.4 BUN 9 Creatinine 0.78 Calcium 9.1 Liver Function 03/03/18 Range/Units 21:19 Total Bilirubin 1.2 H (0.2-1.0) mg/dL AST 117 H (15-37) U/L ALT 43 (10-53) U/L Alkaline Phosphatase 61 (45-117) U/L Albumin 3.8 (3.4-5.0) g/dL Urine 03/03/18 Range/Units 21:19 Urine Color Shira (Yellw/Straw) Urine Clarity Cloudy H (Clear) Urine pH 6.0 (5.0-8.5) Ur Specific [place] 1.014 (1.002-1.035) Urine Protein 100 H (Neg-Trace) mg/dL Urine Glucose (UA) Negative (Negative) mg/dL - Imaging Impressions Abdomen/Pelvis CT 03/04/18 00:00 CONCLUSION: 1. Surgical changes of the stomach without a perceptible abdominal mass. Small hiatal hernia again noted. 2. Mild hepatomegaly and splenomegaly unchanged. Nonspecific distention of the portal and splenic veins, potentially on the basis of portal hypertension. This is also unchanged. 3. 3.6 cm cyst of the left ovary. Suggest follow-up ultrasound in 8-12 weeks to confirm resolution. 4. Unchanged pelvic mass that is most likely a fibroid of the uterine remnant. Caprini VTE Risk Assessment Caprini VTE Risk Assessment: No/Low Risk (score <= 1) Caprini Risk Assessment Model: Point Value = 1 Point Value = 2 Point Value = 3 Point Value = 5 Age 41-60 Minor surgery BMI > 25 kg/m2 Swollen legs Varicose veins or History of unexplained or recurrent spontaneous Oral contraceptives or hormone replacement Sepsis (< 1 month) Serious lung disease, including pneumonia (< 1 month) Abnormal pulmonary function Acute myocardial infarction Congestive heart failure (< 1 month) History of inflammatory bowel disease Medical patient at bed rest Age 61-74 Arthroscopic surgery Major open surgery (> 45 min) Laparoscopic surgery (> 45 min) Malignancy Confined to bed (> 72 hours) Immobilizing plaster cast Central venous access Age >= 75 History of VTE Family history of VTE Factor V Leiden Prothrombin [id number] Lupus anticoagulant Anticardiolipin antibodies Elevated serum homocysteine Heparin-induced thrombocytopenia Other congenital or acquired thrombophilia Stroke (< 1 month) Elective arthroplasty Hip, pelvis, or leg fracture Acute spinal cord injury (< 1 month) Prophylaxis Regimen: Total Risk Factor Score Risk Level Prophylaxis Regimen 0-1 Low Early ambulation 2 Moderate Order ONE of the following: *Sequential Compression Device (SCD) *Heparin 5000 units SQ BID 3-4 Higher Order ONE of the following medications: *Heparin 5000 units SQ TID *Enoxaparin/Lovenox 40 mg SQ daily (WT < 150 kg, CrCl > 30 mL/min) *Enoxaparin/Lovenox 30 mg SQ daily (WT < 150 kg, CrCl > 10-29 mL/min) *Enoxaparin/Lovenox 30 mg SQ BID (WT < 150 kg, CrCl > 30 mL/min) AND/OR *Sequential Compression Device (SCD) 5 or more Highest Order ONE of the following medications: *Heparin 5000 units SQ TID (Preferred with Epidurals) *Enoxaparin/Lovenox 40 mg SQ daily (WT < 150 kg, CrCl > 30 mL/min) *Enoxaparin/Lovenox 30 mg SQ daily (WT < 150 kg, CrCl > 10-29 mL/min) *Enoxaparin/Lovenox 30 mg SQ BID (WT < 150 kg, CrCl > 30 mL/min) AND *Sequential Compression Device (SCD) Assessment and Plan - Plan 1. Dysphagia with associated abdominal pain and acute on chronic anemiaGI service has been consulted. Plan for EGD today. Patient has declined a colonoscopy today. Continue with pain medication PPI further recommendation as per GI. 2. History of Oneal's esophagitis-PPI 3. Anorexia with weight loss associated with #1EGD today encourage p.o. intake , supplement with meals. 4. Acute on chronic anemiairon IV and monitor. For EGD with GI today. Patient seems currently asymptomatic at this time. 5. DVT prophylaxisbilateral SCDs No anticoagulation due to acute anemia until acute bleeding has been ruled out H&P: Quality - VTE Deep Vein Thrombosis/Pulmonary Embolism Present on Admission: No
[2018-03-04] MEDS ORDERED: Acetaminophen 325 MG Tablet PO PRN (12:02)
--- NOTE | 2018-03-04 13:50 | GIPROC ---
[facility] [address] [facility]. [facility], [address] EGD WITH DILATION PROCEDURE REPORT EXAM DATE: 03/04/2018 PATIENT NAME: Octavia Muir MR#: [id number] BIRTHDATE: 1985 ATTENDING: Eneida Yang MD ORDER #: [id number] CUSHION COVER INSPECTOR: Daniel Reynolds and Mónica Easley STATUS: inpatient INDICATIONS: The patient is a 32 yr old female here for an EGD with dilation due to nausea, vomiting weight loss PROCEDURE PERFORMED: EGD w/ biopsy MEDICATIONS: None and Per Anesthesia. TOPICAL ANESTHETIC: none CONSENT: The patient understands the risks and benefits of the procedure and understands that these risks include, but are not limited to: sedation, allergic reaction, infection, perforation and/or bleeding. Alternative means of evaluation and treatment include, among others: physical exam, x-rays, and/or surgical intervention. The patient elects to proceed with this endoscopic procedure. medical equipment was checked for proper function. Hand hygiene and appropriate measures for infection prevention was taken. After the risks, benefits and alternatives of the procedure were thoroughly explained, Informed consent was verified, confirmed and timeout was successfully executed by the treatment team. The patient was anesthetized with topical anesthesia and the Pentax EG-[id number] endoscope was introduced through the mouth and advanced to the proximal jejunum. The instrument was slowly withdrawn as the mucosa was fully examined. S/p total gastrectomy s/p gastrojejunal anastomosis stricture distal esophagus. Dilation was performed at gastroesophageal junction. DILATOR: SIZE(S): RESISTANCE: HEME: APPEARANCE: Dilator: Irving[place] over guidewire Size(s): 14,15 COMMENT: Retroflexion was not performed ADVERSE EVENTS: There were no complications. IMPRESSIONS: 1. S/p total gastrectomy s/p gastrojejunal anastomosis stricture distal esophagus 2. 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
[2018-03-04] MEDS: Pantoprazole Inj 40 MG Vial IV.PUSH SCH (15:02)
--- NOTE | 2018-03-04 20:13 | P.PN ---
Subjective Interval history: not seen Physical Exam Vital signs: Vital Signs 03/03/18 21:10 03/04/18 01:00 03/04/18 04:13 Temperature Pulse Rate 80 84 Respiratory Rate 16 16 16 Blood Pressure 117/68 106/64 Pulse Oximetry 100 100 03/04/18 05:10 03/04/18 08:00 03/04/18 12:00 Temperature 98.4 F 98.1 F 98.0 F Pulse Rate 80 85 74 Respiratory Rate 16 18 17 Blood Pressure 99/57 L 105/62 93/50 L Pulse Oximetry 97 100 100 03/04/18 13:58 03/04/18 16:00 Temperature 97.7 F 98.2 F Pulse Rate 74 76 Respiratory Rate 16 18 Blood Pressure 91/57 L 101/53 L Pulse Oximetry 100 98 Intake & Output 03/04/18 03/04/18 03/05/18 06:59 18:59 06:59 Intake Total 0 / 0 1900 / 1900 Balance 0 / 0 1900 / 1900 Weight 45.359 kg Intake: IV 1000 / 1000 D5W/1/2NS + KCL 20 mEq Inj 1, 1000 / 1000 000 ML @ 100 mls/hr IV.CONT . Q10H JOSE DANIEL Rx#:[id number] Oral 0 / 0 900 / 900 Other: # Voids 4 Date of Last Bowel Movement 03/01/18 03/02/18 Weight On Admission 45.359 kg Results - Labs CBC & Chem 7: 03/03/18 21:19 03/03/18 21:19 Laboratory Results - last 24 hr 03/03/18 03/03/18 03/03/18 21:19 21:19 21:19 WBC 2.8 L RBC 1.85 L Hgb 7.2 L Hct 20.8 L* MCV 112.5 H MCH 39.2 H MCHC 34.8 RDW 23.1 H Plt Count 79 L MPV 8.2 Prelim Diff (Auto) Slide review pending Neut % (Auto) 30.9 Lymph % (Auto) 60.6 H [place] % (Auto) 7.9 Eos % (Auto) 0.3 Baso % (Auto) 0.3 Neut # (Auto) 0.9 L Lymph # (Auto) 1.7 Kimball # (Auto) 0.2 Eos # (Auto) 0.0 Baso # (Auto) 0.0 WBC Differential Manual diff final Seg Neuts % (Manual) 34 Band Neuts % (Manual) 1 Lymphocytes % (Manual) 56 H Monocytes % (Manual) 6 Metamyelocytes % (Man) 1 Myelocytes % (Man) 2 H Abs Neuts (Manual) 1.1 L Nucleated RBCs/100 WBC 1 H Differential Comment . Platelet Estimate Low L Platelet Morphology Normal Basophilic Stippling Faint H Ovalocytes 1+ H Acanthocytes (Spur) Occ H Keratocytes 1+ H Sodium 139 Potassium 3.4 L Chloride 104 Carbon Dioxide 24.4 Anion Gap 11 BUN 9 Creatinine 0.78 Estimated GFR Greater than 89 Random Glucose 85 Lactic Acid 0.8 Calcium 9.1 Total Bilirubin 1.2 H AST 117 H ALT 43 Alkaline Phosphatase 61 Total Protein 7.4 Albumin 3.8 Lipase 166 Urine Color Urine Clarity Urine pH Ur Specific [place] Urine Protein Urine Glucose (UA) Urine Ketones Urine Occult Blood Urine Nitrate Urine Bilirubin Urine Urobilinogen Ur Leukocyte Esterase Urine RBC Urine WBC Urine WBC Clumps Ur Squamous Epith Cells Amorphous Sediment Urine Bacteria Urine Mucus Micro UA Comment Urine Culture Comments 03/03/18 21:19 WBC RBC Hgb Hct MCV MCH MCHC RDW Plt Count MPV Prelim Diff (Auto) Neut % (Auto) Lymph % (Auto) Kimball % (Auto) Eos % (Auto) Baso % (Auto) Neut # (Auto) Lymph # (Auto) [place] # (Auto) Eos # (Auto) Baso # (Auto) WBC Differential Seg Neuts % (Manual) Band Neuts % (Manual) Lymphocytes % (Manual) Monocytes % (Manual) Metamyelocytes % (Man) Myelocytes % (Man) Abs Neuts (Manual) Nucleated RBCs/100 WBC Differential Comment Platelet Estimate Platelet Morphology Basophilic Stippling Ovalocytes Acanthocytes (Spur) Keratocytes Sodium Potassium Chloride Carbon Dioxide Anion Gap BUN Creatinine Estimated GFR Random Glucose Lactic Acid Calcium Total Bilirubin AST ALT Alkaline Phosphatase Total Protein Albumin Lipase Urine Color Shira Urine Clarity Cloudy H Urine pH 6.0 Ur Specific [place] 1.014 Urine Protein 100 H Urine Glucose (UA) Negative Urine Ketones Negative Urine Occult Blood Large H Urine Nitrate Positive H Urine Bilirubin Negative Urine Urobilinogen 4 or greater Ur Leukocyte Esterase Large H Urine RBC 22 H Urine WBC Urine WBC Clumps Many H Ur Squamous Epith Cells 7 Amorphous Sediment Rare H Urine Bacteria Many H Urine Mucus Few H Micro UA Comment Culture indicated Urine Culture Comments Culture indicated Microbiology 03/03/18 21:19 Clean Catch Urine Urine Culture - Preliminary gram negative rods - Imaging Impressions Abdomen/Pelvis CT 03/04/18 00:00 CONCLUSION: 1. Surgical changes of the stomach without a perceptible abdominal mass. Small hiatal hernia again noted. 2. Mild hepatomegaly and splenomegaly unchanged. Nonspecific distention of the portal and splenic veins, potentially on the basis of portal hypertension. This is also unchanged. 3. 3.6 cm cyst of the left ovary. Suggest follow-up ultrasound in 8-12 weeks to confirm resolution. 4. Unchanged pelvic mass that is most likely a fibroid of the uterine remnant. Assessment and Plan - Plan 1. Dysphagia with associated abdominal pain and acute on chronic anemiaGI service has been consulted. Plan for EGD Patient has declined a colonoscopy. Continue with pain medication PPI further recommendation as per GI. 2. History of Oneal's esophagitis-PPI 3. Anorexia with weight loss associated with #1EGD today encourage p.o. intake , supplement with meals. 4. Acute on chronic anemiairon IV and monitor. For EGD with GI today. Patient seems currently asymptomatic at this time. 5. DVT prophylaxisbilateral SCDs No anticoagulation due to acute anemia until acute bleeding has been ruled out
[2018-03-04] MEDS: Temazepam 15 MG Capsule PO PRN (21:33)
[2018-03-05] MEDS: Morphine Inj 4 MG/ML Vial IV.PUSH PRN ×3 (02:59→21:46)
[2018-03-05] MEDS: KCL 20 mEq/D5W/NaCl 0.45% Inj 1,000 ML IV.CONT SCH ×3 (03:08→21:50)
[2018-03-05 07:31] LABS: Baso % (Auto) 0.2 % (0.0-2.0); Eos % (Auto) 0.6 % (0.0-4.0); Lymph # (Auto) 1.9 th/mm3 (1.0-4.8); Lymph % (Auto) 57.5 % (9.0-44.0); Mean Corpuscular HGB Conc 34.8 % (32.0-36.0); Mean Corpuscular Hemoglobin 39.6 pg (27.0-34.0); Mean Corpuscular Volume 113.8 fL (80.0-100.0); Mean Platelet Volume 8.2 fL (7.0-11.0); Mono # (Auto) 0.2 th/mm3 (0.0-0.9); Mono % (Auto) 7.2 % (0.0-8.0); Neut # (Auto) 1.1 th/mm3 (1.8-7.7); Neut % (Auto) 34.5 % (16.0-70.0); Platelet Count 71 th/mm3 (150-450); Red Blood Count 1.68 mil/mm3 (4.00-5.30); Red Cell Distribution Width 25.3 % (11.6-17.2); White Blood Count 3.3 th/mm3 (4.0-11.0)
[2018-03-05 07:38] LABS: INR 1.2 Ratio; Prothrombin Time 11.9 sec (9.8-11.6)
[2018-03-05 07:44] LABS: Hemoglobin 6.6 gm/dL (11.6-15.3)
[2018-03-05 07:45] LABS: Hematocrit 19.1 % (35.0-46.0)
[2018-03-05 07:57] LABS: Alanine Aminotransferase 33 U/L (10-53)
[2018-03-05 07:59] LABS: Albumin 3.3 g/dL (3.4-5.0); Alkaline Phosphatase 51 U/L (45-117); Anion Gap 7 meq/L (5-15); Aspartate Aminotransferase 96 U/L (15-37); Blood Urea Nitrogen 5 mg/dL (7-18); Calcium 8.8 mg/dL (8.5-10.1); Carbon Dioxide 25.7 meq/L (21.0-32.0); Chloride 110 meq/L (98-107); Glomerular Filtration Rate Greater Than 89 mL/min (>89); Glucose,Random 87 mg/dL (74-106); Potassium 3.9 meq/L (3.5-5.1); Sodium 143 meq/L (136-145); Total Protein 6.5 g/dL (6.4-8.2)
[2018-03-05] MEDS ORDERED: Sodium Chlor 0.9% Inj 250 ML IV.SIG SCH (09:00)
[2018-03-05 09:02] LABS: Eosinophils 1 % (0-4); Lymphocytes 57 % (9-44); Monocytes 10 % (0-8); Myelocytes 1 % (0-0); Ovalocytes 1+; Platelet Morphology Normal (Normal); Tallied Nucleated RBC 1 (0-0); Tear Drop Cells 1+
--- NOTE | 2018-03-05 11:28 | P.PN ---
Subjective Interval history: f/u abd pain. Usual abd pain wants better food . Wants cscope and agrees with BT Physical Exam Vital signs: Vital Signs 03/04/18 12:00 03/04/18 13:58 03/04/18 16:00 Temperature 98.0 F 97.7 F 98.2 F Pulse Rate 74 74 76 Respiratory Rate 17 16 18 Blood Pressure 93/50 L 91/57 L 101/53 L Pulse Oximetry 100 100 98 03/04/18 20:00 03/04/18 21:33 03/05/18 00:00 Temperature 98.8 F 98.4 F Pulse Rate 74 79 Respiratory Rate 18 18 18 Blood Pressure 90/53 L 96/60 L Pulse Oximetry 100 96 03/05/18 03:01 03/05/18 04:00 03/05/18 08:00 Temperature 98.6 F 98.9 F Pulse Rate 72 76 Respiratory Rate 20 18 12 Blood Pressure 105/60 94/59 L Pulse Oximetry 100 100 Intake & Output 03/04/18 03/05/18 03/05/18 18:59 06:59 18:59 Intake Total 1900 / 1900 1720 / 1720 Balance 1900 / 1900 1720 / 1720 Intake: IV 1000 / 1000 1100 / 1100 D5W/1/2NS + KCL 20 mEq Inj 1, 1000 / 1000 1000 / 1000 000 ML @ 100 mls/hr IV.CONT . Q10H JOSE DANIEL Rx#:[id number] Rocephin Inj 1,000 MG In NS Inj 100 / 100 100 ML @ 200 mls/hr IV.SIG Q24H JOSE DANIEL Rx#:[id number] Oral 900 / 900 620 / 620 Other: # Voids 4 5 Date of Last Bowel Movement 03/02/18 03/02/18 Narrative: GENERAL: Well-developed in no distress SKIN: Warm and dry. CARDIOVASCULAR: Regular rate and rhythm without murmurs, gallops, or rubs. RESPIRATORY: Breath sounds equal bilaterally. No accessory muscle use. GASTROINTESTINAL: Abdomen soft, mild diffuse tenderness, nondistended. MUSCULOSKELETAL: No cyanosis, or edema. BACK: Nontender without obvious deformity. No CVA tenderness. Results - Labs CBC & Chem 7: 03/05/18 06:31 03/05/18 06:31 Laboratory Results - last 24 hr 03/05/18 03/05/18 03/05/18 06:31 06:31 06:31 WBC 3.3 L RBC 1.68 L Hgb 6.6 L* Hct 19.1 L* MCV 113.8 H MCH 39.6 H MCHC 34.8 RDW 25.3 H Plt Count 71 L MPV 8.2 Prelim Diff (Auto) Slide review pending Neut % (Auto) 34.5 Lymph % (Auto) 57.5 H [place] % (Auto) 7.2 Eos % (Auto) 0.6 Baso % (Auto) 0.2 Neut # (Auto) 1.1 L Lymph # (Auto) 1.9 [place] # (Auto) 0.2 Eos # (Auto) 0.0 Baso # (Auto) 0.0 WBC Differential Manual diff final Seg Neuts % (Manual) 30 Band Neuts % (Manual) 1 Lymphocytes % (Manual) 57 H Monocytes % (Manual) 10 H Eosinophils % (Manual) 1 Myelocytes % (Man) 1 H Abs Neuts (Manual) 1.1 L Nucleated RBCs/100 WBC 1 H Differential Comment . Platelet Estimate Low L Platelet Morphology Normal Tear Drop Cells 1+ H Ovalocytes 1+ H Keratocytes Occ H PT 11.9 H INR 1.2 Sodium 143 Potassium 3.9 Chloride 110 H Carbon Dioxide 25.7 Anion Gap 7 BUN 5 L Creatinine 0.63 Estimated GFR Greater than 89 Random Glucose 87 Calcium 8.8 Total Bilirubin 0.8 AST 96 H ALT 33 Alkaline Phosphatase 51 Total Protein 6.5 D Albumin 3.3 L MTS Gel Crossmatch 03/05/18 09:15 WBC RBC Hgb Hct MCV MCH MCHC RDW Plt Count MPV Prelim Diff (Auto) Neut % (Auto) Lymph % (Auto) [place] % (Auto) Eos % (Auto) Baso % (Auto) Neut # (Auto) Lymph # (Auto) [place] # (Auto) Eos # (Auto) Baso # (Auto) WBC Differential Seg Neuts % (Manual) Band Neuts % (Manual) Lymphocytes % (Manual) Monocytes % (Manual) Eosinophils % (Manual) Myelocytes % (Man) Abs Neuts (Manual) Nucleated RBCs/100 WBC Differential Comment Platelet Estimate Platelet Morphology Tear Drop Cells Ovalocytes Keratocytes PT INR Sodium Potassium Chloride Carbon Dioxide Anion Gap BUN Creatinine Estimated GFR Random Glucose Calcium Total Bilirubin AST ALT Alkaline Phosphatase Total Protein Albumin MTS Gel Crossmatch See Detail Microbiology 03/03/18 21:19 Clean Catch Urine Urine Culture - Preliminary gram negative rods Assessment and Plan - Plan 1. Dysphagia with associated abdominal pain and acute on chronic anemiaGI service has been consulted. S/p EGD results not available at this time. She wants to proceed with colonoscopy. Continue with pain medication PPI further recommendation as per GI. 2. History of Oneal's esophagitis-PPI 3. Anorexia with weight loss associated with #1 encourage p.o. intake, supplement with meals. 4. Acute on chronic anemia. Worse. Agrees with blood transfusion. Obtain iron studies and Hemoccult stools. 5. DVT prophylaxisbilateral SCDs No anticoagulation due to acute anemia until acute bleeding has been ruled out
--- NOTE | 2018-03-05 13:51 | P.PNGI ---
Subjective Interval history: Is resting in the bed is more responsive today and symptoms are more controlled Patient does have generalized weakness and is pending 2 units packed RBCs transfusion No acute nausea vomiting or diarrhea Continues hydration at 100 cc an hour, patient is so hungry and is begging for some soft food today before her clear liquid diet in a.m. and colonoscopy Wednesday HGB 6.6 Physical Exam Vital signs: Vital Signs 03/04/18 13:58 03/04/18 16:00 03/04/18 20:00 Temperature 97.7 F 98.2 F 98.8 F Pulse Rate 74 76 74 Respiratory Rate 16 18 18 Blood Pressure 91/57 L 101/53 L 90/53 L Pulse Oximetry 100 98 100 03/04/18 21:33 03/05/18 00:00 03/05/18 03:01 Temperature 98.4 F Pulse Rate 79 Respiratory Rate 18 18 20 Blood Pressure 96/60 L Pulse Oximetry 96 03/05/18 04:00 03/05/18 08:00 03/05/18 12:00 Temperature 98.6 F 98.9 F 98.4 F Pulse Rate 72 76 70 Respiratory Rate 18 12 14 Blood Pressure 105/60 94/59 L 118/54 L Pulse Oximetry 100 100 100 03/05/18 12:39 03/05/18 12:56 Temperature 98.0 F 98.4 F Pulse Rate 77 70 Respiratory Rate 16 Blood Pressure 113/61 118/54 L Pulse Oximetry Intake & Output 03/04/18 03/05/18 03/05/18 18:59 06:59 18:59 Intake Total 1900 / 1900 1720 / 1720 1000 / 1000 Balance 1900 / 1900 1720 / 1720 1000 / 1000 Intake: IV 1000 / 1000 1100 / 1100 1000 / 1000 D5W/1/2NS + KCL 20 mEq Inj 1, 1000 / 1000 1000 / 1000 1000 / 1000 000 ML @ 100 mls/hr IV.CONT . Q10H JOSE DANIEL Rx#:[id number] Rocephin Inj 1,000 MG In NS Inj 100 / 100 100 ML @ 200 mls/hr IV.SIG Q24H JOSE DANIEL Rx#:[id number] Oral 900 / 900 620 / 620 Intake (Blood Product) Amt 0 / 0 Rbc As-3 Leukoreduced Unit 0 / 0 [id number] Other: # Voids 4 5 Date of Last Bowel Movement 03/02/18 03/02/18 - Constitutional no acute distress (Patient is frail but appears to feel somewhat better today except for her extreme fatigue) - Routine HEENT Exam Head: Present: normocephalic, atraumatic ENT: Present: mucous membranes dry - Routine Neck Exam Present: supple - Routine Respiratory Exam Present: CTA bilaterally - Routine Cardiovascular Exam Present: RRR - Routine Abdominal Exam Present: soft - Routine Extremities Exam Present: full ROM - Routine Skin Exam Present: intact - Routine Neurological Exam Present: alert, oriented X3 - Detailed Neurological Exam: Coma Scale Eye Opening: Spontaneous Verbal Response: Oriented - Routine Psychiatric Exam Present: normal affect Results - Labs CBC & Chem 7: 03/05/18 06:31 03/05/18 06:31 Laboratory Results - last 24 hr 03/05/18 03/05/18 03/05/18 06:31 06:31 06:31 WBC 3.3 L RBC 1.68 L Hgb 6.6 L* Hct 19.1 L* MCV 113.8 H MCH 39.6 H MCHC 34.8 RDW 25.3 H Plt Count 71 L MPV 8.2 Prelim Diff (Auto) Slide review pending Neut % (Auto) 34.5 Lymph % (Auto) 57.5 H [place] % (Auto) 7.2 Eos % (Auto) 0.6 Baso % (Auto) 0.2 Neut # (Auto) 1.1 L Lymph # (Auto) 1.9 [place] # (Auto) 0.2 Eos # (Auto) 0.0 Baso # (Auto) 0.0 WBC Differential Manual diff final Seg Neuts % (Manual) 30 Band Neuts % (Manual) 1 Lymphocytes % (Manual) 57 H Monocytes % (Manual) 10 H Eosinophils % (Manual) 1 Myelocytes % (Man) 1 H Abs Neuts (Manual) 1.1 L Nucleated RBCs/100 WBC 1 H Differential Comment . Platelet Estimate Low L Platelet Morphology Normal Tear Drop Cells 1+ H Ovalocytes 1+ H Keratocytes Occ H PT 11.9 H INR 1.2 Sodium 143 Potassium 3.9 Chloride 110 H Carbon Dioxide 25.7 Anion Gap 7 BUN 5 L Creatinine 0.63 Estimated GFR Greater than 89 Random Glucose 87 Calcium 8.8 Total Bilirubin 0.8 AST 96 H ALT 33 Alkaline Phosphatase 51 Total Protein 6.5 D Albumin 3.3 L Blood Type Antibody Screen MTS Gel Crossmatch 03/05/18 09:15 WBC RBC Hgb Hct MCV MCH MCHC RDW Plt Count MPV Prelim Diff (Auto) Neut % (Auto) Lymph % (Auto) [place] % (Auto) Eos % (Auto) Baso % (Auto) Neut # (Auto) Lymph # (Auto) [place] # (Auto) Eos # (Auto) Baso # (Auto) WBC Differential Seg Neuts % (Manual) Band Neuts % (Manual) Lymphocytes % (Manual) Monocytes % (Manual) Eosinophils % (Manual) Myelocytes % (Man) Abs Neuts (Manual) Nucleated RBCs/100 WBC Differential Comment Platelet Estimate Platelet Morphology Tear Drop Cells Ovalocytes Keratocytes PT INR Sodium Potassium Chloride Carbon Dioxide Anion Gap BUN Creatinine Estimated GFR Random Glucose Calcium Total Bilirubin AST ALT Alkaline Phosphatase Total Protein Albumin Blood Type B Positive Antibody Screen Negative MTS Gel Crossmatch See Detail Microbiology 03/03/18 21:19 Clean Catch Urine Urine Culture - Preliminary gram negative rods Assessment and Plan (1) Abdominal pain Status: Acute Code(s): R10.9 - Unspecified abdominal pain - Plan Nausea but no vomiting. Patient states 15-20 pound weight loss in the past 2 months which has continued to make patient a frail individual. She is not tolerating any solid foods and is drinking liquids at least for the past week maybe longer. Dysphasia seems to come and go but also notes a significant history in the past with dilations and esophageal strictures been done last EGD was 1 year ago no previous colonoscopy and no family history of colon cancer. Anorexia, acute on chronic?, Patient is frail and notes 15-20 pounds weight loss in the past 2 months. Consider Megace? Abdominal pain worsened over the past 2-3 days with tenderness and some guarding. CT scan showed some mild splenomegaly and hepatomegaly unchanged nonspecific distention of the portal and splenic veins. Small hiatal hernia 3.6 cm cyst on the left ovary. Abdominal pain questionable GI related. Discussed with patient the possibility for EGD colonoscopy with possible dilation. Patient is okay for EGD but is questioning whether she wants to have colonoscopy or not labs show symptomatic anemia 7.2 on admission, platelet count 79 history of anemia and IV and p.o. iron infusions Oneal's esophagus seen on EGD which was approximately 1 year ago. Patient does note positive for marijuana use but no alcohol or tobacco. Patient denies any obvious bleeding. 03/05/2018 patient is resting in the bed and current symptoms of nausea vomiting diarrhea are controlled. Patient does still have some generalized abdominal tenderness to light palpation, mild improvement. Patient's hemoglobin 6.6 trending down plan for transfusion 2 units today. Patient has tolerated liquid diet with no nausea vomiting and is requesting some soft food today before her pending colonoscopy Wednesday a.m. encourage patient to eat slowly and chew food well and if there is any nausea vomiting she has to go back on her clear liquids today. Pending small bowel follow-through which will be done tomorrow since patient is having transfusion today. Note status post EGD with dilation performed on 03/04/2018. Findings include status post total gastrectomy with gastro duodenal anastomosis and stricture distal esophagus. Recommendations are small bowel follow-through with Gastrografin STOCK AND STATION AGENT if okay with primary recommendation return EGD 1 year. Plan Diet has been clear liquids but transition to soft foods today if patient tolerate Consent for colonoscopy Jerson a.m. 03/07/2018 N.p.o. at midnight 03/07/2018 Clear liquids on 03/06/2018 Prep mag citrate and Dulcolax Anti-emetics Further recommendations to follow Patient was seen per myself and Dr. Yang, this note was written on her behalf
[2018-03-05] MEDS: Pantoprazole Inj 40 MG Vial IV.PUSH SCH (14:37)
[2018-03-05 16:24] LABS: Iron 86 mcg/dL (50-170)
[2018-03-05 16:39] LABS: % Iron Saturation 41.2 % (20-50); Ferritin 63 ng/mL (8-252); Total Iron Binding Capacity 209 mcg/dL (250-450)
[2018-03-05] MEDS: Temazepam 15 MG Capsule PO PRN (21:49)
[2018-03-06] MEDS: KCL 20 mEq/D5W/NaCl 0.45% Inj 1,000 ML IV.CONT SCH ×3 (06:21→17:10)
--- NOTE | 2018-03-06 08:03 | P.PN ---
Subjective Interval history: Follow-up anemia. Patient has had vitamin B12 IM in the past. Unable to do SBFT today because she still has contrast in her GI tract. Physical Exam Vital signs: Vital Signs 03/05/18 12:00 03/05/18 12:39 03/05/18 12:56 Temperature 98.4 F 98.0 F 98.4 F Pulse Rate 70 77 70 Respiratory Rate 14 16 Blood Pressure 118/54 L 113/61 118/54 L Pulse Oximetry 100 03/05/18 14:30 03/05/18 16:00 03/05/18 18:18 Temperature 97.6 F 98.7 F 98.7 F Pulse Rate 64 63 66 Respiratory Rate 18 15 16 Blood Pressure 102/61 120/68 116/66 Pulse Oximetry 100 100 03/05/18 18:34 03/05/18 20:00 03/05/18 22:19 Temperature 98.3 F 98.3 F 98.2 F Pulse Rate 83 68 71 Respiratory Rate 18 18 Blood Pressure 114/68 113/73 119/74 Pulse Oximetry 99 100 99 03/06/18 00:00 Temperature 97.3 F L Pulse Rate 62 Respiratory Rate 18 Blood Pressure 127/83 Pulse Oximetry 100 Intake & Output 03/05/18 03/06/18 03/06/18 18:59 06:59 18:59 Intake Total 1400 / 1400 1907 / 1907 Balance 1400 / 1400 1907 / 1907 Weight 45.35 kg Intake: IV 1000 / 1000 977 / 977 D5W/1/2NS + KCL 20 mEq Inj 1, 1000 / 1000 877 / 877 000 ML @ 100 mls/hr IV.CONT . Q10H JOSE DANIEL Rx#:[id number] Rocephin Inj 1,000 MG In NS Inj 100 / 100 100 ML @ 200 mls/hr IV.SIG Q24H JOSE DANIEL Rx#:[id number] Oral 480 / 480 Other 50 / 50 Rbc As-3 Leukoreduced Unit 50 / 50 [id number] Intake (Blood Product) Amt 400 / 400 400 / 400 Rbc As-3 Leukoreduced Unit 400 / 400 [id number] Rbc As-3 Leukoreduced Unit 0 / 0 400 / 400 [id number] Other: Other Intake Source Rbc As-3 Leukoreduced Unit Saline Solution [id number] # Voids 7 2 Date of Last Bowel Movement 03/02/18 03/03/18 Narrative: GENERAL: Well-developed well-nourished in no distress SKIN: Warm and dry. CARDIOVASCULAR: Regular rate and rhythm without murmurs, gallops, or rubs. RESPIRATORY: Breath sounds equal bilaterally. No accessory muscle use. GASTROINTESTINAL: Abdomen soft, mild diffuse tenderness, nondistended. MUSCULOSKELETAL: No cyanosis, or edema. BACK: Nontender without obvious deformity. No CVA tenderness. No significant change in PE from previous Results - Labs CBC & Chem 7: 03/06/18 08:00 03/06/18 08:00 Laboratory Results - last 24 hr 03/05/18 03/05/18 03/05/18 06:31 06:31 09:15 WBC Differential Manual diff final Seg Neuts % (Manual) 30 Band Neuts % (Manual) 1 Lymphocytes % (Manual) 57 H Monocytes % (Manual) 10 H Eosinophils % (Manual) 1 Myelocytes % (Man) 1 H Abs Neuts (Manual) 1.1 L Nucleated RBCs/100 WBC 1 H Platelet Estimate Low L Platelet Morphology Normal Tear Drop Cells 1+ H Ovalocytes 1+ H Keratocytes Occ H Sodium 143 Potassium 3.9 Chloride 110 H Carbon Dioxide 25.7 Anion Gap 7 BUN 5 L Creatinine 0.63 Estimated GFR Greater than 89 Random Glucose 87 Calcium 8.8 Iron 86 TIBC 209 L % Saturation 41.2 Ferritin 63 Total Bilirubin 0.8 AST 96 H ALT 33 Alkaline Phosphatase 51 Total Protein 6.5 D Albumin 3.3 L Vitamin B12 Less than 60 L Folate 16.0 Blood Type B Positive Antibody Screen Negative MTS Gel Crossmatch See Detail Microbiology 03/03/18 21:19 Clean Catch Urine Urine Culture - Final Escherichia coli - Procedures EGD with dilatation Assessment and Plan - Plan 1. Dysphagia with associated abdominal pain and acute on chronic anemiaGI service has been consulted. S/p EGD with dilation performed on 03/04/2018. Findings include status post total gastrectomy with gastro duodenal anastomosis and stricture distal esophagus. Recommendations are small bowel follow-through with Gastrografin. She wants to proceed with colonoscopy. Continue with pain medication PPI further recommendation as per GI. 2. History of Oneal's esophagitis-PPI 3. Anorexia with weight loss associated with #1 encourage p.o. intake, supplement with meals. 4. Acute on chronic anemia. Tolerated blood transfusion. Follow-up Hemoccult.. Vit B12 deficiency s/p gastrectomy will replace 5. DVT prophylaxisbilateral SCDs No anticoagulation due to acute anemia until acute bleeding has been ruled out Discharge Planning: Not ready for discharge needs colonoscopy scheduled for tomorrow
[2018-03-06 08:38] LABS: Baso % (Auto) 0.4 % (0.0-2.0); Eos % (Auto) 1.2 % (0.0-4.0); Hematocrit 30.3 % (35.0-46.0); Hemoglobin 10.4 gm/dL (11.6-15.3); Lymph # (Auto) 1.8 th/mm3 (1.0-4.8); Lymph % (Auto) 52.9 % (9.0-44.0); Mean Corpuscular HGB Conc 34.4 % (32.0-36.0); Mean Corpuscular Hemoglobin 35.5 pg (27.0-34.0); Mean Corpuscular Volume 103.2 fL (80.0-100.0); Mean Platelet Volume 8.6 fL (7.0-11.0); Mono # (Auto) 0.3 th/mm3 (0.0-0.9); Mono % (Auto) 7.9 % (0.0-8.0); Neut # (Auto) 1.2 th/mm3 (1.8-7.7); Neut % (Auto) 37.6 % (16.0-70.0); Platelet Count 80 th/mm3 (150-450); Red Blood Count 2.94 mil/mm3 (4.00-5.30); White Blood Count 3.3 th/mm3 (4.0-11.0)
[2018-03-06 09:03] LABS: Anion Gap 10 meq/L (5-15); Blood Urea Nitrogen 7 mg/dL (7-18); Calcium 8.6 mg/dL (8.5-10.1); Carbon Dioxide 21.2 meq/L (21.0-32.0); Chloride 110 meq/L (98-107); Glomerular Filtration Rate Greater Than 89 mL/min (>89); Glucose,Random 85 mg/dL (74-106); Potassium 3.8 meq/L (3.5-5.1); Sodium 141 meq/L (136-145)
--- NOTE | 2018-03-06 10:15 | XR ---
EXAM DATE: 03/06/2018 10:11 AM EDT AGE/SEX: 32 years / Female INDICATIONS: Abdominal pain and constipation, attempted small bowel series. CLINICAL DATA: This is the patient's subsequent encounter. Patient reports that signs and symptoms h ave been present for 1 week and indicates a pain score of 5/10. MEDICAL/SURGICAL HISTORY: . Gastroesophageal reflux disease. Seizures. Hysterectomy. section. COMPARISON: [facility], UGI WITH SMALL BOWEL SERIES, 12/18/2011. . FINDINGS: The abdominal bowel gas pattern is normal. Copious amount of stool. Residual contrast in the large b owel. No abnormal masses, calcifications, or organomegaly is seen. The osseous structures are unrema rkable. Clips in the left upper abdomen. CONCLUSION: Constipation with residual contrast in the large bowel. Electronically signed by: Juan Ward MD 03/06/2018 10:14 AM EDT
[2018-03-06 10:26] LABS: Lymphocytes 50 % (9-44); Metamyelocytes 1 % (0-1); Monocytes 12 % (0-8); Myelocytes 1 % (0-0); Platelet Morphology Normal (Normal)
[2018-03-06 10:27] LABS: Ovalocytes 1+; Tear Drop Cells 1+
[2018-03-06] MEDS ORDERED: Magnesium Citrate Liq 300 ML Bottle PO ONE ×2 (15:00→18:00)
[2018-03-06] MEDS: Temazepam 15 MG Capsule PO PRN (22:25)
[2018-03-06] MEDS: Morphine Inj 4 MG/ML Vial IV.PUSH PRN (22:26)
[2018-03-06] MEDS ORDERED: Metoprolol Tartrate 25 MG Tablet PO SCH (23:00)
[2018-03-06] MEDS ORDERED: Sodium Chlor 0.9% Inj 500 ML IV.SIG SCH (23:00)
[2018-03-06] MEDS ORDERED: Chlorhexidine Gluconate 2% 1 Pack (2 Cloths) TOPICAL SCH (23:00)
[2018-03-07] MEDS: KCL 20 mEq/D5W/NaCl 0.45% Inj 1,000 ML IV.CONT SCH (03:36)
[2018-03-07] MEDS: Morphine Inj 4 MG/ML Vial IV.PUSH PRN ×2 (11:20→20:08)
--- NOTE | 2018-03-07 12:50 | GIPROC ---
[facility] [address] [facility]. [facility], [address] COLONOSCOPY PROCEDURE REPORT EXAM DATE: 03/07/2018 PATIENT NAME: Octavia Muir MR #: [id number] BIRTHDATE: 1985 ENDOSCOPIST: Faith Longo MD ORDER #: [id number] HYDROCHLORIC ACID OPERATOR: Roberto Johnson and Mónica Easley STATUS: inpatient INDICATIONS: The patient is a 32 yr old female here for a colonoscopy due to anemia, non-specific PROCEDURE PERFORMED: Sigmoidoscopy, diagnostic MEDICATIONS: None and Per Anesthesia. PREP QUALITY: inadequate PREP TYPE:Magnesium Citrate PREP TYPE:Type: ESTIMATED BLOOD LOSS: None CONSENT: The patient understands the risks and benefits of the procedure and understands that these risks include, but are not limited to: sedation, allergic reaction, infection, perforation and/or bleeding. Alternative means of evaluation and treatment include, among others: physical exam, x-rays, and/or surgical intervention. The patient elects to proceed with this endoscopic procedure. medical equipment was checked for proper function. Hand hygiene and appropriate measures for infection prevention was taken. After the risks, benefits and alternatives of the procedure were thoroughly explained, Informed consent was verified, confirmed and timeout was successfully executed by the treatment team. A digital exam was performed and revealed no abnormalities of the rectum The Pentax [id number] endoscope was introduced through the anus and advanced to the sigmoid colon. The instrument was then slowly withdrawn as the colon was fully examined. COLON FINDINGS: A significant amount of stool was present throughout the entire examined colon. Retroflexion was not performed The scope was then completely withdrawn from the patient and the procedure terminated. PROCEDURE WITHDRAWAL TIME:5minutes ADVERSE EVENTS: There were no complications. IMPRESSIONS: 1. Significant amount of stool was present throughout the entire examined colon 2. Incomplete study RECOMMENDATIONS: Colonoscopy in AM with better prep. RECALL: In AM Faith Longo MD eSigned: Faith Longo MD 03/07/2018 12:50 PM cc:
[2018-03-07] MEDS ORDERED: PEG 3350/E-Lyte Soln 4000 ML Bottle PO SCH (14:00)
[2018-03-07] MEDS ORDERED: Glycopyrrolate Inj 1 MG/5 ML Syringe IV.PUSH ONE (14:30)
[2018-03-07] MEDS ORDERED: Lidocaine PF 1% Inj 5 ML Syringe INFILTRATN ONE (14:30)
[2018-03-07] MEDS ORDERED: Morphine Inj 4 MG/ML Vial IV.PUSH PRN (15:58)
--- NOTE | 2018-03-07 16:02 | P.PN ---
Subjective Interval history: Follow-up abdominal pain and anemia. Was treated that she had to repeat colonoscopy tomorrow. States she is hungry and that Lortab is not helping. Physical Exam Vital signs: Vital Signs 03/06/18 20:00 03/07/18 00:00 03/07/18 08:00 Temperature 98.4 F 98.1 F 98.2 F Pulse Rate 60 54 L 76 Respiratory Rate 18 18 20 Blood Pressure 123/67 142/63 H 100/57 L Pulse Oximetry 100 100 99 03/07/18 13:00 Temperature 98.7 F Pulse Rate 148 H Respiratory Rate 18 Blood Pressure 133/83 Pulse Oximetry 100 Intake & Output 03/06/18 03/07/18 03/07/18 18:59 06:59 18:59 Intake Total 1000 / 1000 1289 / 1289 Balance 1000 / 1000 1289 / 1289 Weight 45.34 kg Intake: IV 1000 / 1000 989 / 989 D5W/1/2NS + KCL 20 mEq Inj 1, 1000 / 1000 989 / 989 000 ML @ 50 mls/hr IV.CONT . Q20H JOSE DANIEL Rx#:[id number] Oral 300 / 300 Other: # Voids 3 3 Date of Last Bowel Movement 03/03/18 Narrative: GENERAL: Well-developed well-nourished in no distress SKIN: Warm and dry. CARDIOVASCULAR: Regular rate and rhythm without murmurs, gallops, or rubs. RESPIRATORY: Breath sounds equal bilaterally. No accessory muscle use. GASTROINTESTINAL: Abdomen soft, mild diffuse tenderness, nondistended. MUSCULOSKELETAL: No cyanosis, or edema. BACK: Nontender without obvious deformity. No CVA tenderness. Results - Labs CBC & Chem 7: 03/06/18 08:00 03/06/18 08:00 - Procedures EGD with dilatation Assessment and Plan - Plan 1. Dysphagia with associated abdominal pain and acute on chronic anemiaGI service has been consulted. S/p EGD with dilation performed on 03/04/2018. Findings include status post total gastrectomy with gastro duodenal anastomosis and stricture distal esophagus. Recommendations are small bowel follow-through with Gastrografin. Needs rpt colonoscopy tomorrow 2/2 poor prep. Continue with pain medication and PPI further recommendation as per GI. 2. History of Oneal's esophagitis-PPI 3. Anorexia with weight loss associated with #1 encourage p.o. intake, supplement with meals. 4. Acute on chronic anemia. Tolerated blood transfusion. Follow-up Hemoccult.. Vit B12 deficiency s/p gastrectomy ct replacement 5. DVT prophylaxisbilateral SCDs No anticoagulation due to acute anemia until acute bleeding has been ruled out Discharge Planning: Not ready for discharge needs colonoscopy scheduled for tomorrow
[2018-03-07] MEDS: Temazepam 15 MG Capsule PO PRN (20:57)
[2018-03-08] MEDS: Morphine Inj 4 MG/ML Vial IV.PUSH PRN ×2 (05:35→11:25)
--- NOTE | 2018-03-08 10:19 | GIPROC ---
[facility] [address] [facility]. [facility], [address] COLONOSCOPY PROCEDURE REPORT EXAM DATE: 03/08/2018 PATIENT NAME: Octavia Muir MR #: [id number] BIRTHDATE: 1985 ENDOSCOPIST: Faith Longo MD ORDER #: [id number] TRANSIT COACH OPERATOR: STATUS: inpatient INDICATIONS: The patient is a 32 yr old female here for a colonoscopy due to anemia, non-specific PROCEDURE PERFORMED: Colonoscopy, diagnostic MEDICATIONS: None and Per Anesthesia. PREP QUALITY: poor PREP TYPE:GoLytely ESTIMATED BLOOD LOSS: None CONSENT: The patient understands the risks and benefits of the procedure and understands that these risks include, but are not limited to: sedation, allergic reaction, infection, perforation and/or bleeding. Alternative means of evaluation and treatment include, among others: physical exam, x-rays, and/or surgical intervention. The patient elects to proceed with this endoscopic procedure. medical equipment was checked for proper function. Hand hygiene and appropriate measures for infection prevention was taken. After the risks, benefits and alternatives of the procedure were thoroughly explained, Informed consent was verified, confirmed and timeout was successfully executed by the treatment team. A digital exam revealed no abnormalities of the rectum The endoscope was introduced through the anus and advanced to the cecum, which was identified by both the appendix and ileocecal valve. The instrument was then slowly withdrawn as the colon was fully examined. COLON FINDINGS: A significant amount of stool was present throughout the entire examined colon. Retroflexed views revealed no abnormalities The scope was then completely withdrawn from the patient and the procedure terminated. PROCEDURE WITHDRAWAL TIME:8minutes ADVERSE EVENTS: There were no complications. IMPRESSIONS: 1. Significant amount of stool was present throughout the entire examined colon 2. Retroflexed views revealed no abnormalities RECOMMENDATIONS: No treatment RECALL: Return within 3 months for Colonoscopy as out patient Faith Longo MD eSigned: Faith Longo MD 03/08/2018 10:19 AM cc: PATIENT NAME: Octavia Muir MR#: [id number]
[2018-03-08 10:57] LABS: Anion Gap 11 meq/L (5-15); Blood Urea Nitrogen 3 mg/dL (7-18); Calcium 8.7 mg/dL (8.5-10.1); Carbon Dioxide 20.9 meq/L (21.0-32.0); Chloride 110 meq/L (98-107); Glomerular Filtration Rate Greater Than 89 mL/min (>89); Glucose,Random 82 mg/dL (74-106); Potassium 3.9 meq/L (3.5-5.1); Sodium 142 meq/L (136-145)
[2018-03-08] MEDS ORDERED: Lidocaine PF 1% Inj 5 ML Syringe INFILTRATN ONE (12:00)
--- NOTE | 2018-03-08 13:11 | P.DCO ---
- Home Health Nursing Order: Medication education-adverse effect - Certification I have seen patient Octavia Muir on 03/08/18. My clinical findings support the need for the requested home health care services because: Deconditioned with increased weakness I certify that my clinical findings support that this patient is homebound because: Need for psychosocial assistance
--- NOTE | 2018-03-08 13:16 | P.DS ---
Date of admission: 03/04/18 02:04 Primary care physician: No Primary Care Physician Brief History from admission: 32-year-old female with a history of Oneal's esophagitis, esophageal stricture presents to emergency room with 1 week history of worsening generalized abdominal pain along with pain with swallowing. She states that she has not had a bowel movement for the past 3 days and has been constipated. She has seen some blood with her urination. She denies any symptoms of dysuria or urinary frequency or urgency. She has not had any unusual vaginal discharges she denies any associated fever with the symptoms. She has not had any unusual food intake. She states she has been swallowing only clear liquids and swallowing solids causes significant pain has not been eating well. She has a history of gastrectomy and jejunal anastomosis. DS: Diagnosis - Discharge Diagnosis (1) B12 deficiency anemia Status: Acute DS: Medications - Discharge Medications Prescriptions: cyanocobalamin (vitamin B-12) 1,000 mcg IM DAILY #7 ml pantoprazole 40 mg PO DAILY #30 tab DS: Summary Hospital Course: 1. Dysphagia with associated abdominal pain and acute on chronic anemiaGI service has been consulted. S/p EGD with dilation performed on 03/04/2018. Findings include status post total gastrectomy with gastro duodenal anastomosis and stricture distal esophagus. Recommendations are small bowel follow-through with Gastrografin which can be done o/p. Needs rpt colonoscopy w/c was unremarkable recommend to repeat in 3 months. Continue with pain medication and PPI further recommendation as per GI. 2. History of Oneal's esophagitis-PPI 3. Anorexia with weight loss associated with #1 encourage p.o. intake, supplement with meals. 4. Acute on chronic anemia. Tolerated blood transfusion. Follow-up Hemoccult. Vit B12 deficiency s/p gastrectomy ct replacement with 1000 mcg IM daily until March 12 then once a week for 6 weeks then monthly 5. Chronic pain on narcotics followed by pain management Dr. Cedillo on oxycodone. Eforcse checked counseled regarding narcs DVT prophylaxisbilateral SCDs No anticoagulation due to acute anemia until acute bleeding has been ruled out - Time Spent with Patient Total time spent providing and/or coordinating discharge services: - Quality: VTE Deep Vein Thrombosis/Pulmonary Embolism Present on Admission: No Exam Vital signs: Vital Signs 03/07/18 16:53 03/07/18 20:00 03/08/18 00:00 Temperature 98.4 F 97.9 F 98.5 F Pulse Rate 73 57 L 60 Respiratory Rate 20 20 16 Blood Pressure 117/56 L 103/63 102/59 L Pulse Oximetry 100 100 100 03/08/18 04:00 03/08/18 08:00 03/08/18 11:10 Temperature 97.3 F L 98.6 F 98.6 F Pulse Rate 67 54 L 48 L Respiratory Rate 16 16 14 Blood Pressure 95/54 L 117/56 L 108/62 Pulse Oximetry 100 99 100 03/08/18 11:26 03/08/18 11:27 Temperature 98.5 F Pulse Rate 57 L Respiratory Rate 18 18 Blood Pressure 130/63 Pulse Oximetry 100 Intake & Output 03/07/18 03/08/18 03/08/18 18:59 06:59 18:59 Intake Total 100 / 100 240 / 240 200 / 200 Balance 100 / 100 240 / 240 200 / 200 Intake: Oral 240 / 240 Anesthesia Amount 100 / 100 200 / 200 Other: # Voids 10 Date of Last Bowel Movement 03/08/18 03/09/18 # Bowel Movements 6 1 Narrative: GENERAL: This is an asthenic well-developed patient, in no apparent distress. CARDIOVASCULAR: Regular rate and rhythm without murmurs, gallops, or rubs. RESPIRATORY: Clear to auscultation. Breath sounds equal bilaterally. No wheezes , rales, or rhonchi. GASTROINTESTINAL: Abdomen soft, non-tender, nondistended. Normal active bowel sounds MUSCULOSKELETAL: Extremities without clubbing, cyanosis, or edema. NEURO: Alert & Oriented x4 to person, place, time, situation. Moves all ext x4 Results Procedures completed during hospitalization: EGD with dilatation Labs on day of discharge: Labs from last 24 hours 03/08/18 03/08/18 08:00 08:00 Sodium 142 Potassium 3.9 Chloride 110 H Carbon Dioxide 20.9 L Anion Gap 11 BUN 3 L Creatinine 0.54 Estimated GFR Greater than 89 Random Glucose 82 Calcium 8.7 Magnesium 2.2 - Impressions ITS Impressions Abdomen/Pelvis CT 03/04/18 00:00 CONCLUSION: 1. Surgical changes of the stomach without a perceptible abdominal mass. Small hiatal hernia again noted. 2. Mild hepatomegaly and splenomegaly unchanged. Nonspecific distention of the portal and splenic veins, potentially on the basis of portal hypertension. This is also unchanged. 3. 3.6 cm cyst of the left ovary. Suggest follow-up ultrasound in 8-12 weeks to confirm resolution. 4. Unchanged pelvic mass that is most likely a fibroid of the uterine remnant. Abdomen X-Ray 03/06/18 00:00 CONCLUSION: Constipation with residual contrast in the large bowel. Discharge Plan - Discharge Disposition Patient Disposition: 01 Discharge Home - Discharge Condition Condition: Stable - Discharge Order Discharge Orders: Discharge Order (Routine); Ordered 03/08/18 Ordered By: Jose Issa - Physicians Team Primary Care Provider: Primary Care Camille Ko Attending Provider: Jose Issa Other Providers: Eneida Yang MD
== END 2018-03-08 14:31 | disposition home or self-care (01) ==
LOC: NEPD 16:40 → NEDA 03-04 02:04 → N06 03-04 04:14
PROVIDERS: ADMIT Internal Medicine; ATTEND Internal Medicine
PROC: [UNRECOGNIZED PROCEDURE] (2018-03-07 12:32)
PROC: COLONOS (2018-03-08 09:47)